=== PATIENT | male | born 1975 | race Two or more races ===

== ENCOUNTER 2019-02-28 23:09 | Observation (INO) ==
[2019-02-28] MEDS ORDERED: HydrALAZINE HCL 20 MG/ML VIAL IV STA (23:28)
[2019-02-28 23:38] LABS: Basophils # (auto) 0.03 K/uL (0-0.2); Basophils % (auto) 0.3 %; Eosinophils # (auto) 0.47 K/uL (0-0.5); Eosinophils % (auto) 5.4 %; Hematocrit (blood only) 46.1 % (42-52); Immature Granulocytes # (auto) 0.04 K/uL (0.00-0.02); Immature Granulocytes % (auto) 0.5 %; Lymphocytes # (auto) 2.58 K/uL (1.2-3.4); Lymphocytes % (auto) 29.5 %; Mean Corpuscular Hgb Conc 34.7 g/dL (32-36); Mean Corpuscular Volume 92.2 fL (80-100); Mean Platelet Volume 10.7 fL (7.4-10.4); Monocytes # (auto) 0.52 K/uL (0.11-0.59); Monocytes % (auto) 5.9 %; Neutrophils % (auto) 58.4 %; Platelet Count 258 K/uL (130-400); RDW Coefficient of Variation 12.7 % (11.5-14.5); RDW Standard Deviation 42.5 fL (36.4-46.3); White Blood Count 8.74 K/uL (4.8-10.8)
[2019-03-01 00:19] LABS: Albumin Globulin Ratio 0.9 (0.9-2); Albumin Level 3.8 gm/dl (3.4-5.0); BUN Creatinine Ratio 14.2 (10-20); Bilirubin,Total 0.5 mg/dl (0.2-1); Calcium 8.9 mg/dl (8.5-10.1); Creatinine Clr Calc Pharmacy 115.6 ml/min; Est GFR (African American) 94.8; Est GFR (Non-African American) 81.8; Globulin 4.1 gm/dl (2.5-4.0); Magnesium 2.1 mg/dl (1.8-2.4); Potassium 4.1 mmol/L (3.5-5.1); Thyroid Stimulating Hormone 2.21 uIu/ml (0.300-4.500); Total Protein 7.9 gm/dl (6.4-8.2); Troponin I 0.088 ng/ml (0-0.045)
[2019-03-01] MEDS ORDERED: HydrALAZINE HCL 20 MG/ML VIAL IV STA (00:20)
[2019-03-01] MEDS ORDERED: OPTIRAY 320 125ml IV PRN (00:57)
[2019-03-01] MEDS ORDERED: LOSARTAN POTASSIUM 25 MG TAB PO STA ×2 (01:12→03:48)
[2019-03-01 01:22] LABS: Appearance Urine Clear (Clear); Bilirubin Urine Negative (Negative); Blood Urine Negative (Negative); Color Urine Yellow; Glucose Urine UA Negative (Negative); Ketones Urine Negative (Negative); Leukocyte Esterase Urine Negative (Negative); Nitrite Urine Negative (Negative); Protein Urine Negative (Negative); Specific Gravity Urine > 1.045 (1.000-1.030); Urobilinogen Urine Negative (Negative); pH Urine 7.5 (4.5-7.5)
[2019-03-01 01:26] LABS: Partial Thromboplastin Ratio 0.9; Partial Thromboplastin Time 24.7 Seconds (21.0-31.0)
[2019-03-01 01:42] LABS: Amphetamines+Metham, Urine Neg (Neg); Barbiturates, Urine Neg (Neg); Benzodiazepine, Urine Neg (Neg); Cocaine, Urine Neg (Neg); MDMA (Ecstacy), Urine Neg (Neg); Methadone, Urine Neg (Neg); Opiate, Urine Neg (Neg); Phencyclidine, Urine Neg (Neg)
--- NOTE | 2019-03-01 01:54 | Emergency Department Note ---
History of Present Illness General Chief complaint: Dizziness Stated complaint: TIGHTNESS IN CHEST History of Present Illness This 43-year-old presents to the ER complaining of high blood pressure, headache, lightheaded, dizzy, not feeling right and leg tingling Location: Generalized Quality: Lightheaded Severity: Moderate Duration: Tonight Timing: Symptoms started tonight Context: Patient was confused and brought him in Modifying factors: better with nothing; worse with activity Patient has not taken his blood pressure medicines for the past 3 days. He was hospitalized last year in [place] for hypertensive encephalopathy. Symptoms feel somewhat similar. He was told he had some abnormality with his heart but is unsure. Patient states he felt off and felt lightheaded and his head started hurting and felt tingling in his legs and some mild discomfort in his chest. He sat down felt slightly better but symptoms got worse and he came here. He was confused for a few minutes but that has now resolved. Patient denies current chest pain, dyspnea, abdominal pain, localized numbness or tingling or weakness. Patient denies any other medical problems besides his high blood pressure. They just moved to the area 3 months ago. Home Medications Home Medications Medication Instructions Recorded Confirmed Type losartan 25 mg PO DAILY 02/28/19 02/28/19 History metoprolol succinate 25 mg PO DAILY 02/28/19 02/28/19 History nebivolol [Bystolic] 10 mg PO DAILY 02/28/19 02/28/19 History nifedipine 10 mg PO DAILY 02/28/19 02/28/19 History Allergies Allergy/AdvReac Type Severity Reaction Status Date / Time No Known Allergies Allergy Unverified 02/28/19 23:39 Past Med/Surg History Medical History (Updated 03/01/19 @ 04:09 by Rebeca Zamora PA-C) High blood pressure Surgical History No pertinent past surgical history Social History Preferred Language: Romansh Communication Ability: Effective Beliefs That Will Affect Care: None Current Living Situation: Spouse Feels Safe at Home: Yes Safety Concerns: Feels Safe At This Time Smoking Status: Never smoker Hx Alcohol Use: No Hx Substance Use: No Review of Systems A total of 10 systems reviewed and were otherwise negative Physical Exam Vital Signs Vital Signs - 24 hr 02/28/19 23:12 02/28/19 23:28 02/28/19 23:37 Temperature 36.4 C L Temperature Source Oral Pulse Rate 62 Pulse Rate [Apical] 65 Pulse Rate from SpO2 Sensor Respiratory Rate 16 18 Respiratory Effort / Characteristics Non-Labored Spontaneous Respiratory Depth Normal Blood Pressure 247/145 H Blood Pressure [Left Arm] 167/114 H Blood Pressure Mean 179 Blood Pressure Mean [Left Arm] 131 Pulse Oximetry 97 98 97 Oxygen Delivery Method Room Air Room Air Room Air Sepsis Recent Fever Within 48 Hours No Sepsis New/Unexplained Change in Mental Status No Sepsis Action Taken by Nursing No Action Required 02/28/19 23:45 02/28/19 23:56 03/01/19 00:28 Temperature Temperature Source Pulse Rate Pulse Rate [Apical] 67 67 74 Pulse Rate from SpO2 Sensor Respiratory Rate 18 18 18 Respiratory Effort / Characteristics Non-Labored Spontaneous Non-Labored Spontaneous Non-Labored Spontaneous Respiratory Depth Normal Normal Normal Blood Pressure Blood Pressure [Left Arm] 172/125 H 215/136 H 158/108 H Blood Pressure Mean Blood Pressure Mean [Left Arm] 140 162 124 Pulse Oximetry 98 97 96 Oxygen Delivery Method Room Air Room Air Room Air Sepsis Recent Fever Within 48 Hours Sepsis New/Unexplained Change in Mental Status Sepsis Action Taken by Nursing 03/01/19 00:57 03/01/19 01:34 03/01/19 02:27 Temperature Temperature Source Pulse Rate Pulse Rate [Apical] 72 70 57 L Pulse Rate from SpO2 Sensor Respiratory Rate 18 18 16 Respiratory Effort / Characteristics Non-Labored Spontaneous Non-Labored Spontaneous Non-Labored Spontaneous Respiratory Depth Normal Normal Normal Blood Pressure Blood Pressure [Left Arm] 163/105 H 169/107 H 140/106 H Blood Pressure Mean Blood Pressure Mean [Left Arm] 124 127 117 Pulse Oximetry 97 97 96 Oxygen Delivery Method Room Air Room Air Room Air Sepsis Recent Fever Within 48 Hours Sepsis New/Unexplained Change in Mental Status Sepsis Action Taken by Nursing 03/01/19 02:30 03/01/19 02:45 03/01/19 03:01 Temperature Temperature Source Pulse Rate 60 73 65 Pulse Rate [Apical] Pulse Rate from SpO2 Sensor 66 Respiratory Rate 18 21 21 Respiratory Effort / Characteristics Respiratory Depth Blood Pressure 145/97 H 154/93 H 142/93 H Blood Pressure [Left Arm] Blood Pressure Mean 108 105 103 Blood Pressure Mean [Left Arm] Pulse Oximetry 95 96 96 Oxygen Delivery Method Room Air Room Air Room Air Sepsis Recent Fever Within 48 Hours Sepsis New/Unexplained Change in Mental Status Sepsis Action Taken by Nursing VITALS: Vitals are noted on the nurse's note and reviewed by myself. Vital signs hypertensive. GENERAL: Pleasant male, in no acute distress, nondiaphoretic, well-developed well-nourished. SKIN: The skin was without rashes, erythema, edema, or bruising. There is no tenting of the skin. Capillary reflex less than 2 seconds. HEAD: Normocephalic atraumatic. EARS: External auditory canals clear EYES: Pupils equal round and reactive to light and accommodation. Conjunctivae without injection, sclerae without icterus. Extraocular movements intact. NOSE: Patent, turbinates without inflammation or discharge. MOUTH: Mucous membranes moist. Pharynx without erythema or exudate. Uvula midline. Airway patent. Tongue does not deviate. NECK: Supple without nuchal rigidity. No lymphadenopathy. No thyromegaly. Cervical spine is nontender. No JVD. HEART: Regular rate and rhythm LUNGS: Clear to auscultation bilaterally without wheezes, rales or rhonchi. No retractions or accessory muscle use. ABDOMEN: Positive bowel sounds x 4. Normal tympanic percussion. Soft, nontender, without masses or organomegaly. Block sign negative. No guarding or rebound tenderness. No CVA tenderness MUSCULOSKELETAL: No muscle atrophy, erythema, or edema noted. 5 out of 5 strength throughout. NEURO: Patient was alert and oriented to person place and time. Normal sensation to light and sharp touch. No focal neurological deficits. Cranial nerves II through XII grossly intact. No pronator. Cerebellar exam intact. Course Administered Medications Lactated Ringer's (Lr) 1,000 mls @ 40 mls/hr IV .Q24H ONE Stop: 03/02/19 03:47 Last Admin: 03/01/19 03:58 Dose: 40 mls/hr Documented by: [id number] Discontinued Medications Hydralazine HCl (Hydralazine Hcl) 10 mg IV NOW STA Stop: 02/28/19 23:29 Last Admin: 02/28/19 23:33 Dose: 10 mg Documented by: [id number] Hydralazine HCl (Hydralazine Hcl) 10 mg IV NOW STA Stop: 03/01/19 00:21 Last Admin: 03/01/19 01:37 Dose: Not Given Documented by: [id number] Ioversol (Optiray 320 125ml) 125 ml IV ONCE PRN PRN Reason: Interaction Checking Stop: 03/05/19 00:56 Last Admin: 03/01/19 00:58 Dose: 117 ml Documented by: [id number] Losartan Potassium (Cozaar) 25 mg PO NOW STA Stop: 03/01/19 01:13 Last Admin: 03/01/19 01:34 Dose: 25 mg Documented by: [id number] Losartan Potassium (Cozaar) 75 mg PO NOW STA Stop: 03/01/19 03:49 Last Admin: 03/01/19 04:07 Dose: 75 mg Documented by: [id number] Critical Care Time Critical Care Time: Yes Total Critical Care Time: 30 I have personally spent greater than 30 minutes of critical care time in the direct management of this patient. This includes bedside care, interpretation of diagnostic studies, and testing, discussion with consultants, patient, and family members, and other required patient management activities. This 30 minutes is in excess of all separately billable procedures. Medical Decision Making Medical Records Attestation: I reviewed the patient's medical records. Home Medications Current Medication List: was personally reviewed by me Laboratory Data Attestation: I reviewed the patient's lab results. Result diagrams: 02/28/19 23:25 02/28/19 23:25 Lab Results 02/28/19 02/28/19 02/28/19 Range/Units 23:25 23:25 23:25 WBC 8.74 (4.8-10.8) K/uL RBC 5.00 (4.7-6.1) M/uL Hgb 16.0 (14.0-18.0) g/dL Hct 46.1 (42-52) % MCV 92.2 (80-100) fL MCH 32.0 (25-34) pg MCHC 34.7 (32-36) g/dL RDW Std Deviation 42.5 (36.4-46.3) fL RDW Coeff of Shabana 12.7 (11.5-14.5) % Plt Count 258 (130-400) K/uL MPV 10.7 H (7.4-10.4) fL Immature Gran % (Auto) 0.5 % Neut % (Auto) 58.4 % Lymph % (Auto) 29.5 % Mccormick % (Auto) 5.9 % Eos % (Auto) 5.4 % Baso % (Auto) 0.3 % Immature Gran # (Auto) 0.04 H (0.00-0.02) K/uL Neut # (Auto) 5.10 (1.4-6.5) K/uL Lymph # (Auto) 2.58 (1.2-3.4) K/uL Mccormick # (Auto) 0.52 (0.11-0.59) K/uL Eos # (Auto) 0.47 (0-0.5) K/uL Baso # (Auto) 0.03 (0-0.2) K/uL APTT 24.7 (21.0-31.0) Seconds PTT Ratio 0.9 Sodium 140 (136-145) mmol/L Potassium 4.1 (3.5-5.1) mmol/L Chloride 108 H (98-107) mmol/L Carbon Dioxide 29 (21-32) mmol/L Anion Gap 3.0 (3-11) BUN 16 (7-18) mg/dl Creatinine 1.10 (0.6-1.4) mg/dl Est Cr Clr Drug Dosing 115.6 ml/min Est GFR ( Amer) 94.8 Est GFR (Non-Af Amer) 81.8 BUN/Creatinine Ratio 14.2 (10-20) Glucose 128 H (70-99) mg/dl Calcium 8.9 (8.5-10.1) mg/dl Magnesium 2.1 (1.8-2.4) mg/dl Total Bilirubin 0.5 (0.2-1) mg/dl AST 26 (15-37) U/L ALT 52 (12-78) U/L Alkaline Phosphatase 76 (45-117) U/L Troponin I 0.088 H* (0-0.045) ng/ml Total Protein 7.9 (6.4-8.2) gm/dl Albumin 3.8 (3.4-5.0) gm/dl Globulin 4.1 H (2.5-4.0) gm/dl Albumin/Globulin Ratio 0.9 (0.9-2) TSH 2.210 (0.300-4.500) uIu/ml Urine Color Urine Appearance (Clear) Urine pH (4.5-7.5) Ur Specific [place] (1.000-1.030) Urine Protein (Negative) Urine Glucose (UA) (Negative) Urine Ketones (Negative) Urine Blood (Negative) Urine Nitrite (Negative) Urine Bilirubin (Negative) Urine Urobilinogen (Negative) Ur Leukocyte Esterase (Negative) Urine Opiates Screen (Neg) Ur Methadone, Qual (Neg) Urine Barbiturates (Neg) Ur Phencyclidine (PCP) (Neg) U Amphetamin/Meth Scrn (Neg) MDMA (Ecstasy) Screen (Neg) U Benzodiazepines Scrn (Neg) Ur Cocaine Metabolite (Neg) U Marijuana (THC) Screen (Neg) Ethyl Alcohol mg/dL (0-3) mg/dl 03/01/19 03/01/19 03/01/19 Range/Units 01:15 01:15 02:17 WBC (4.8-10.8) K/uL RBC (4.7-6.1) M/uL Hgb (14.0-18.0) g/dL Hct (42-52) % MCV (80-100) fL MCH (25-34) pg MCHC (32-36) g/dL RDW Std Deviation (36.4-46.3) fL RDW Coeff of Shabana (11.5-14.5) % Plt Count (130-400) K/uL MPV (7.4-10.4) fL Immature Gran % (Auto) % Neut % (Auto) % Lymph % (Auto) % Mccormick % (Auto) % Eos % (Auto) % Baso % (Auto) % Immature Gran # (Auto) (0.00-0.02) K/uL Neut # (Auto) (1.4-6.5) K/uL Lymph # (Auto) (1.2-3.4) K/uL Mccormick # (Auto) (0.11-0.59) K/uL Eos # (Auto) (0-0.5) K/uL Baso # (Auto) (0-0.2) K/uL APTT (21.0-31.0) Seconds PTT Ratio Sodium (136-145) mmol/L Potassium (3.5-5.1) mmol/L Chloride (98-107) mmol/L Carbon Dioxide (21-32) mmol/L Anion Gap (3-11) BUN (7-18) mg/dl Creatinine (0.6-1.4) mg/dl Est Cr Clr Drug Dosing ml/min Est GFR ( Amer) Est GFR (Non-Af Amer) BUN/Creatinine Ratio (10-20) Glucose (70-99) mg/dl Calcium (8.5-10.1) mg/dl Magnesium (1.8-2.4) mg/dl Total Bilirubin (0.2-1) mg/dl AST (15-37) U/L ALT (12-78) U/L Alkaline Phosphatase (45-117) U/L Troponin I 0.090 H* (0-0.045) ng/ml Total Protein (6.4-8.2) gm/dl Albumin (3.4-5.0) gm/dl Globulin (2.5-4.0) gm/dl Albumin/Globulin Ratio (0.9-2) TSH (0.300-4.500) uIu/ml Urine Color Yellow Urine Appearance Clear (Clear) Urine pH 7.5 (4.5-7.5) Ur Specific [place] > 1.045 H (1.000-1.030) Urine Protein Negative (Negative) Urine Glucose (UA) Negative (Negative) Urine Ketones Negative (Negative) Urine Blood Negative (Negative) Urine Nitrite Negative (Negative) Urine Bilirubin Negative (Negative) Urine Urobilinogen Negative (Negative) Ur Leukocyte Esterase Negative (Negative) Urine Opiates Screen Neg (Neg) Ur Methadone, Qual Neg (Neg) Urine Barbiturates Neg (Neg) Ur Phencyclidine (PCP) Neg (Neg) U Amphetamin/Meth Scrn Neg (Neg) MDMA (Ecstasy) Screen Neg (Neg) U Benzodiazepines Scrn Neg (Neg) Ur Cocaine Metabolite Neg (Neg) U Marijuana (THC) Screen Neg (Neg) Ethyl Alcohol mg/dL (0-3) mg/dl 03/01/19 Range/Units 02:17 WBC (4.8-10.8) K/uL RBC (4.7-6.1) M/uL Hgb (14.0-18.0) g/dL Hct (42-52) % MCV (80-100) fL MCH (25-34) pg MCHC (32-36) g/dL RDW Std Deviation (36.4-46.3) fL RDW Coeff of Shabana (11.5-14.5) % Plt Count (130-400) K/uL MPV (7.4-10.4) fL Immature Gran % (Auto) % Neut % (Auto) % Lymph % (Auto) % Mccormick % (Auto) % Eos % (Auto) % Baso % (Auto) % Immature Gran # (Auto) (0.00-0.02) K/uL Neut # (Auto) (1.4-6.5) K/uL Lymph # (Auto) (1.2-3.4) K/uL Mccormick # (Auto) (0.11-0.59) K/uL Eos # (Auto) (0-0.5) K/uL Baso # (Auto) (0-0.2) K/uL APTT (21.0-31.0) Seconds PTT Ratio Sodium (136-145) mmol/L Potassium (3.5-5.1) mmol/L Chloride (98-107) mmol/L Carbon Dioxide (21-32) mmol/L Anion Gap (3-11) BUN (7-18) mg/dl Creatinine (0.6-1.4) mg/dl Est Cr Clr Drug Dosing ml/min Est GFR ( Amer) Est GFR (Non-Af Amer) BUN/Creatinine Ratio (10-20) Glucose (70-99) mg/dl Calcium (8.5-10.1) mg/dl Magnesium (1.8-2.4) mg/dl Total Bilirubin (0.2-1) mg/dl AST (15-37) U/L ALT (12-78) U/L Alkaline Phosphatase (45-117) U/L Troponin I (0-0.045) ng/ml Total Protein (6.4-8.2) gm/dl Albumin (3.4-5.0) gm/dl Globulin (2.5-4.0) gm/dl Albumin/Globulin Ratio (0.9-2) TSH (0.300-4.500) uIu/ml Urine Color Urine Appearance (Clear) Urine pH (4.5-7.5) Ur Specific [place] (1.000-1.030) Urine Protein (Negative) Urine Glucose (UA) (Negative) Urine Ketones (Negative) Urine Blood (Negative) Urine Nitrite (Negative) Urine Bilirubin (Negative) Urine Urobilinogen (Negative) Ur Leukocyte Esterase (Negative) Urine Opiates Screen (Neg) Ur Methadone, Qual (Neg) Urine Barbiturates (Neg) Ur Phencyclidine (PCP) (Neg) U Amphetamin/Meth Scrn (Neg) MDMA (Ecstasy) Screen (Neg) U Benzodiazepines Scrn (Neg) Ur Cocaine Metabolite (Neg) U Marijuana (THC) Screen (Neg) Ethyl Alcohol mg/dL < 3.0 (0-3) mg/dl Imaging Data Attestation: I personally reviewed and interpreted this imaging study as follows: Blood Pressure Blood Pressure Findings: Elevated blood pressure Blood Pressure Disposition: further management by hospitalist [facility] Narrative Prior records/ancillary studies reviewed regarding the history above. Triage Nursing notes reviewed. Additional history obtained from the family. The patient's history was concerning for hypertension. Differential diagnosis: Etiologies such as benign hypertension, hypertensive emergency, cardiovascular pathology, pheochromocytoma, electrolyte abnormality, renal disease, endorgan damage, as well as others were entertained. Physical examination: As above. No signs of end organ damage. ER treatment provided: Hydralazine On reassessment the patient felt better. Diagnostic interpretation by me: The electrocardiogram was normal sinus, normal intervals, Q wave in lead III, no acute ST-T changes, rate of 58. Impression sinus bradycardia interpreted by myself. Repeat EKG is unchanged as patient's troponin was elevated. I think arrhythmia is unlikely. EKG shows normal sinus rhythm with no interval abnormalities such as QT prolongation or WPW. There are no findings to suggest Brugada syndrome. Cardiac monitoring in the emergency department reveals no tachycardic or bradycardic dysrhythmia. Hypertrophic cardiomyopathy was considered but there are no clear historical elements pointing toward this. EKG is not suggestive. The QRS voltage is not extremely large and there are no suggestive Q waves. The labs revealed elevated troponin. Stable H&H Imaging studies: Chest x-ray shows cardiomegaly without acute consolidation, pneumothorax or free air. Possible mildly enlarged mediastinum per my interpretation. CT CHEST Without Contrast: No acute abnormality identified in the chest. Borderline size of the cardiac silhouette. Nonspecific small mediastinal lymph nodes which may be reactive. Mild bilateral gynecomastia. CTA CHEST: No pulmonary embolus identified. No aortic aneurysm or dissection. No acute pulmonary parenchymal abnormality identified. Borderline size of the cardiac silhouette. Nonspecific small mediastinal lymph nodes which may be reactive. Mild bilateral gynecomastia. Radiologist: Sylvia Veloz M.D. CT HEAD: No ICH, mass effect or edema. No evidence of acute cortical stroke. Visualized sinuses and mastoid air cells are clear. Radiologist: Walt Grimm MD Consultation: A consultation was placed with Dr Swartz, hospitalist. The case was discussed and diagnostics were reviewed. The patient was evaluated in the ER for further treatment. TIA Score: Age > 60:(1) 0 BP >140 >90 (1): 1 Clinical features (unilateral weakness) (2): 0 CF speech disturbance (1): 1 Duration of symptoms 10-60min (1): 1 Duration >60min (2): 0 Diabetes (1): 0 Score @ 2days @ 7days @ 90days 0-3 low 1% 1.2% 3.1% 4-5 mod 4.1% 5.9% 9.8% 6-7 high 8.1% 11.7% 17.8% Total: 3 This appears to be consistent with hypertensive emergency with TIA symptoms. Patient's blood pressure came down after being medicated as above. He was reassessed multiple times. His symptoms were improving. His troponin was elevated. Repeat EKG is unchanged. Patient had a brief episode of discomfort in his chest but none currently. Patient is agreeable treatment plan of admission. TIA score is 3 which is low risk. Patient has been noncompliant with his blood pressure medicines. I did ask for the records from his hospital in [place] to be sent here. They have not come yet. Medicine was consulted and will evaluate the patient for admission. By the evaluation outlined above emergent etiologies such as pheochromocytoma, endorgan damage, aortic dissection, pulmonary embolism, pneumonia, pneumothorax, infections, gastrointestinal, as well as others were deemed relatively unlikely. The pt informed about the findings as listed above. All questions were answered and pleased with the treatment. Case reviewed with my attending The chart was completed utilizing [employer] voice recognition software. Grammatical errors, random word insertions, pronoun errors, and incomplete sentences are an occassional consequence of this system due to software limitations, ambient noise, and hardware issues. Any formal questions or concerns about the content, text, or information contained within the body of this dictation should be directly addressed to the physician restaurant assistant manager for clarification. Impression & Plan Hypertensive emergency, Elevated troponin, Light-headed, Numbness and tingling of leg, Headache Discharge Plan Visit Data *Final* Discharge Date/Time: 03/01/19 03:20 Chief Complaint: Dizziness Stated Complaint: TIGHTNESS IN CHEST ED Provider: Sari Campbell ED Midlevel Provider: Rebeca Zamora Discharge Problem: Hypertensive emergency, Elevated troponin, Light-headed, Numbness and tingling of leg, Headache Patient Disposition: Admitted As Inpatient Discharge Instructions Interventions: ED Discharge Assessment Last Done: 03/01/19 03:20
--- NOTE | 2019-03-01 03:01 | History & Physical Report ---
Date of Service March 01, 2019 Assessment & Plan (1) Hypertensive crisis: Secondary to medication noncompliance Rule out NEO Troponin elevation secondary to uncontrolled BP Hyperglycemia rule out DM OBS PCU Continue losartan, Lopressor, nifedipine at current doses, add Norvasc if uncontrolled Stop Bystolic (Patient previous PCP for [place] had contemplated stopping Bystolic given concurrent Lopressor Rx.) Outpatient sleep study Follow troponin, TTE if with progression Check hemoglobin A1c DVT prophylaxis. Lovenox subcu Full code History of Present Illness Chief Complaint: Headache Primary Care Provider: Dr. Martinez (Patient still has not meet him .) History obtained from patient, family, and records. Medical history significant for hypertension. Patient and family relocated to [facility] from [place], [place] about 5 months ago for 's new job at [employer]. Patient has yet to establish care with [facility] PCP at [facility]. Last year, patient admitted at a hospital in [place] for uncontrolled blood pressure. Patient required ICU admission. Discharged on 4 blood pressure medications (Metoprolol, Bystolic, Losartan, and Nifedipine.). 3 days ago, patient stopped taking blood pressure medications because he was feeling lazy. Yesterday, patient noted lightheadedness, achy headache symptoms with transient squeezing discomfort of the chest. No shortness of breath, no cough. Patient does not take BP at home. Misplaced BP machine during recent move. No unusual stress at home. No inordinate caffeine, NSAID intake. Patient thinks he might have sleep apnea. No prior sleep studies. SBP noted to be 210s at the highest at the ER. IV hydralazine given at the ER. SBP currently 160s. Patient feeling much better. 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 Allergies Allergy/AdvReac Type Severity Reaction Status Date / Time No Known Allergies Allergy Unverified 02/28/19 23:39 Home Medications Home Medications Medication Instructions Recorded Confirmed Type losartan 25 mg PO DAILY 02/28/19 02/28/19 History nebivolol [Bystolic] 10 mg PO DAILY 02/28/19 02/28/19 History nifedipine 10 mg PO DAILY 02/28/19 02/28/19 History metoprolol tartrate 25 mg PO BID 03/01/19 03/01/19 History Past Med/Surg History Medical History (Updated 03/01/19 @ 06:40 by Alfonso Swartz MD) High blood pressure Surgical History No pertinent past surgical history Social History Preferred Language: Slovenian Communication Ability: Effective Beliefs That Will Affect Care: None Current Living Situation: Spouse Feels Safe at Home: Yes Safety Concerns: Feels Safe At This Time Smoking Status: Never smoker Hx Alcohol Use: No Hx Substance Use: No Review of Systems Review of Systems: As per HPI, all 10 systems reviewed, all other ROS negative Physical Exam Physical Exam: GENERAL: Slightly uncomfortable, obese, no respiratory distress SKIN: Normal color, warm HEENT: Bespectacled, [place] palpebral conjunctivae, no ptosis, dry buccal mucosa NECK : Supple, short neck, no tenderness CHEST : CTA, no tenderness HEART : RRR, no obvious murmurs ABDOMEN: Some distention, nontender EXTREMITIES : No LE swelling/tenderness, no other conspicuous deformities noted NEUROLOGIC : Coherent, no facial asymmetry, no other gross focality Results & Data Vital Signs (Past 12 Hours) Vital Signs Temp Pulse Pulse Resp BP BP Pulse Ox 03/01/19 02:45 73 21 154/93 H 96 03/01/19 02:30 60 18 145/97 H 95 03/01/19 02:27 57 L 16 140/106 H 96 03/01/19 01:34 70 18 169/107 H 97 03/01/19 00:57 72 18 163/105 H 97 03/01/19 00:28 74 18 158/108 H 96 02/28/19 23:56 67 18 215/136 H 97 02/28/19 23:45 67 18 172/125 H 98 02/28/19 23:37 65 18 167/114 H 97 02/28/19 23:28 98 02/28/19 23:12 36.4 C L 62 16 247/145 H 97 Laboratory Results Laboratory Results WBC 8.74 K/uL (4.8-10.8) 02/28/19 23:25 RBC 5.00 M/uL (4.7-6.1) 02/28/19 23:25 Hgb 16.0 g/dL (14.0-18.0) 02/28/19 23:25 Hct 46.1 % (42-52) 02/28/19 23:25 MCV 92.2 fL (80-100) 02/28/19 23:25 MCH 32.0 pg (25-34) 02/28/19 23:25 MCHC 34.7 g/dL (32-36) 02/28/19 23:25 RDW Std Deviation 42.5 fL (36.4-46.3) 02/28/19 23:25 RDW Coeff of Shabana 12.7 % (11.5-14.5) 02/28/19 23: Plt Count 258 K/uL (130-400) 02/28/19 23: MPV 10.7 fL (7.4-10.4) H 02/28/19 23:25 Immature Gran % (Auto) 0.5 % 02/28/19 23:25 Neut % (Auto) 58.4 % 02/28/19 23:25 Lymph % (Auto) 29.5 % 02/28/19 23:25 [place] % (Auto) 5.9 % 02/28/19 23:25 Eos % (Auto) 5.4 % 02/28/19 23:25 Baso % (Auto) 0.3 % 02/28/19 23: Immature Gran # (Auto) 0.04 K/uL (0.00-0.02) H 02/28/19 23:25 Neut # (Auto) 5.10 K/uL (1.4-6.5) 02/28/19 23:25 Lymph # (Auto) 2.58 K/uL (1.2-3.4) 02/28/19 23:25 [place] # (Auto) 0.52 K/uL (0.11-0.59) 02/28/19 23:25 Eos # (Auto) 0.47 K/uL (0-0.5) 02/28/19 23:25 Baso # (Auto) 0.03 K/uL (0-0.2) 02/28/19 23:25 APTT 24.7 Seconds (21.0-31.0) 02/28/19 23:25 PTT Ratio 0.9 01/01/20 23:25 Sodium 140 mmol/L (136-145) 02/28/19 23:25 Potassium 4.1 mmol/L (3.5-5.1) 02/28/19 23:25 Chloride 108 mmol/L (98-107) H 02/28/19 23:25 Carbon Dioxide 29 mmol/L (21-32) 02/28/19 23:25 Anion Gap 3.0 (3-11) 02/28/19 23:25 BUN 16 mg/dl (7-18) 02/28/19 23:25 Creatinine 1.10 mg/dl (0.6-1.4) 02/28/19 23:25 Est Cr Clr Drug Dosing 115.6 ml/min 02/28/19 23:25 Est GFR ( Amer) 94.8 02/28/19 23:25 Est GFR (Non-Af Amer) 81.8 02/28/19 23:25 BUN/Creatinine Ratio 14.2 (10-20) 02/28/19 23:25 Glucose 128 mg/dl (70-99) H 02/28/19 23:25 Calcium 8.9 mg/dl (8.5-10.1) 02/28/19 23:25 Magnesium 2.1 mg/dl (1.8-2.4) 02/28/19 23:25 Total Bilirubin 0.5 mg/dl (0.2-1) 02/28/19 23:25 AST 26 U/L (15-37) 02/28/19 23:25 ALT 52 U/L (12-78) 02/28/19 23:25 Alkaline Phosphatase 76 U/L (45-117) 02/28/19 23:25 Troponin I 0.088 ng/ml (0-0.045) H* 02/28/19 23:25 Total Protein 7.9 gm/dl (6.4-8.2) 02/28/19 23:25 Albumin 3.8 gm/dl (3.4-5.0) 02/28/19 23:25 Globulin 4.1 gm/dl (2.5-4.0) H 02/28/19 23:25 Albumin/Globulin Ratio 0.9 (0.9-2) 02/28/19 23:25 TSH 2.210 uIu/ml (0.300-4.500) 02/28/19 23:25 Urine Color Yellow 03/01/19 01:15 Urine Appearance Clear (Clear) 03/01/19 01:15 Urine pH 7.5 (4.5-7.5) 03/01/19 01:15 Ur Specific [place] > 1.045 (1.000-1.030) H 03/01/19 01:15 Urine Protein Negative (Negative) 03/01/19 01:15 Urine Glucose (UA) Negative (Negative) 03/01/19 01:15 Urine Ketones Negative (Negative) 03/01/19 01:15 Urine Blood Negative (Negative) 03/01/19 01:15 Urine Nitrite Negative (Negative) 03/01/19 01:15 Urine Bilirubin Negative (Negative) 03/01/19 01:15 Urine Urobilinogen Negative (Negative) 03/01/19 01:15 Ur Leukocyte Esterase Negative (Negative) 03/01/19 01:15 Urine Opiates Screen Neg (Neg) 03/01/19 01:15 Ur Methadone, Qual Neg (Neg) 03/01/19 01:15 Urine Barbiturates Neg (Neg) 03/01/19 01:15 Ur Phencyclidine (PCP) Neg (Neg) 03/01/19 01:15 U Amphetamin/Meth Scrn Neg (Neg) 03/01/19 01:15 MDMA (Ecstasy) Screen Neg (Neg) 03/01/19 01:15 U Benzodiazepines Scrn Neg (Neg) 03/01/19 01:15 Ur Cocaine Metabolite Neg (Neg) 03/01/19 01:15 U Marijuana (THC) Screen Neg (Neg) 03/01/19 01:[address] head initial read: No ICH, mass-effect, or edema. No evidence of acute cortical stroke. CT chest initial read: No pulmonary embolus identified. No aortic aneurysm/dissection. Borderline cardiomegaly. Nonspecific small mediastinal lymph nodes may be reactive. Mild bilateral gynecomastia. EKG as per my interpretation rate 70, NSR, LAD, LAFB, incomplete RBBB, LVH, T wave abnormalities inferior leads
[2019-03-01] MEDS ORDERED: LORazepam 0.5 MG/1 ML VIAL IV PRN (03:48)
[2019-03-01] MEDS ORDERED: TRAMADOL HCL 50 MG TABLET PO PRN (03:48)
[2019-03-01] MEDS ORDERED: NITROGLYCERIN SL 0.4 MG/TAB TAB SL PRN (03:48)
[2019-03-01] MEDS ORDERED: LACTATED RINGER'S 1,000 ML IV ONE (03:48)
[2019-03-01] MEDS ORDERED: PROMETHAZINE HCL 12.5 MG in SODIUM CHLORIDE 0.9% 50 ML IV PRN (03:48)
[2019-03-01] MEDS: METOPROLOL TARTRATE 25 MG TAB PO SCH ×2 (05:49→20:47)
[2019-03-01 06:14] LABS: Estimated Average Glucose 103 mg/dl; Hemoglobin A1C 5.2 % (4.5-5.6)
[2019-03-01 06:19] LABS: Basophils # (auto) 0.04 K/uL (0-0.2); Basophils % (auto) 0.5 %; Eosinophils # (auto) 0.55 K/uL (0-0.5); Eosinophils % (auto) 6.2 %; Hematocrit (blood only) 43.6 % (42-52); Hemoglobin 15.1 g/dL (14.0-18.0); Immature Granulocytes # (auto) 0.03 K/uL (0.00-0.02); Immature Granulocytes % (auto) 0.3 %; Lymphocytes % (auto) 28.3 %; Mean Corpuscular Hgb Conc 34.6 g/dL (32-36); Mean Corpuscular Volume 92.4 fL (80-100); Mean Platelet Volume 10.5 fL (7.4-10.4); Monocytes # (auto) 0.54 K/uL (0.11-0.59); Monocytes % (auto) 6.1 %; Neutrophils # (auto) 5.18 K/uL (1.4-6.5); Neutrophils % (auto) 58.6 %; Platelet Count 234 K/uL (130-400); RDW Coefficient of Variation 12.8 % (11.5-14.5); RDW Standard Deviation 43.1 fL (36.4-46.3); Red Blood Count 4.72 M/uL (4.7-6.1); White Blood Count 8.84 K/uL (4.8-10.8)
[2019-03-01 06:44] LABS: BUN Creatinine Ratio 16.4 (10-20); Calcium 9.3 mg/dl (8.5-10.1); Creatinine Clr Calc Pharmacy 135.9 ml/min; Est GFR (African American) 116.1; Est GFR (Non-African American) 100.2; Potassium 3.8 mmol/L (3.5-5.1)
--- NOTE | 2019-03-01 06:47 | CT Scan Report ---
CT ANGIOGRAPHY OF THE CHEST DISSECTION PROTOCOL CLINICAL HISTORY: weak, HTN emergency, + trop COMPARISON STUDY: Chest radiograph February 28, 2019. TECHNIQUE: Before and following the IV administration of 117 mL of [id number]-[id number], helical axial images of the chest were obtained. Maximal intensity projections and sagittal and coronal reformats were vi ewed on an independent 3D workstation. IV contrast was administered without complication. Automated exposure control was utilized for the study. A dose lowering technique was utilized adhering to the principles of ALARA. CT DOSE: 1968.79 mGy.cm FINDINGS: The caliber of the thoracic aorta is normal. There is no intramural hematoma or dissection within the thoracic aorta. The heart is mildly enlarged. There is no pericardial effusion. No enlarg ed thoracic lymph nodes are present. The central airways are patent. There is no pneumothorax or pleu ral effusion. There is no consolidation or evidence for pulmonary edema. Bony thorax is unremarkable. Upper abdomen is unremarkable. IMPRESSION: 1. No thoracic aortic dissection. 2. No acute findings within the chest. 3. Mild cardiomegaly. ACT 112: Negative or not required by law. Electronically signed by: Alan Salgado M.D. 03/01/2019 6:45 AM
--- NOTE | 2019-03-01 06:50 | CT Scan Report ---
CT OF THE HEAD WITHOUT CONTRAST CLINICAL HISTORY: Hypertension, confused COMPARISON STUDY: No previous studies for comparison. CT DOSE: 614.27 mGy.cm TECHNIQUE: Helical axial images of the head were obtained without IV contrast. Automated exposure con trol was utilized for the study. A dose lowering technique was utilized adhering to the principles o f ALARA. FINDINGS: No acute intracranial hemorrhage, midline shift or mass effect is present. The ventricular system is unremarkable. The basilar cisterns are patent. No extra-axial collections are present. Ther e are no findings to suggest acute dural sinus thrombosis or acute territorial infarct. No significan t calvarial abnormalities are present. Visualized portions of the sinuses and mastoid air cells are c lear. IMPRESSION: No acute intracranial findings. ACT 112: Negative or not required by law. Electronically signed by: Alan Salgado M.D. 03/01/2019 6:48 AM
[2019-03-01 06:51] LABS: Troponin I 0.085 ng/ml (0-0.045)
--- NOTE | 2019-03-01 07:23 | XRay Report ---
XR chest 1V portable HISTORY: Hypertension COMPARISON: None. FINDINGS: There are low lung volumes. No pleural effusions. No pneumothorax. Small left basilar linea r densities likely representing atelectasis or scarring. The lungs are otherwise clear. The heart is mildly enlarged. IMPRESSION: Mild cardiomegaly. ACT 112: Negative or not required by law. Electronically signed by: Willie Bass M.D. 03/01/2019 7:22 AM
[2019-03-01] MEDS: NIFEdipine EXTENDED REL 30 MG TABCR PO SCH (08:20)
[2019-03-01] MEDS: ENOXAPARIN INJ 40 MG/0.4 ML SYR SQ SCH (08:21)
[2019-03-01] MEDS ORDERED: METOPROLOL TARTRATE 25 MG TAB PO SCH (09:00)
[2019-03-01] MEDS: ACETAMINOPHEN 325 MG TAB PO PRN ×2 (14:55→20:46)
--- NOTE | 2019-03-01 15:15 | Hospitalist Progress Note ---
Date of Service March 01, 2019 Assessment & Plan (1) Hypertensive crisis: Uncontrolled hypertension Secondary to medication noncompliance CT Head:No acute intracranial findings. CTA:No thoracic aortic dissection. No acute findings within the chest. Mild cardiomegaly. 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 May need to rule out NEO as outpatient with sleep study Elevated Troponin Likely demand ischemia due to uncontrolled BP ECHO: Mild concentric LVH, left ventricular wall motion is normal, right ventricle systolic function is normal Grossly normal valvular structure and function Currently denies any chest pain, shortness of breath Monitor Hyperlipidemia Started on lipitor Hyperglycemia Hb A1C:5.2 DM ruled out H/O Gout Takes indomethacin as needed DVT Px: Lovenox SQ Code Status Full code Disposition Expect to discharge home when medically stable Subjective Patient is seen and examined at bedside Headache better today Chest pain/discomfort resolved Denies any change in vision, dizziness, SOB, abd pain Offers no other complaints Review of Systems Review of Systems: All systems reviewed & are unremarkable except as noted in HPI & below Physical Exam Physical Exam: Physical Exam: Vitals signs as noted above General Appearance:Obese, no apparent distress Head: normocephalic, Atraumatic Eyes: normal inspection, EOMI Neck: supple, Trachea midline Respiratory/Chest: Normal breath sounds, CTA Cardiovascular: S1, S2, No murmur Abdomen/GI:Soft, Non tender, Bowel sounds present Extremities/Musculoskelatal:normal inspection, no edema Neurologic/Psych:AAOX3, grossly no focal neurological deficits Skin: normal color, warm Results & Data Vital Signs (Past 12 Hours) Vital Signs Temp Pulse Pulse Resp BP BP Pulse Ox 03/01/19 11:30 36.7 C 18 155/92 H 98 03/01/19 08:05 36.5 C 62 18 142/91 H 97 03/01/19 03:30 36.5 C 61 18 168/118 H 98 03/01/19 03:15 64 16 132/90 96 03/01/19 03:01 65 21 142/93 H 96 Laboratory Results Short CBC 02/28/19 03/01/19 Range/Units 23:25 05:50 WBC 8.74 8.84 (4.8-10.8) K/uL Hgb 16.0 15.1 (14.0-18.0) g/dL Hct 46.1 43.6 (42-52) % Plt Count 258 234 (130-400) K/uL BMP 02/28/19 03/01/19 23:25 05:50 Sodium 140 141 Potassium 4.1 3.8 Chloride 108 H 109 H Carbon Dioxide 29 25 BUN 16 15 Creatinine 1.10 0.93 Glucose 128 H 100 H Calcium 8.9 9.3 Cardiac Enzymes 02/28/19 03/01/19 03/01/19 Range/Units 23:25 02:17 05:50 Troponin I 0.088 H* 0.090 H* 0.085 H* (0-0.045) ng/ml Liver Function 02/28/19 Range/Units 23:25 Total Bilirubin 0.5 (0.2-1) mg/dl AST 26 (15-37) U/L ALT 52 (12-78) U/L Alkaline Phosphatase 76 (45-117) U/L Albumin 3.8 (3.4-5.0) gm/dl Urine 03/01/19 Range/Units 01:15 Urine Color Yellow Urine Appearance Clear (Clear) Urine pH 7.5 (4.5-7.5) Ur Specific [place] > 1.045 H (1.000-1.030) Urine Protein Negative (Negative) Urine Glucose (UA) Negative (Negative)
[2019-03-01] MEDS ORDERED: ATORVASTATIN 10 MG TAB PO SCH (21:00)
[2019-03-02 06:40] LABS: BUN Creatinine Ratio 17.6 (10-20); Calcium 9.3 mg/dl (8.5-10.1); Creatinine Clr Calc Pharmacy 130.3 ml/min; Est GFR (African American) 110.4; Est GFR (Non-African American) 95.2; Magnesium 2.1 mg/dl (1.8-2.4); Potassium 3.9 mmol/L (3.5-5.1)
--- NOTE | 2019-03-02 08:14 | Electrocardiogram Report ---
Test Reason : Blood Pressure : / mmHG Vent. Rate : 068 BPM Atrial Rate : 068 BPM P-R Int : 200 ms QRS Dur : 106 ms QT Int : 416 ms P-R-T Axes : 013 -25 007 degrees QTc Int : 442 ms Normal sinus rhythm Incomplete right bundle branch block Moderate voltage criteria for LVH, may be normal variant Borderline ECG When compared with ECG of 28-FEB-2019 23:20, (unconfirmed) QRS axis Shifted left Confirmed by Sean Acevedo ([id number]) on 03/01/2019 5:36:50 PM Referred By: REFERRED SELF Confirmed By:Ry Acevedo
--- NOTE | 2019-03-02 08:14 | Electrocardiogram Report ---
Test Reason : Blood Pressure : / mmHG Vent. Rate : 058 BPM Atrial Rate : 058 BPM P-R Int : 192 ms QRS Dur : 108 ms QT Int : 420 ms P-R-T Axes : 050 088 051 degrees QTc Int : 412 ms Sinus bradycardia Incomplete right bundle branch block Abnormal ECG No previous ECGs available Confirmed by Sean Acevedo ([id number]) on 03/01/2019 5:36:13 PM Referred By: REFERRED SELF Confirmed By:Ry Acevedo
[2019-03-02] MEDS: METOPROLOL TARTRATE 25 MG TAB PO SCH (08:22)
[2019-03-02] MEDS: NIFEdipine EXTENDED REL 30 MG TABCR PO SCH (08:22)
[2019-03-02] MEDS: ENOXAPARIN INJ 40 MG/0.4 ML SYR SQ SCH (08:23)
[2019-03-02] MEDS ORDERED: LOSARTAN POTASSIUM 50 MG TAB PO SCH (09:00)
--- NOTE | 2019-03-02 12:55 | Hospitalist Progress Note ---
Date of Service March 02, 2019 Assessment & Plan (1) Hypertensive crisis: Uncontrolled hypertension Secondary to medication noncompliance CT Head:No acute intracranial findings. CTA:No thoracic aortic dissection. No acute findings within the chest. Mild cardiomegaly. 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 May need to rule out NEO as outpatient with sleep study BP much improved Elevated Troponin Likely demand ischemia due to uncontrolled BP ECHO: Mild concentric LVH, left ventricular wall motion is normal, right ventricle systolic function is normal Grossly normal valvular structure and function Denies any chest pain, shortness of breath Monitor Hyperlipidemia Contiue on Lipitor Hyperglycemia Hb A1C:5.2 DM ruled out H/O Gout Takes indomethacin as needed DVT Px: Lovenox SQ Code Status Full code Disposition Plan to discharge home today Subjective Patient is seen and examined at bedside Doing much better today Headache resolved Denies any change in vision, dizziness, SOB, abd pain, chest pain Offers no other complaints Review of Systems Review of Systems: All systems reviewed & are unremarkable except as noted in HPI & below Physical Exam Physical Exam: Physical Exam: Vitals signs as noted above General Appearance:Obese, no apparent distress Head: normocephalic, Atraumatic Eyes: normal inspection, EOMI Neck: supple, Trachea midline Respiratory/Chest: Normal breath sounds, CTA Cardiovascular: S1, S2, No murmur Abdomen/GI:Soft, Non tender, Bowel sounds present Extremities/Musculoskelatal:normal inspection, no edema Neurologic/Psych:AAOX3, grossly no focal neurological deficits Skin: normal color, warm Results & Data Vital Signs (Past 12 Hours) Vital Signs Temp Pulse Resp BP Pulse Ox 03/02/19 11:09 36.5 C 55 L 18 127/86 97 03/02/19 07:53 36.4 C L 72 18 147/94 H 96 03/02/19 03:41 37 C 69 20 132/79 96 Laboratory Results [facility] 03/02/19 06:00 Sodium 138 Potassium 3.9 Chloride 108 H Carbon Dioxide 27 BUN 17 Creatinine 0.97 Glucose 89 Calcium 9.3
--- NOTE | 2019-03-02 13:01 | Discharge Summary ---
Date of Service March 02, 2019 Admission HPI Per Admitting Provider History obtained from patient, family, and records. Medical history significant for hypertension. Patient and family relocated to [facility] from [place], [place] about 5 months ago for 's new job at [employer]. Patient has yet to establish care with Juanito PCP at [facility]. Last year, patient admitted at a hospital in [place] for uncontrolled blood pressure. Patient required ICU admission. Discharged on 4 blood pressure medications (Metoprolol, Bystolic, Losartan, and Nifedipine.). 3 days ago, patient stopped taking blood pressure medications because he was feeling lazy. Yesterday, patient noted lightheadedness, achy headache symptoms with transient squeezing discomfort of the chest. No shortness of breath, no cough. Patient does not take BP at home. Misplaced BP machine during recent move. No unusual stress at home. No inordinate caffeine, NSAID intake. Patient thinks he might have sleep apnea. No prior sleep studies. SBP noted to be 210s at the highest at the ER. IV hydralazine given at the ER. SBP currently 160s. Patient feeling much better. 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 Admission Exam Per Admitting Provider GENERAL: Slightly uncomfortable, obese, no respiratory distress SKIN: Normal color, warm HEENT: Bespectacled, [place] palpebral conjunctivae, no ptosis, dry buccal mucosa NECK : Supple, short neck, no tenderness CHEST : CTA, no tenderness HEART : RRR, no obvious murmurs ABDOMEN: Some distention, nontender EXTREMITIES : No LE swelling/tenderness, no other conspicuous deformities noted NEUROLOGIC : Coherent, no facial asymmetry, no other gross focality Principal Diagnosis Hypertensive urgency Hyperlipidemia Discharge Data Allergies Allergy/AdvReac Type Severity Reaction Status Date / Time No Known Allergies Allergy Unverified 02/28/19 23:39 Consultations 03/01/19 01:32 ED Decision to Admit Stat 03/01/19 01:33 ED Decision to Admit Stat Procedures Performed CT Head:No acute intracranial findings. CTA:No thoracic aortic dissection. No acute findings within the chest. Mild cardiomegaly. Ordered Studies 02/28/19 23:28 CT head/brain wo con [facility] 03/01/19 00:30 CT angio chest dissec wo/w con [facility] Hospital Course (1) Hypertensive crisis: Uncontrolled hypertension Secondary to medication noncompliance CT Head:No acute intracranial findings. CTA:No thoracic aortic dissection. No acute findings within the chest. Mild cardiomegaly. 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 May need to rule out NEO as outpatient with sleep study BP much improved Elevated Troponin Likely demand ischemia due to uncontrolled BP ECHO: Mild concentric LVH, left ventricular wall motion is normal, right ventricle systolic function is normal Grossly normal valvular structure and function Denies any chest pain, shortness of breath Monitor Hyperlipidemia Contiue on Lipitor Hyperglycemia Hb A1C:5.2 DM ruled out H/O Gout Takes indomethacin as needed DVT Px: Lovenox SQ Code Status Full code Disposition Plan to discharge home today Total Time Total Time Spent Total Time Spent (In Minutes): 28 minutes Total Time Includes: Examination of the Patient, Discharge Planning, Medication Reconciliation, Communication With Other Providers and Other Discharge Plan Discharge Items Patient Disposition: Home - Self-Care Reason For Visit: CP Discharge Diagnosis: Uncontrolled Hypertension Hyperlipidemia Activity: Resume your previous activity Exercise/Sports: Gradually increase as tolerated Non-emergency contact: Primary Care Provider Call non-emergency contact if: you have any medication questions, your symptoms worsen, your pain is not controlled, your pain is worsening, your pain is unusual for you, your pain is concerning for you and you have a fever Follow-up/Referrals: PCP,NO [Primary Care Provider] - Diet: Heart Healthy Addtl Attending Provider Instructions: Follow up with your Primary Care Physician on Mar 05, 2019 at 12:45 PM Check your Blood pressure regularly and exercise regularly as advised. Futher adjustment of your Blood pressure medications as per your primary care physician Seek immediate medical attention if your symptoms reoccur or worsen Pending Studies at Discharge: No Stand-Alone Forms: My [employer], Smoking Cessation Medications and DC Order Prescriptions: New atorvastatin 10 mg Tablet 10 mg PO HS Qty: 30 RF: 1 losartan 100 mg tablet 100 mg PO DAILY Qty: 30 RF: 0 nifedipine 60 mg tablet extended release 60 mg PO DAILY Qty: 30 RF: 0 Continued metoprolol tartrate 25 mg Tablet 25 mg PO BID RF: 0 Discontinued nifedipine 10 mg Capsule 10 mg PO DAILY RF: 0 losartan 25 mg Tablet 25 mg PO DAILY RF: 0 Bystolic 10 mg Tablet 10 mg PO DAILY RF: 0 Discharge Orders: Discharge Order (Routine); Ordered 03/02/19 Ordered By: Jordon Rosario Admission Data Admit Date/Time: 03/01/19 03:05 Attending Provider: Jordon Rosario Admit Provider: Alfonso Swartz Primary Care Provider: PCP,NO Other Providers: Alfonso Swartz Other Interventions: Discharge Summary Assessment (RN) Last Done: 03/02/19 13:04 DC Date/Time DO NOT enter until pt leaves facility: 03/02/19 14:12
--- NOTE | 2019-03-03 07:34 | Electrocardiogram Report ---
Test Reason : Blood Pressure : / mmHG Vent. Rate : 059 BPM Atrial Rate : 059 BPM P-R Int : 200 ms QRS Dur : 106 ms QT Int : 422 ms P-R-T Axes : 025 -17 010 degrees QTc Int : 417 ms Sinus bradycardia Voltage criteria for left ventricular hypertrophy Borderline ECG When compared with ECG of 01-MAR-2019 00:25, No significant change was found Confirmed by Sean Acevedo ([id number]) on 03/03/2019 7:34:10 AM Referred By: REFERRED SELF Confirmed By:Ry Acevedo
== END 2019-03-02 14:12 | disposition home or self-care (01) ==
LOC: 2S 23:09 → ED 23:09 → 2S 03-01 03:20

== ENCOUNTER 2019-12-13 21:02 | Observation (INO) ==
[2019-12-13] MEDS ORDERED: LORazepam 1 MG/2 ML VIAL IV STA (21:29)
[2019-12-13 22:05] LABS: Basophils # (auto) 0.03 K/uL (0-0.2); Basophils % (auto) 0.3 %; Eosinophils # (auto) 0.41 K/uL (0-0.5); Eosinophils % (auto) 3.8 %; Hematocrit (blood only) 48.4 % (42-52); Hemoglobin 16.8 g/dL (14.0-18.0); Immature Granulocytes # (auto) 0.02 K/uL (0.00-0.02); Immature Granulocytes % (auto) 0.2 %; Mean Corpuscular Hemoglobin 31.5 pg (25-34); Mean Corpuscular Hgb Conc 34.7 g/dL (32-36); Mean Corpuscular Volume 90.8 fL (80-100); Mean Platelet Volume 10.6 fL (7.4-10.4); Monocytes % (auto) 4.6 %; Neutrophils # (auto) 7.67 K/uL (1.4-6.5); Neutrophils % (auto) 70.1 %; Platelet Count 295 K/uL (130-400); RDW Coefficient of Variation 12.6 % (11.5-14.5); RDW Standard Deviation 41.6 fL (36.4-46.3); Red Blood Count 5.33 M/uL (4.7-6.1); White Blood Count 10.93 K/uL (4.8-10.8)
[2019-12-13 22:39] LABS: Calcium 10.2 mg/dl (8.5-10.1); Creatinine Clr Calc Pharmacy 95.1 ml/min; Est GFR (African American) 74.8; Est GFR (Non-African American) 64.6; Potassium 3.9 mmol/L (3.5-5.1)
[2019-12-13 22:44] LABS: Troponin I 0.391 ng/ml (0-0.045)
[2019-12-13 22:46] LABS: INR 1.1 (0.9-1.1); Partial Thromboplastin Time 26.8 Seconds (21.0-31.0); Prothrombin Time 11.4 Seconds (9.0-12.0)
--- NOTE | 2019-12-13 23:50 | Emergency Department Note ---
History of Present Illness General Chief complaint: Hypertension Stated complaint: HYPERTENSION 180/100 Time Seen by Provider: 12/13/19 21:12 History of Present Illness Provider complaint: Hypertension headache weakness Onset (ago): day(s) 1 Location: head Radiation: non-radiation Severity: mild Pain Consistency: + constant Maximum Pain Intensity: 2 Current Pain Intensity: 2 Quality: + aching and + dull Relieved By: + none Exacerbated By: + none Associated symptoms: + headaches and + weakness; no chest pain, no naus ea/vomiting and no shortness of breath 44-year-old male with history of hypertension presents emergency department for hypertension and headache. Patient states today he felt headache, and fatigue. He states he took his blood pressure and his systolic blood pressure was greater than 220 so he came to the emergency department. Patient states he is not taking any of his home medications for the last week. Patient states he is supposed to be on atorvastatin, losartan, and metoprolol. He states he is not taking his medications because he does not feel like he needs them and has a soft time remembering to take them. He states he has been feeling increasing amount of stress lately because of his job. Patient and family member at bedside state that this is happened to him in the past and he has needed to be admitted to the hospital. He stated that he needed to be admitted to the hospital once here before and in the past has needed to be admitted to an ICU in [place] due to his blood pressure being out of control. Home Medications Home Medications Medication Instructions Recorded Confirmed Type metoprolol tartrate 25 mg PO BID 03/01/19 12/13/19 History atorvastatin 10 mg PO HS #30 tab 03/02/19 12/13/19 Rx losartan 100 mg PO DAILY #30 tab 03/02/19 12/13/19 Rx nifedipine 60 mg PO DAILY #30 tab 03/02/19 12/13/19 Rx chlorthalidone 25 mg PO DAILY 12/13/19 12/13/19 History Allergies Allergy/AdvReac Type Severity Reaction Status Date / Time No Known Allergies Allergy Verified 12/13/19 22:53 Past Med/Surg History Medical History (Updated 12/14/19 @ 00:01 by Kyle Lang) Elevated troponin High blood pressure HLD (hyperlipidemia) Hypertensive crisis Hypertensive emergency No pertinent family history Surgical History No pertinent past surgical history Social History Smoking Status: Never smoker Hx Alcohol Use: No Hx Substance Use: No Preferred Language: Vietnamese Communication Ability: Effective Beliefs That Will Affect Care: None Current Living Situation: Spouse Feels Safe at Home: Yes Assistive Devices: None Review of Systems A total of 10 systems reviewed and were otherwise negative Physical Exam Vital Signs Vital Signs - 24 hr 12/13/19 21:06 12/13/19 21:18 12/13/19 21:26 Temperature 37.4 C Temperature Source Oral Pulse Rate 80 80 Pulse Rate [Apical] 81 Pulse Rate from SpO2 Sensor 81 Pulse Rhythm Regular Pulse Strength Normal Respiratory Rate 18 22 18 Respiratory Effort / Characteristics Non-Labored Spontaneous Respiratory Depth Normal Respiratory Pattern Regular Blood Pressure 210/131 H 215/136 H Blood Pressure [Left Arm] 215/136 H Blood Pressure Mean 157 146 Blood Pressure Mean [Left Arm] 162 Blood Pressure Position Sitting Pulse Oximetry 95 95 94 Oxygen Delivery Method Room Air Room Air Room Air Sepsis Recent Fever Within 48 Hours No Sepsis New/Unexplained Change in Mental Status N/A Sepsis Action Taken by Nursing No Action Required 12/13/19 21:29 12/13/19 22:00 12/13/19 22:31 Temperature Temperature Source Pulse Rate 78 74 Pulse Rate [Apical] Pulse Rate from SpO2 Sensor 79 76 Pulse Rhythm Pulse Strength Respiratory Rate 13 18 Respiratory Effort / Characteristics Respiratory Depth Respiratory Pattern Blood Pressure 182/114 H 161/118 H Blood Pressure [Left Arm] Blood Pressure Mean 136 129 Blood Pressure Mean [Left Arm] Blood Pressure Position Pulse Oximetry 97 95 Oxygen Delivery Method Room Air Room Air Room Air Sepsis Recent Fever Within 48 Hours Sepsis New/Unexplained Change in Mental Status Sepsis Action Taken by Nursing 12/13/19 23:01 Temperature Temperature Source Pulse Rate 78 Pulse Rate [Apical] Pulse Rate from SpO2 Sensor 83 Pulse Rhythm Pulse Strength Respiratory Rate 14 Respiratory Effort / Characteristics Respiratory Depth Respiratory Pattern Blood Pressure 164/115 H Blood Pressure [Left Arm] Blood Pressure Mean 136 Blood Pressure Mean [Left Arm] Blood Pressure Position Pulse Oximetry 95 Oxygen Delivery Method Room Air Sepsis Recent Fever Within 48 Hours Sepsis New/Unexplained Change in Mental Status Sepsis Action Taken by Nursing Physical Exam GENERAL: He is oriented to person, place, and time. He appears well-developed and well-nourished. He does not appear distressed. HENT: Exam performed. - Head: Normocephalic and atraumatic. - Right Ear: External ear normal. No mastoid tenderness. - Left Ear: External ear normal. No mastoid tenderness. - Mouth/Throat: The oropharynx is clear and moist. No trismus in the jaw. No dental abscesses or uvula swelling. No oropharyngeal exudate or tonsillar abscesses. EYES: Conjunctivae and EOM are normal. Pupils are equal, round, and reactive to light. Right eye exhibits no discharge. Left eye exhibits no discharge. No scleral icterus. NECK: Normal range of motion. Neck supple. No JVD present. No spinous process tenderness present. No carotid bruit present. No rigidity. No tracheal deviation and normal range of motion present. No Brudzinski's sign and no Kernig's sign noted. CV: Normal rate, regular rhythm, normal heart sounds and intact distal pulses. There is no peripheral edema. Palpable radial pulses bue. PULM/CHEST: Effort normal and breath sounds normal. No respiratory distress. No stridor. He has no wheezes. He has no rales. - Chest Wall: He exhibits no tenderness. ABD: The abdomen is soft. Bowel sounds are normal. He has no distension. No mass is present. There is no tenderness. There is no rebound, no guarding, no Block's sign and no tenderness at McBurney's point. Rovsig negative. MUSC/SKEL: Normal range of motion. There is no peripheral edema, tenderness or deformity. LYMPH: No cervical adenopathy. NEURO: He is alert and oriented to person, place, and time. He has normal strength. No cranial nerve deficit or sensory deficit. Coordination and gait normal. GCS eye subscore is 4. GCS verbal subscore is 5. GCS motor subscore is 6. Cerebellar tests wnl. SKIN: Skin is warm and dry. He is not diaphoretic. PSYCH: He has a normal mood and affect. Behavior is normal. Judgment and thought content normal. Course Course 2111: The patient was evaluated in room A3. A complete history and physical exam was performed. Cardiac monitoring: An order was placed for continuous cardiac monitoring. The monitor shows a rate of 80 with sinus rhythm EKG showed sinus rhythm with a rate of 76. SD QRS and QTc intervals within normal limits. Mild ST elevation in lead V2 and V3. No reciprocal changes. Patient denies any chest pain at this time. EMR reviewed. Patient was admitted to the hospital in February 2019 for similar episode where he stopped taking his blood pressure medication and then had to be admitted for hypertensive crisis. His EKG done today showed no significant change from his EKG done in February 2019. Patient's troponin in February range between 0.088 and 0.09. 2258: Vital signs stable. Patient was given Ativan 1 mg IV push due to his having increased stress. After patient received the Ativan 1 mg IV push, the patient's blood pressure improved. Patient states his headache has also improved. Labs show a troponin of 0.391, creatinine within normal limits. Troponin is significantly higher than previous admission. Given the patient's elevated troponin and blood pressure elevation, he will be admitted to the [facility] Hospitalist service. Dr. Mckenna. Administered Medications Discontinued Medications Lorazepam (Ativan) 1 mg in 2 mls @ 2 mls/min IV NOW STA Stop: 12/13/19 21:30 Last Admin: 12/13/19 21:52 Dose: 2 mls/min Documented by: [id number] Medical Decision Making Laboratory Data Result diagrams: 12/13/19 21:43 12/13/19 21:43 Lab Results 12/13/19 12/13/19 12/13/19 Range/Units 21:43 21:43 21:43 WBC 10.93 H (4.8-10.8) K/uL RBC 5.33 (4.7-6.1) M/uL Hgb 16.8 (14.0-18.0) g/dL Hct 48.4 (42-52) % MCV 90.8 (80-100) fL MCH 31.5 (25-34) pg MCHC 34.7 (32-36) g/dL RDW Std Deviation 41.6 (36.4-46.3) fL RDW Coeff of Shabana 12.6 (11.5-14.5) % Plt Count 295 (130-400) K/uL MPV 10.6 H (7.4-10.4) fL Immature Gran % (Auto) 0.2 % Neut % (Auto) 70.1 % Lymph % (Auto) 21.0 % [place] % (Auto) 4.6 % Eos % (Auto) 3.8 % Baso % (Auto) 0.3 % Neut # (Auto) 7.67 H (1.4-6.5) K/uL Lymph # (Auto) 2.30 (1.2-3.4) K/uL [place] # (Auto) 0.50 (0.11-0.59) K/uL Eos # (Auto) 0.41 (0-0.5) K/uL Baso # (Auto) 0.03 (0-0.2) K/uL Immature Gran # (Auto) 0.02 (0.00-0.02) K/uL PT 11.4 (9.0-12.0) Seconds INR 1.1 (0.9-1.1) APTT 26.8 (21.0-31.0) Seconds PTT Ratio 1.0 Sodium 139 (136-145) mmol/L Potassium 3.9 (3.5-5.1) mmol/L Chloride 104 (98-107) mmol/L Carbon Dioxide 30 (21-32) mmol/L Anion Gap 5.0 (3-11) BUN 16 (7-18) mg/dl Creatinine 1.33 (0.6-1.4) mg/dl Est Cr Clr Drug Dosing 95.1 ml/min Est GFR ( Amer) 74.8 Est GFR (Non-Af Amer) 64.6 BUN/Creatinine Ratio 12.0 (10-20) Glucose 107 H (70-99) mg/dl Calcium 10.2 H (8.5-10.1) mg/dl Troponin I 0.391 H* (0-0.045) ng/ml Lipase 129 (73-393) U/L Specimen Hemolysis Imaging Data My Impression: Chest x-ray negative. Airway clear. No pneumothorax. No consolidation. No cardiomegaly or cephalization.. No free air under the windy phragm. No fractures of the skeletal structures. Radiologist's Impression: PreliminaryFindingsOnly See Final Report For Complete Findings CT HEAD: Comparison 02/28/2019. No acute intracranial hemorrhage, edema or mass. No extra-axial fluid collection. No calvarial fracture. Obits, paranasal sinuses and mastoids are unremarkable. Radiologist: Tony Sun M.D. Study ready at 22:14 and initial results transmitted at 22:27 ECG Data Additional Comments: EKG #1 at 2112: Sinus rhythm with a rate of 73. SD QRS and QTc intervals within normal limits. ST elevation in leads V2 and V3. No reciprocal changes. When compared to EKG done in February 2019 there is no significant change. EKG #2 at 2127: Sinus rhythm with a rate of 76. SD QRS and QTc intervals are within normal limits. ST elevation in leads V2 and V3. No reciprocal changes. When compared to EKG done earlier today and EKGs done in February 2019 there is no significant change. [facility] Narrative 2111: The patient was evaluated in room A3. A complete history and physical exam was performed. Cardiac monitoring: An order was placed for continuous cardiac monitoring. The monitor shows a rate of 80 with sinus rhythm EKG showed sinus rhythm with a rate of 76. SD QRS and QTc intervals within normal limits. Mild ST elevation in lead V2 and V3. No reciprocal changes. Patient denies any chest pain at this time. EMR reviewed. Patient was admitted to the hospital in February 2019 for similar episode where he stopped taking his blood pressure medication and then had to be admitted for hypertensive crisis. His EKG done today showed no significant change from his EKG done in February 2019. Patient's troponin in February range between 0.088 and 0.09. 2258: Vital signs stable. Patient was given Ativan 1 mg IV push due to his having increased stress. After patient received the Ativan 1 mg IV push, the patient's blood pressure improved. Patient states his headache has also improved. Labs show a troponin of 0.391, creatinine within normal limits. Troponin is significantly higher than previous admission. Given the patient's elevated troponin and blood pressure elevation, he will be admitted to the [facility] Hospitalist service. Dr. Mckenna. Impression & Plan Hypertensive emergency, Elevated troponin Discharge Plan Visit Data Chief Complaint: Hypertension Stated Complaint: HYPERTENSION 180/100 ED Provider: Kyle Lang Discharge Problem: Hypertensive emergency, Elevated troponin Patient Disposition: Admitted As Inpatient Forms Stand Alone Forms: [facility], Virtual Emergency Department, Important Visit Information Prescriptions Prescriptions: No Action metoprolol tartrate 25 mg Tablet 25 mg PO BID RF: 0 atorvastatin 10 mg Tablet 10 mg PO HS Qty: 30 RF: 1 losartan 100 mg tablet 100 mg PO DAILY Qty: 30 RF: 0 nifedipine 60 mg tablet extended release 60 mg PO DAILY Qty: 30 RF: 0 chlorthalidone 25 mg tablet 25 mg PO DAILY RF: 0 Referrals Referrals: Grzegorz Martinez DO [Primary Care Provider] -
--- NOTE | 2019-12-14 02:02 | History and Physical Report ---
DATE OF ADMISSION: 12/14/2019 CHIEF COMPLAINT: Hypertensive urgency. HISTORY OF PRESENT ILLNESS: This is a 44-year-old male with past medical history significant for hypertension, hyperlipidemia, morbid obesity, sleep apnea, noncompliant with CPAP, presents with headache and some crampy feeling in the legs and blood pressure found to be in 210/131. The patient says he is on 4 different kind of blood pressure medications, but he says he just takes them on and off, main thing is he forgets to take them. He was also diagnosed with sleep apnea, supposed to be on CPAP, but he says since he is claustrophobic not using CPAP machine. Denies any chest pain, no shortness of breath, no blurred vision, no earache, no runny nose, no sore throat, no cough, no fever, no chills, no nausea, no abdominal pain. Normal bowel and bladder movements. No swelling in the legs, no rash. Currently resting comfortable and hemodynamically stable. ALLERGIES: LATEX. PAST MEDICAL HISTORY: As mentioned above. PAST SURGICAL HISTORY: None. MEDICATIONS: The patient is on atorvastatin 10 mg p.o. daily, chlorthalidone 25 mg p.o. daily, losartan 100 mg p.o. daily, metoprolol tartrate 25 mg p.o. b.i.d., nifedipine 60 mg p.o. daily. FAMILY HISTORY: No known problems of father or mother as per records. SOCIAL HISTORY: . No smoking, no alcohol, no drug use. REVIEW OF SYMPTOMS: As per HPI. Rest of review of symptoms negative. PHYSICAL EXAMINATION: GENERAL: The patient is morbidly obese, not in acute distress. VITAL SIGNS: Temperature 37.4, pulse 76, respiratory rate 21, blood pressure was 210/131 when he came in, currently 165/108, oxygen 98% room air. HEENT: Pupils equal, round, reactive to light. Oral mucosa moist. NECK: No JVD, no neck masses. CARDIOVASCULAR: S1, S2 heard, regular rate and rhythm, no murmur, no gallop. RESPIRATORY SYSTEM: Normal AP diameter. No accessory muscle use. No wheezing, no crackles. ABDOMEN: Soft, bowel sounds present, nontender. No distention. CENTRAL NERVOUS SYSTEM: Cranial nerves II-XII grossly intact. Nonfocal. EXTREMITIES: No edema, no erythema. LABORATORY DATA: WBC 10.9, hemoglobin 16.8, hematocrit 48.4, platelets 295. PT 11.4, INR 1.1, APTT 26.8. Sodium 139, potassium 3.9, chloride 104, bicarbonate 30, BUN 16, creatinine 1.33, serum glucose 107, calcium 10.2. Troponin I 0.39. Lipase 129. Chest x-ray, no acute findings seen. IMAGING: CT of the head, preliminary report, no acute intracranial hemorrhage, edema or mass. No extraaxial fluid collection. No calvarial fracture is seen. EKG: Normal sinus rhythm, rate of 73, left axis deviation, incomplete right bundle branch block, some J-point elevation in V2 leads, no significant change from previous EKG. ASSESSMENT AND PLAN: This is a 44-year-old male who presents with headache and lower extremity cramps and found to be in hypertensive urgency. 1. Hypertensive urgency, noncompliant with his medications, noncompliant with CPAP for sleep apnea. He says he misses the medications because he forgets them, currently received Ativan and his blood pressure has improved. Will continue his home medication of chlorthalidone, losartan, metoprolol, nifedipine and place him on IV labetalol p.r.n. We will monitor in tele floor and consult cardiology in a.m. for adjustment of his medications. 2. Mild elevation of troponin. He has chronic elevated troponin. His EKG no new changes. Currently, patient is asymptomatic, no chest pain or shortness of breath. We will trend his enzymes, most likely could be demand ischemia from his hypertensive urgency. We will follow echocardiogram. Monitor in tele floor. 3. Hyperlipidemia. Continue statin. 4. Obstructive sleep apnea, noncompliant with CPAP. Needs counseling. 5. Obesity, needs counseling. 6. Deep venous thrombosis prophylaxis, sequential compression devices. DISPOSITION: Closely monitor in tele floor. Expect to discharge home and follow with his family doctor. Level 1 full code. MTDD
[2019-12-14] MEDS ORDERED: LABETALOL HCL IV 5 MG/ML 20ML IV PRN (02:09)
[2019-12-14] MEDS ORDERED: ONDANSETRON INJ 2 MG/ML 2 ML VIAL IV PRN (02:09)
[2019-12-14] MEDS ORDERED: NITROGLYCERIN SL 0.4 MG/TAB TAB SL PRN (02:09)
[2019-12-14] MEDS ORDERED: ACETAMINOPHEN 325 MG TAB PO PRN (02:09)
[2019-12-14 04:56] LABS: Basophils # (auto) 0.03 K/uL (0-0.2); Basophils % (auto) 0.3 %; Eosinophils # (auto) 0.49 K/uL (0-0.5); Eosinophils % (auto) 4.6 %; Hematocrit (blood only) 45.5 % (42-52); Hemoglobin 15.6 g/dL (14.0-18.0); Immature Granulocytes # (auto) 0.03 K/uL (0.00-0.02); Immature Granulocytes % (auto) 0.3 %; Lymphocytes % (auto) 23.4 %; Mean Corpuscular Hemoglobin 31.1 pg (25-34); Mean Corpuscular Hgb Conc 34.3 g/dL (32-36); Mean Corpuscular Volume 90.8 fL (80-100); Mean Platelet Volume 10.6 fL (7.4-10.4); Monocytes # (auto) 0.69 K/uL (0.11-0.59); Monocytes % (auto) 6.5 %; Neutrophils # (auto) 6.94 K/uL (1.4-6.5); Neutrophils % (auto) 64.9 %; Platelet Count 239 K/uL (130-400); RDW Coefficient of Variation 12.6 % (11.5-14.5); RDW Standard Deviation 41.5 fL (36.4-46.3); Red Blood Count 5.01 M/uL (4.7-6.1); White Blood Count 10.68 K/uL (4.8-10.8)
[2019-12-14 05:22] LABS: BUN Creatinine Ratio 15.1 (10-20); Calcium 9.3 mg/dl (8.5-10.1); Creatinine Clr Calc Pharmacy 117.4 ml/min; Est GFR (African American) 96.2; Magnesium 2.3 mg/dl (1.8-2.4); Potassium 3.7 mmol/L (3.5-5.1)
[2019-12-14 05:55] LABS: Troponin I 0.339 ng/ml (0-0.045)
--- NOTE | 2019-12-14 06:36 | XRay Report ---
XR chest 1V portable HISTORY: 44 years-old Male Chest Pain acute atypical chest pain COMPARISON: Chest radiograph 02/28/2019 TECHNIQUE: Portable AP view of the chest FINDINGS: Unchanged prominence of the cardiac silhouette. No pneumothorax, pleural effusion, airspace consolida tion or overt pulmonary edema. Minimal linear subsegmental scarring/atelectasis of the left lung base , unchanged. The bones of the chest appear grossly intact. IMPRESSION: No acute process. ACT 112: Negative or not required by law. The above report was generated using voice recognition software. It may contain grammatical, syntax o r spelling errors. Electronically signed by: Abdulkadir Bronson M.D. 12/14/2019 6:35 AM
--- NOTE | 2019-12-14 06:58 | CT Scan Report ---
CT OF THE HEAD WITHOUT CONTRAST CLINICAL HISTORY: Headache. Hypertension. COMPARISON STUDY: Head CT February 28, 2019. CT DOSE: 614.27 mGy.cm TECHNIQUE: Helical axial images of the head were obtained without IV contrast. Automated exposure con trol was utilized for the study. A dose lowering technique was utilized adhering to the principles o f ALARA. FINDINGS: No acute intracranial hemorrhage, midline shift or mass effect is present. The ventricular system is unremarkable. The basilar cisterns are patent. No extra-axial collections are present. Ther e are no findings to suggest acute dural sinus thrombosis or acute territorial infarct. No significan t calvarial abnormalities are present. Visualized portions of the sinuses and mastoid air cells are c lear. IMPRESSION: No acute intracranial findings. ACT 112: Negative or not required by law. Electronically signed by: Alan Salgado M.D. 12/14/2019 6:57 AM
[2019-12-14] MEDS: NIFEdipine EXTENDED REL 30 MG TABCR PO SCH ×2 (08:05→09:59)
[2019-12-14] MEDS: CHLORTHALIDONE 25 MG TAB PO SCH ×2 (08:06→09:59)
[2019-12-14] MEDS ORDERED: LOSARTAN POTASSIUM 50 MG TAB PO SCH (09:00)
[2019-12-14] MEDS ORDERED: METOPROLOL TARTRATE 25 MG TAB PO SCH (09:00)
--- NOTE | 2019-12-14 10:29 | Electrocardiogram Report ---
Test Reason : Blood Pressure : / mmHG Vent. Rate : 073 BPM Atrial Rate : 073 BPM P-R Int : 188 ms QRS Dur : 106 ms QT Int : 382 ms P-R-T Axes : 002 -37 017 degrees QTc Int : 420 ms Normal sinus rhythm Left axis deviation Incomplete right bundle branch block Moderate voltage criteria for LVH, may be normal variant Abnormal ECG When compared with ECG of 02-MAR-2019 06:55, No significant change Confirmed by Geraldo Bernstein ([id number]) on 12/14/2019 10:29:11 AM Referred By: REFERRED SELF Confirmed By:Geraldo Bernstein
--- NOTE | 2019-12-14 10:31 | Electrocardiogram Report ---
Test Reason : Blood Pressure : / mmHG Vent. Rate : 076 BPM Atrial Rate : 076 BPM P-R Int : 196 ms QRS Dur : 106 ms QT Int : 388 ms P-R-T Axes : 014 -37 028 degrees QTc Int : 436 ms Normal sinus rhythm Left axis deviation Incomplete right bundle branch block Moderate voltage criteria for LVH, may be normal variant Abnormal ECG When compared with ECG of 13-DEC-2019 21:13, (unconfirmed) No significant change was found Confirmed by Geraldo Bernstein ([id number]) on 12/14/2019 10:31:45 AM Referred By: REFERRED SELF Confirmed By:Geraldo Bernstein
--- NOTE | 2019-12-14 14:54 | Hospitalist Progress Note ---
Date of Service December 14, 2019 Assessment & Plan (1) Hypertensive crisis: Has history of hypertension and has been on 4 different kinds of medications to control blood pressure He has not been taking his blood pressure medications for the last 1 month due to stressful situation with work He complained to have headache on admission and his blood pressure is very high at 220/131 Blood pressure seems to be improving with current medications Plan to continue all medications except chlorthalidone due to attack of gout with this medicine Mildly increased troponin Likely secondary to demand ischemia Serial troponins have been negative Echo of the heart: Moderate concentric LVH without wall motion abnormalities, LV systolic function is normal with EF 60 to 65%, diastolic dysfunction grade 2 and there is no significant valvular disease Appreciate cardiology input and recommendation (2) NEO (obstructive sleep apnea): Cannot tolerate CPAP is not a candidate for surgery Advised to lose weight (3) HLD (hyperlipidemia): Continue current medication DVT prophylaxis SDs for now Will likely be discharged this afternoon Admission and Anticipated Discharge Date Admission Date: December 14, 2019 Subjective 12/14/2019 The patient was seen and examined in telemetry unit He has been going through a stressful situation and has been missing his blood pressure medications a lot Remains free of any symptoms as of this month His blood pressure still remains high Review of Systems Review of Systems: All systems reviewed and are unremarkable except as noted below Cardiovascular: no chest pain and no palpitations Neurologic: no tremor(s) and no headache(s) Physical Exam Physical Exam: Lying in bed comfortably Constitutional: well developed, well nourished and + obese; no acute distress and not ill appearing Eyes: PERRL, conjunctivae normal, anicteric sclerae ENMT: external ear and nose normal, oropharynx normal Neck: trachea midline, no thyromegaly Respiratory: normal respiratory effort; no respiratory distress Auscultation: lungs clear to auscultation bilaterally Cardiovascular: Rate/Rhythm: regular rate and regular rhythm Heart Sounds: no murmur Gastrointestinal (Abdomen): Inspection/Auscultation: abdomen normal to inspection; abdomen not distended Percussion/Palpation: abdomen soft; abdomen nontender Musculoskeletal: No acute arthritis in any joint Neurologic: moves all extremities; no focal motor deficits Psychiatric: A+Ox3, euthymic affect Lymphatic: no cervical or axillary lymphadenopathy Results & Data Results & Data ([facility]) Vital Signs (Past 12 Hours) Vital Signs Temp Pulse Pulse Resp BP BP Pulse Ox 12/14/19 11:04 36.6 C 66 20 166/106 H 162/105 H 97 12/14/19 08:00 36.6 C 63 67 19 163/104 H 95 12/14/19 04:55 155/96 H 12/14/19 03:48 36.5 C 65 18 166/108 H 174/94 H 98 Laboratory Results Short CBC 12/13/19 12/14/19 Range/Units 21:43 04:30 WBC 10.93 H 10.68 (4.8-10.8) K/uL Hgb 16.8 15.6 (14.0-18.0) g/dL Hct 48.4 45.5 (42-52) % Plt Count 295 239 (130-400) K/uL BMP 12/13/19 12/14/19 21:43 04:30 Sodium 139 140 Potassium 3.9 3.7 Chloride 104 105 Carbon Dioxide 30 30 BUN 16 16 Creatinine 1.33 1.08 Glucose 107 H 91 Calcium 10.2 H 9.3 Cardiac Enzymes 12/13/19 12/14/19 12/14/19 Range/Units 21:43 04:30 10:48 Troponin I 0.391 H* 0.339 H* 0.312 H* (0-0.045) ng/ml Medications Administered Current Inpatient Medications Acetaminophen (Acetaminophen 325 Mg Tab) 650 mg PO Q4H PRN PRN Reason: Pain or Fever Stop: 01/13/20 02:08 Last Admin: 12/14/19 04:19 Dose: 650 mg Documented by: Atorvastatin Calcium (Atorvastatin 10 Mg Tab) 10 mg PO HS [facility] Stop: 01/13/20 20:59 Chlorthalidone (Chlorthalidone 25 Mg Tab) 25 mg PO DAILY [facility] Stop: 01/13/20 08:59 Last Admin: 12/14/19 09:59 Dose: Not Given Documented by: Labetalol HCl (Labetalol Hcl Iv 5 Mg/Ml 20ml) 10 mg IV Q4H PRN PRN Reason: Hypertension Stop: 01/13/20 02:08 Last Admin: 12/14/19 04:12 Dose: 10 mg Documented by: Losartan Potassium (Losartan Potassium 50 Mg Tab) 100 mg PO DAILY [facility] Stop: 01/13/20 08:59 Last Admin: 12/14/19 08:06 Dose: 100 mg Documented by: Metoprolol Tartrate (Metoprolol Tartrate 25 Mg Tab) 25 mg PO BID [facility] Stop: 01/13/20 08:59 Last Admin: 12/14/19 08:05 Dose: 25 mg Documented by: Nifedipine (Nifedipine Extended Rel 30 Mg Tabcr) 60 mg PO DAILY [facility] Stop: 01/13/20 08:59 Last Admin: 12/14/19 09:59 Dose: Not Given Documented by: Nitroglycerin (Nitroglycerin Sl 0.4 Mg/Tab Tab) 0.4 mg SL UD PRN PRN Reason: Chest Pain Stop: 01/13/20 02:08 Ondansetron HCl (Ondansetron Inj 2 Mg/Ml 2 Ml Vial) 4 mg IV Q6H PRN PRN Reason: Nausea Stop: 01/13/20 02:08
--- NOTE | 2019-12-14 15:47 | Cardiology Consultation ---
Date of Consultation December 14, 2019 Assessment & Plan (1) Hypertensive emergency: Patient presented with headache and severe hypertension with presenting blood pressure of 210/131. CT of the brain revealed no acute intracranial findings. EKG revealed findings of chronic left ventricular hypertrophy and right bundle branch block unchanged compared to prior. A minimal, flat elevation in serial troponin I measurements noted without anginal symptoms. In addition to receiving his home medications, he received a dose of IV labetalol at just after 4 this morning which he responded well to. At the time of my initial assessment this morning his blood pressure was much improved into the systolic range of 150s to 160s, but it does remain above goal. He states nonadherence to medications for about a month. He has been placed on his prior to hospital treatment with losartan 100 mg daily , nifedipine 60 mg daily, chlorthalidone 25 mg daily, and metoprolol tartrate 25 mg twice daily. At this time, I recommend transitioning him from metoprolol to carvedilol 6.25 mg twice daily which I think will be better from a blood pressure standpoint. History of Present Illness Attending Physician: Lalit Amaya MD History of Present Illness Michele Rojo is a 44-year-old male seen in cardiology consultation due to findings of hypertensive urgency and mild troponin elevation. Patient states he presented to the hospital due to headache, and a pain in his legs. He denies chest discomfort or shortness of breath. He has a longstanding history of hypertension for which he is on 4 medications as an outpatient. He does not follow with cardiology as an outpatient. 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 He has also not been compliant with his positive pressure ventilation related to his history of sleep apnea. Allergies Allergy/AdvReac Type Severity Reaction Status Date / Time No Known Allergies Allergy Verified 12/13/19 22:53 Home Medications Home Medications Medication Instructions Recorded Confirmed Type metoprolol tartrate 25 mg PO BID 03/01/19 12/13/19 History atorvastatin 10 mg PO HS #30 tab 03/02/19 12/13/19 Rx losartan 100 mg PO DAILY #30 tab 03/02/19 12/13/19 Rx nifedipine 60 mg PO DAILY #30 tab 03/02/19 12/13/19 Rx chlorthalidone 25 mg PO DAILY 12/13/19 12/13/19 History Patient History Medical History (Updated 12/14/19 @ 14:49 by Lalit Aamya MD) Elevated troponin High blood pressure HLD (hyperlipidemia) Hypertensive crisis Hypertensive emergency No pertinent family history Surgical History No pertinent past surgical history Social History Smoking Status: Never smoker Second Hand Exposure: No; Do You Dip or Chew Tobacco: No; Hx Alcohol Use: No Hx Substance Use: No Preferred Language: Mohawk Communication Ability: Effective Marketing Development Representative Required: No Beliefs That Will Affect Care: Mormon Mormon Beliefs: Christianity - no pork Current Living Situation: Spouse Other Information That Helps Us Care for You: No Feels Safe at Home: Yes Safety Concerns: Feels Safe At This Time Assistive Devices: None Review of Systems Review of Systems: All systems reviewed & are unremarkable except as noted in HPI & below Physical Exam Physical Exam: Temp Pulse Resp BP Pulse Ox 36.6 C 66 20 166/106 H 97 12/14/19 11:04 12/14/19 11:04 12/14/19 11:04 12/14/19 11:04 12/14/19 11:04 Constitutional: WD/WN, vitals as above Respiratory: normal respiratory effort, lungs clear to auscultation Cardiovascular: RRR, no murmur, no edema Gastrointestinal (Abdomen): normal bowel sounds, soft, nontender, no hepatosplenomegaly Neurologic: PERRL, EOMI, accommodation nl, no face palsy, no dysarthria Results & Data ([facility]) Vital Signs (Past 12 Hours) Vital Signs Temp Pulse Pulse Resp BP BP Pulse Ox 12/14/19 11:04 36.6 C 66 20 166/106 H 162/105 H 97 12/14/19 08:00 36.6 C 63 67 19 163/104 H 95 12/14/19 04:55 155/96 H 12/14/19 03:48 36.5 C 65 18 166/108 H 174/94 H 98 Laboratory Results Cardiac Enzymes 12/13/19 12/14/19 12/14/19 Range/Units 21:43 04:30 10:48 Troponin I 0.391 H* 0.339 H* 0.312 H* (0-0.045) ng/ml Coagulation 12/13/19 Range/Units 21:43 PT 11.4 (9.0-12.0) Seconds APTT 26.8 (21.0-31.0) Seconds CBC 12/13/19 12/14/19 Range/Units 21:43 04:30 WBC 10.93 H 10.68 (4.8-10.8) K/uL RBC 5.33 5.01 (4.7-6.1) M/uL Hgb 16.8 15.6 (14.0-18.0) g/dL Hct 48.4 45.5 (42-52) % Plt Count 295 239 (130-400) K/uL Neut # (Auto) 7.67 H 6.94 H (1.4-6.5) K/uL Lymph # (Auto) 2.30 2.50 (1.2-3.4) K/uL Fleming # (Auto) 0.50 0.69 H (0.11-0.59) K/uL Eos # (Auto) 0.41 0.49 (0-0.5) K/uL Baso # (Auto) 0.03 0.03 (0-0.2) K/uL Comprehensive Metabolic Panel 12/13/19 12/14/19 Range/Units 21:43 04:30 Sodium 139 140 (136-145) mmol/L Potassium 3.9 3.7 (3.5-5.1) mmol/L Chloride 104 105 (98-107) mmol/L Carbon Dioxide 30 30 (21-32) mmol/L BUN 16 16 (7-18) mg/dl Creatinine 1.33 1.08 (0.6-1.4) mg/dl Glucose 107 H 91 (70-99) mg/dl Calcium 10.2 H 9.3 (8.5-10.1) mg/dl Intake and Output 12/14/19 12/14/19 12/14/19 06:59 14:59 22:59 Intake Total 395 / 395 Balance 395 / 395 Intake: Oral 395 / 395 Other: Other Intake Source NPO Weight 128.3 kg Weight Measurement Method Standing Scale Diagnostic Findings EKG tracings performed 12/13/2019 revealed sinus rhythm at 76 bpm with incomplete right bundle branch block, voltage criteria for LVH, J-point elevation in lead V2 which is chronic. Echocardiogram revealed moderate concentric left ventricular hypertrophy with no regional wall motion abnormalities LVEF 60 to 65%, grade 2 diastolic dysfunction, no significant valvular heart disease.
[2019-12-14] MEDS ORDERED: carvediloL 6.25 MG TAB PO ONE (17:00)
[2019-12-14] MEDS ORDERED: ATORVASTATIN 10 MG TAB PO SCH (21:00)
--- NOTE | 2019-12-15 08:33 | Discharge Summary ---
Date of Service December 15, 2019 Admission HPI Per Admitting Provider DICTATED BY: Josiah Mckenna MD DATE OF ADMISSION: 12/14/2019 CHIEF COMPLAINT: Hypertensive urgency. HISTORY OF PRESENT ILLNESS: This is a 44-year-old male with past medical history significant for hypertension, hyperlipidemia, morbid obesity, sleep apnea, noncompliant with CPAP, presents with headache and some crampy feeling in the legs and blood pressure found to be in 210/131. The patient says he is on 4 different kind of blood pressure medications, but he says he just takes them on and off, main thing is he forgets to take them. He was also diagnosed with sleep apnea, supposed to be on CPAP, but he says since he is claustrophobic not using CPAP machine. Denies any chest pain, no shortness of breath, no blurred vision, no earache, no runny nose, no sore throat, no cough, no fever, no chills, no nausea, no abdominal pain. Normal bowel and bladder movements. No swelling in the legs, no rash. Currently resting comfortable and hemodynamically stable. Admission Exam Per Admitting Provider GENERAL: The patient is morbidly obese, not in acute distress. VITAL SIGNS: Temperature 37.4, pulse 76, respiratory rate 21, blood pressure was 210/131 when he came in, currently 165/108, oxygen 98% room air. HEENT: Pupils equal, round, reactive to light. Oral mucosa moist. NECK: No JVD, no neck masses. CARDIOVASCULAR: S1, S2 heard, regular rate and rhythm, no murmur, no gallop. RESPIRATORY SYSTEM: Normal AP diameter. No accessory muscle use. No wheezing, no crackles. ABDOMEN: Soft, bowel sounds present, nontender. No distention. CENTRAL NERVOUS SYSTEM: Cranial nerves II-XII grossly intact. Nonfocal. EXTREMITIES: No edema, no erythema. Principal Diagnosis Hypertensive crisis, obstructive sleep apnea with intolerance to CPAP, hyperlipidemia Discharge Exam Constitutional well developed, well nourished and + obese; no acute distress and not ill appearing Eyes PERRL, conjunctivae normal, anicteric sclerae ENMT external ear and nose normal, oropharynx normal Neck trachea midline, no thyromegaly Respiratory normal respiratory effort; no respiratory distress Auscultation: lungs clear to auscultation bilaterally Cardiovascular Rate/Rhythm: regular rate and regular rhythm Heart Sounds: no murmur Gastrointestinal (Abdomen) Inspection/Auscultation: abdomen normal to inspection; abdomen not distended Percussion/Palpation: abdomen soft; abdomen nontender Neurologic moves all extremities; no focal motor deficits Psychiatric A+Ox3, euthymic affect Lymphatic no cervical or axillary lymphadenopathy Discharge Data Allergies Allergy/AdvReac Type Severity Reaction Status Date / Time No Known Allergies Allergy Verified 12/13/19 22:53 Consultations 12/13/19 22:58 ED Decision to Admit Stat 12/14/19 08:00 Consult Cardiology Routine Ordered Studies 12/13/19 21:30 CT head/brain wo con Urgent Hospital Course (1) Hypertensive crisis: Has history of hypertension and has been on 4 different kinds of medications to control blood pressure He has not been taking his blood pressure medications for the last 1 month due to stressful situation with work He complained to have headache on admission and his blood pressure is very high at 220/131 Blood pressure seems to be improving with current medications Plan to continue all medications except chlorthalidone due to attack of gout with this medicine Mildly increased troponin Likely secondary to demand ischemia Serial troponins have been negative Echo of the heart: Moderate concentric LVH without wall motion abnormalities, LV systolic function is normal with EF 60 to 65%, diastolic dysfunction grade 2 and there is no significant valvular disease Appreciate cardiology input and recommendation (2) NEO (obstructive sleep apnea): Cannot tolerate CPAP is not a candidate for surgery Advised to lose weight (3) HLD (hyperlipidemia): Continue current medication DVT prophylaxis SDs for now Will likely be discharged this afternoon Total Time Total Time Spent Total Time Spent (In Minutes): 35 minutes Total Time Includes: Examination of the Patient, Discharge Planning, Medication Reconciliation and Communication With Other Providers Discharge Plan Discharge Items Patient Disposition: Home - Self-Care Reason For Visit: HYPERTENSION Discharge Diagnosis: Hypertensive crisis, obstructive sleep apnea with intolerance to CPAP, hyperlipidemia Condition on Discharge: Good Activity: Resume your previous activity Non-emergency contact: Primary Care Provider Call non-emergency contact if: you have any medication questions and your symptoms worsen Follow-up/Referrals: Grzegorz Martinez DO [Primary Care Provider] - (Date & Time 12/18/2019 11:20 AM Provider Grzegorz Martinez DO Department [facility] ) Diet: Heart Healthy and Low Sodium (2gm) Addtl Attending Provider Instructions: Please take your medications regularly Please continue to work on reducing weight Pending Studies at Discharge: No Stand-Alone Forms: [facility], Smoking Cessation Medications and DC Order Prescriptions: New carvedilol 6.25 mg Tablet 6.25 mg PO BID Qty: 60 RF: 0 Continued atorvastatin 10 mg Tablet 10 mg PO HS Qty: 30 RF: 1 losartan 100 mg tablet 100 mg PO DAILY Qty: 30 RF: 0 nifedipine 60 mg tablet extended release 60 mg PO DAILY Qty: 30 RF: 0 Discontinued metoprolol tartrate 25 mg Tablet 25 mg PO BID RF: 0 chlorthalidone 25 mg tablet 25 mg PO DAILY RF: 0 Discharge Orders: Discharge Order (Routine); Ordered 12/14/19 Ordered By: Lalit Amaya Admission Data Admit Date/Time: 12/14/19 00:05 Attending Provider: Lalit Amaya Admit Provider: Josiah Mckenna Primary Care Provider: Grzegorz Martinez Other Providers: Josiah Mckenna ; Demarcus Culp Other Interventions: Discharge Summary Assessment (RN) Last Done: 12/14/19 16:52
[2019-12-15] MEDS ORDERED: carvediloL 6.25 MG TAB PO SCH (09:00)
== END 2019-12-14 17:27 | disposition home or self-care (01) ==
LOC: ED 21:02 → INTOOBSV 12-14 00:05 → 2S 12-14 00:05

== ENCOUNTER 2021-12-22 13:25 | Observation (INO) ==
[2021-12-22 14:04] LABS: Basophils # (auto) 0.05 K/uL (0-0.2); Basophils % (auto) 0.6 %; Eosinophils # (auto) 0.37 K/uL (0-0.50); Eosinophils % (auto) 4.5 %; Hematocrit (blood only) 49.2 % (40.1-51.0); Hemoglobin 17.3 g/dl (14.0-18.0); Immature Granulocytes # (auto) 0.03 K/uL (0.00-0.02); Immature Granulocytes % (auto) 0.4 %; Lymphocytes % (auto) 19.4 %; Mean Corpuscular Hemoglobin 32.1 pg (25.0-34.0); Mean Corpuscular Hgb Conc 35.2 g/dL (32.0-36.0); Mean Corpuscular Volume 91.3 fL (80.0-100.0); Mean Platelet Volume 10.4 fL (9.4-12.4); Monocytes # (auto) 0.45 K/uL (0.24-0.82); Monocytes % (auto) 5.4 %; Neutrophils # (auto) 5.76 K/uL (1.4-6.5); Neutrophils % (auto) 69.7 %; Platelet Count 270 K/uL (130-400); RDW Coefficient of Variation 12.7 % (11.5-14.5); RDW Standard Deviation 42.1 fL (36.4-46.3); Red Blood Count 5.39 M/uL (4.63-6.08); White Blood Count 8.26 K/ul (4.8-10.8)
--- NOTE | 2021-12-22 14:25 | XRay Report ---
TWO VIEW CHEST CLINICAL HISTORY: Atypical chest pain. FINDINGS: PA and lateral chest radiographs are compared to study dated 03/20/2021. Correlation is made with chest CT dated 03/01/2019. The heart is mildly enlarged. The lungs and pleural spaces are clear noting mild bibasilar atelectasis. There is no pneumothorax. The bony thorax appears intact. IMPRESSION: No active disease in the chest. ACT 112: Negative or not required by law. Electronically signed by: Varun Domínguez M.D. 12/22/2021 2:24 PM
[2021-12-22 14:34] LABS: Alanine Aminotransferase 31 U/L (7-52); Albumin Globulin Ratio 1.1 (0.9-2); Albumin Level 4.6 gm/dl (3.4-5.0); Alkaline Phosphatase 78 U/L (34-104); Anion Gap 9 (3-11); Blood Urea Nitrogen 18 mg/dl (6-23); Calcium 10.5 mg/dl (8.5-10.1); Carbon Dioxide 26 mmol/L (21-32); Chloride 104 mmol/L (98-107); Creatinine Clr Calc Pharmacy 162.4 ml/min; Est GFR (African American) 127.5 ml/min; Globulin 4.1 gm/dl (2.5-4.0); Glucose 113 mg/dl (70-99(Fasting)); Sodium 139 mmol/L (136-145); Total Protein 8.7 gm/dl (6.0-8.3)
[2021-12-22] MEDS ORDERED: METOCLOPRAMIDE HCL INJ 5 MG/ML 2 ML VIAL IV STA (14:59)
[2021-12-22] MEDS ORDERED: diphenhydrAMINE 50 MG/ML VIAL IV STA (14:59)
[2021-12-22] MEDS ORDERED: SODIUM CHLORIDE 0.9% 1000ML 500 ML IV ONE (14:59)
--- NOTE | 2021-12-22 15:03 | Emergency Department Note ---
Impression & Plan Hypertensive emergency, Headache ADMIT ED Provider Note HPI: The patient is a 46-year-old male who presents the emergency department with multiple issues. Patient states over the past 2 days he has had intermittent chest discomfort that does not follow a particular pattern, states he is had a moderate headache that has been constant nature. Patient also states he has had some cramping in his left lower extremity. Patient states he did recently travel via flight to [place] and back. Patient states he went to urgent care and he was referred to the emergency department for further assessment. On arrival the patient's vital signs show tachycardia 118, he is also hypertensive at 162/117. On my initial assessment he is in mild distress secondary to hea dache but otherwise is without focal deficits, he is alert, he is saturating well on room air. ROS: -Neuro: Headache x2 days -MSK: Left lower extremity cramping/pain -Cardio: Intermittent chest discomfort *10 point review systems was conducted and is otherwise negative unless stated above *Outpatient medications and allergy history reviewed PE: General: Alert HEENT: Normocephalic, trachea midline Eyes: Extraocular eye movement is intact, no scleral erythema Pulmonary: Clear to auscultation bilaterally, no wheezing Cardio: Tachycardic rate and regular rhythm GI: Abdomen is soft, nontender : No suprapubic tenderness MSK: No evidence of trauma or malformation of the extremities, no edema Skin: No evidence of rash Neuro: Alert, no focal deficits Psychiatric: Cooperative youth nutritional monitor: - An order was placed for continuous cardiac monitoring - Patient was noted to be in sinus rhythm with a rate of 110 EKG: Rate: 95 Rhythm: Normal sinus rhythm Intervals: Within normal limits ST changes: No ST elevation Time: 1336 Interventions provided in ED: -IV Reglan, IV Benadryl, IV fluid bolus Medical Decision Making: Patient presented to the emergency department with chief complaint of headache, intermittent chest discomfort, also complained of some left leg cramping. On arrival the patient is hypertensive, IV was established, lab work obtained, patient was placed on quality assurance monitor. CT imaging of the head including CT angiography was obtained that does not show any evidence of any acute intracranial process, no evidence of any acute intracranial bleeding. Patient has no fever or leukocytosis, I have low suspicion for infectious etiology as a source of his headache, therefore LP was not performed. Lab work shows a mildly elevated troponin level at 34, EKG does not show any acute ischemic changes, CT angiography of the chest was obtained that does not show any evidence of pulmonary embolism. Patient complained of some myalgias and generalized weakness after recent travel, viral panel testing was obtained and is negative. Patient is negative for Lyme, Anaplasma, and Babesia. He mentioned that he had some left leg discomfort that he was concerned was related to an insect bite prior to his trip to [place] on business. No evidence of bull's-eye lesion or skin rashes noted. Ultrasound imaging for DVT was obtained that does not show any evidence of DVT in the left lower extremity. On my reassessment following Reglan, Benadryl, IV fluids, and IV labetalol the patient's blood pressure is improved however he remains mildly symptomatic. He states that his headache is much better but he still does not feel back to baseline. Given his elevated troponin and hypertension I do feel that he is fit for admission and case was discussed with the admitting hospitalist for the [facility], Dr. Rosario, and the patient was admitted in improved condition for further care. * CRITICAL CARE TIME: (39) minutes - Time spent at the bedside, independent of any procedures, in management of patient with complex medical issues including hypertensive emergency requiring IV medications for improvement, time spent with interpretation of diagnostic studies, discussion with patient, and other physicians, and arrangement of admission Diagnosis: 1. Hypertensive emergency 2. Elevated troponin 3. Headache, acute 4. Left lower extremity cramping/pain, acute 5. Generalized weakness Disposition: Admission Blas Colby DO Emergency Medicine Past Med/Surg History Medical History (Updated 12/22/21 @ 22:15 by Blas Colby DO) Acquired deviated nasal septum Elevated troponin HLD (hyperlipidemia) HTN (hypertension) No pertinent family history Surgical History No pertinent past surgical history Family History Other Heart disease Social History Smoking Status: Never smoker Second Hand Exposure: No; Hx Alcohol Use: No Hx Substance Use: No Preferred Language: Persian Communication Ability: Effective Mental Health Therapist Required: No Beliefs That Will Affect Care: Hoahaoism Hoahaoism Beliefs: Amish - no pork Current Living Situation: Spouse Feels Safe at Home: Yes Assistive Devices: None Allergies Allergies Allergy/AdvReac Type Severity Reaction Status Date / Time latex Allergy Mild Rash Verified 12/22/21 16:31 Home Meds Home Medications Medication Instructions Recorded Confirmed amoxicillin 875 mg tablet 825 mg PO BID 12/22/21 12/22/21 atorvastatin 10 mg tablet 10 mg PO HS 12/22/21 12/22/21 losartan 100 mg tablet 100 mg PO DAILY 12/22/21 12/22/21 metformin 500 mg tablet,extended 500 mg PO BID 12/22/21 12/22/21 release 24 hr metoprolol tartrate 25 mg tablet 25 mg PO BID 12/22/21 12/22/21 naltrexone 8 mg-bupropion 90 mg 1 tab PO DIRECTED 12/22/21 12/22/21 tablet,extended release (Contrave) nifedipine 60 mg tablet,extended 60 mg PO DAILY 12/22/21 12/22/21 release 24 hr ondansetron HCl 4 mg tablet 4 mg PO Q8 PRN Nausea 12/22/21 12/22/21 valacyclovir 500 mg tablet 500 mg PO DAILY 12/22/21 12/22/21 Results & Data (ED) Vital Signs Vital Signs - 24 hr 12/22/21 13:29 12/22/21 15:57 12/22/21 17:57 Temperature 36.8 C Temperature Source Temporal Artery Scan Pulse Rate 118 H Pulse Rate [Apical] 77 76 Pulse Rhythm Regular Pulse Strength Normal Respiratory Rate 20 20 20 Respiratory Effort / Characteristics Non-Labored Spontaneous Non-Labored Respiratory Depth Normal Normal Respiratory Pattern Regular Blood Pressure 162/117 H Blood Pressure [Right Arm] 172/115 H 158/106 H Blood Pressure Mean 132 Blood Pressure Mean [Right Arm] 134 123 Blood Pressure Position Sitting Pulse Oximetry 96 95 95 Oxygen Delivery Method Room Air Room Air Room Air Sepsis Recent Fever Within 48 Hours No Sepsis New/Unexplained Change in Mental Status No Sepsis Action Taken by Nursing No Action Required Laboratory Data Result diagrams: 12/22/21 13:43 12/22/21 15:22 Lab Results 12/22/21 12/22/21 12/22/21 Range/Units 13:43 13:43 13:43 WBC 8.26 (4.8-10.8) K/ul RBC 5.39 (4.63-6.08) M/uL Hgb 17.3 (14.0-18.0) g/dl Hct 49.2 (40.1-51.0) % MCV 91.3 (80.0-100.0) fL MCH 32.1 (25.0-34.0) pg MCHC 35.2 (32.0-36.0) g/dL RDW Std Deviation 42.1 (36.4-46.3) fL RDW Coeff of Shabana 12.7 (11.5-14.5) % Plt Count 270 (130-400) K/uL MPV 10.4 (9.4-12.4) fL Immature Gran % (Auto) 0.4 % Neut % (Auto) 69.7 % Lymph % (Auto) 19.4 % [place] % (Auto) 5.4 % Eos % (Auto) 4.5 % Baso % (Auto) 0.6 % Neut # (Auto) 5.76 (1.4-6.5) K/uL Lymph # (Auto) 1.60 (1.2-3.4) K/uL [place] # (Auto) 0.45 (0.24-0.82) K/uL Eos # (Auto) 0.37 (0-0.50) K/uL Baso # (Auto) 0.05 (0-0.2) K/uL Immature Gran # (Auto) 0.03 H (0.00-0.02) K/uL PT Cancelled INR Cancelled APTT Cancelled PTT Ratio Cancelled Sodium 139 (136-145) mmol/L Potassium TNP Chloride 104 (98-107) mmol/L Carbon Dioxide 26 (21-32) mmol/L Anion Gap 9 (3-11) BUN 18 (6-23) mg/dl Creatinine 0.75 (0.6-1.4) mg/dl Est Cr Clr Drug Dosing 162.4 ml/min Est GFR ( Amer) 127.5 ml/min Est GFR (Non-Af Amer) 110.0 ml/min BUN/Creatinine Ratio 24.0 H (10-20) Glucose 113 H (70-99(Fasting)) mg/dl Calcium 10.5 H (8.5-10.1) mg/dl Total Bilirubin 1.0 (0.2-1.0) mg/dl AST TNP ALT 31 (7-52) U/L Alkaline Phosphatase 78 (34-104) U/L Troponin I High Sens 34.0 H (0-20) pg/ml Total Protein 8.7 H (6.0-8.3) gm/dl Albumin 4.6 (3.4-5.0) gm/dl Globulin 4.1 H (2.5-4.0) gm/dl Albumin/Globulin Ratio 1.1 (0.9-2) Adenovirus (PCR) (NotDetected) Anaplasma Smear Babesia Smear B. pertussis DNA (PCR) (NotDetected) B.parapertussis DNA PCR (NotDetected) Lyme Disease IgG Ab (Negative) Lyme Disease IgM Ab (Negative) C. pneumoniae DNA (PCR) (NotDetected) Coronavirus OC43 (PCR) (NotDetected) Coronavirus HKU1 (PCR) (NotDetected) Coronavirus 229E (PCR) (NotDetected) SARS-CoV-2 (PCR) (NotDetected) Coronavirus NL63 (PCR) (NotDetected) Human Metapneumovir PCR (NotDetected) Influenza Type A (PCR) (NotDetected) Influenza Type B (PCR) (NotDetected) M. pneumoniae (PCR) (NotDetected) Parainfluenza 1 (PCR) (NotDetected) Parainfluenza 2 (PCR) (NotDetected) Parainfluenza 3 (PCR) (NotDetected) Parainfluenza 4 (PCR) (NotDetected) RSV (PCR) (NotDetected) Entero/Rhino (PCR) (NotDetected) 12/22/21 12/22/21 12/22/21 Range/Units 15:22 15:22 15:22 WBC (4.8-10.8) K/ul RBC (4.63-6.08) M/uL Hgb (14.0-18.0) g/dl Hct (40.1-51.0) % MCV (80.0-100.0) fL MCH (25.0-34.0) pg MCHC (32.0-36.0) g/dL RDW Std Deviation (36.4-46.3) fL RDW Coeff of Shabana (11.5-14.5) % Plt Count (130-400) K/uL MPV (9.4-12.4) fL Immature Gran % (Auto) % Neut % (Auto) % Lymph % (Auto) % [place] % (Auto) % Eos % (Auto) % Baso % (Auto) % Neut # (Auto) (1.4-6.5) K/uL Lymph # (Auto) (1.2-3.4) K/uL [place] # (Auto) (0.24-0.82) K/uL Eos # (Auto) (0-0.50) K/uL Baso # (Auto) (0-0.2) K/uL Immature Gran # (Auto) (0.00-0.02) K/uL PT 11.4 INR 1.1 APTT 25.5 PTT Ratio 0.9 Sodium (136-145) mmol/L Potassium 3.9 Chloride (98-107) mmol/L Carbon Dioxide (21-32) mmol/L Anion Gap (3-11) BUN (6-23) mg/dl Creatinine (0.6-1.4) mg/dl Est Cr Clr Drug Dosing ml/min Est GFR ( Amer) ml/min Est GFR (Non-Af Amer) ml/min BUN/Creatinine Ratio (10-20) Glucose (70-99(Fasting)) mg/dl Calcium (8.5-10.1) mg/dl Total Bilirubin (0.2-1.0) mg/dl AST 20 ALT (7-52) U/L Alkaline Phosphatase (34-104) U/L Troponin I High Sens (0-20) pg/ml Total Protein (6.0-8.3) gm/dl Albumin (3.4-5.0) gm/dl Globulin (2.5-4.0) gm/dl Albumin/Globulin Ratio (0.9-2) Adenovirus (PCR) (NotDetected) Anaplasma Smear See Comment Babesia Smear See Comment B. pertussis DNA (PCR) (NotDetected) B.parapertussis DNA PCR (NotDetected) Lyme Disease IgG Ab (Negative) Lyme Disease IgM Ab (Negative) C. pneumoniae DNA (PCR) (NotDetected) Coronavirus OC43 (PCR) (NotDetected) Coronavirus HKU1 (PCR) (NotDetected) Coronavirus 229E (PCR) (NotDetected) SARS-CoV-2 (PCR) (NotDetected) Coronavirus NL63 (PCR) (NotDetected) Human Metapneumovir PCR (NotDetected) Influenza Type A (PCR) (NotDetected) Influenza Type B (PCR) (NotDetected) M. pneumoniae (PCR) (NotDetected) Parainfluenza 1 (PCR) (NotDetected) Parainfluenza 2 (PCR) (NotDetected) Parainfluenza 3 (PCR) (NotDetected) Parainfluenza 4 (PCR) (NotDetected) RSV (PCR) (NotDetected) Entero/Rhino (PCR) (NotDetected) 12/22/21 12/22/21 12/22/21 Range/Units 15:22 15:22 18:22 WBC (4.8-10.8) K/ul RBC (4.63-6.08) M/uL Hgb (14.0-18.0) g/dl Hct (40.1-51.0) % MCV (80.0-100.0) fL MCH (25.0-34.0) pg MCHC (32.0-36.0) g/dL RDW Std Deviation (36.4-46.3) fL RDW Coeff of Shabana (11.5-14.5) % Plt Count (130-400) K/uL MPV (9.4-12.4) fL Immature Gran % (Auto) % Neut % (Auto) % Lymph % (Auto) % [place] % (Auto) % Eos % (Auto) % Baso % (Auto) % Neut # (Auto) (1.4-6.5) K/uL Lymph # (Auto) (1.2-3.4) K/uL [place] # (Auto) (0.24-0.82) K/uL Eos # (Auto) (0-0.50) K/uL Baso # (Auto) (0-0.2) K/uL Immature Gran # (Auto) (0.00-0.02) K/uL PT INR APTT PTT Ratio Sodium (136-145) mmol/L Potassium Chloride (98-107) mmol/L Carbon Dioxide (21-32) mmol/L Anion Gap (3-11) BUN (6-23) mg/dl Creatinine (0.6-1.4) mg/dl Est Cr Clr Drug Dosing ml/min Est GFR ( Amer) ml/min Est GFR (Non-Af Amer) ml/min BUN/Creatinine Ratio (10-20) Glucose (70-99(Fasting)) mg/dl Calcium (8.5-10.1) mg/dl Total Bilirubin (0.2-1.0) mg/dl AST ALT (7-52) U/L Alkaline Phosphatase (34-104) U/L Troponin I High Sens 31.7 H (0-20) pg/ml Total Protein (6.0-8.3) gm/dl Albumin (3.4-5.0) gm/dl Globulin (2.5-4.0) gm/dl Albumin/Globulin Ratio (0.9-2) Adenovirus (PCR) Not Detected (NotDetected) Anaplasma Smear Babesia Smear B. pertussis DNA (PCR) Not Detected (NotDetected) B.parapertussis DNA PCR Not Detected (NotDetected) Lyme Disease IgG Ab Negative (Negative) Lyme Disease IgM Ab Negative (Negative) C. pneumoniae DNA (PCR) Not Detected (NotDetected) Coronavirus OC43 (PCR) Not Detected (NotDetected) Coronavirus HKU1 (PCR) Not Detected (NotDetected) Coronavirus 229E (PCR) Not Detected (NotDetected) SARS-CoV-2 (PCR) Not Detected (NotDetected) Coronavirus NL63 (PCR) Not Detected (NotDetected) Human Metapneumovir PCR Not Detected (NotDetected) Influenza Type A (PCR) Not Detected (NotDetected) Influenza Type B (PCR) Not Detected (NotDetected) M. pneumoniae (PCR) Not Detected (NotDetected) Parainfluenza 1 (PCR) Not Detected (NotDetected) Parainfluenza 2 (PCR) Not Detected (NotDetected) Parainfluenza 3 (PCR) Not Detected (NotDetected) Parainfluenza 4 (PCR) Not Detected (NotDetected) RSV (PCR) Not Detected (NotDetected) Entero/Rhino (PCR) Not Detected (NotDetected) Administered Medications Amlodipine Besylate (Amlodipine Besylate 5 Mg Tab) 2.5 mg PO BID MONICA Stop: 01/21/22 20:59 Last Admin: 12/22/21 21:33 Dose: 2.5 mg Documented By: OO Amoxicillin (Amoxicillin 250 Mg Cap) 750 mg PO BID MONICA Stop: 01/01/22 21:59 Last Admin: 12/22/21 21:33 Dose: 750 mg Documented By: OO Atorvastatin Calcium (Atorvastatin 10 Mg Tab) 10 mg PO HS MONICA Stop: 01/21/22 20:59 Last Admin: 12/22/21 21:34 Dose: 10 mg Documented By: OO Metoprolol Tartrate (Metoprolol Tartrate 50 Mg Tab) 50 mg PO BID MONICA Stop: 01/21/22 20:59 Last Admin: 12/22/21 21:34 Dose: 50 mg Documented By: OO Discontinued Medications Aspirin (Aspirin Chew 324 Mg) 324 mg PO NOW STA Stop: 12/22/21 18:27 Last Admin: 12/22/21 18:42 Dose: 324 mg Documented By: ES Diphenhydramine HCl (Diphenhydramine 50 Mg/Ml Vial) 25 mg IV NOW STA Stop: 12/22/21 15:00 Last Admin: 12/22/21 15:15 Dose: 25 mg Documented By: ED Sodium Chloride (Nss 1000ml) 500 mls @ 999 mls/hr IV .Q31M ONE Stop: 12/22/21 15:29 Last Infusion: 12/22/21 15:53 Dose: 0 mls/hr Documented By: Admin: 12/22/21 15:13 Dose: 999 mls/hr Documented By: ED Enalaprilat 0.625 mg/ Syringe 10 mls @ 2 mls/min IV ONE ONE Stop: 12/22/21 20:19 Last Admin: 12/22/21 21:32 Dose: 2 mls/min Documented By: OO Ioversol (Optiray 320 500ml) 104 ml IV ONCE ONE Stop: 12/22/21 15:49 Last Admin: 12/22/21 15:48 Dose: 104 ml Documented By: DG Labetalol HCl (Labetalol Hcl Iv 5 Mg/Ml 20ml) 10 mg IV NOW STA Stop: 12/22/21 15:57 Last Admin: 12/22/21 16:03 Dose: 10 mg Documented By: ES Co-signed By: QGV Metoclopramide HCl (Metoclopramide Hcl Inj 5 Mg/Ml 2 Ml Vial) 10 mg IV NOW STA Stop: 12/22/21 15:00 Last Admin: 12/22/21 15:15 Dose: 10 mg Documented By: ED Imaging Data Radiologist's Impression: Chest X-Ray 12/22/21 13:34 TWO VIEW CHEST CLINICAL HISTORY: Atypical chest pain. FINDINGS: PA and lateral chest radiographs are compared to study dated 03/20/2021. Correlation is made with chest CT dated 03/01/2019. The heart is mildly enlarged. The lungs and pleural spaces are clear noting mild bibasilar atelectasis. There is no pneumothorax. The bony thorax appears intact. IMPRESSION: No active disease in the chest. ACT 112: Negative or not required by law. Electronically signed by: Varun Domínguez M.D. 12/22/2021 2:24 PM Head CTA 12/22/21 14:59 CT angio head wo/w CLINICAL HISTORY: Headache. COMPARISON STUDY: Head CT and CTA of the head December 19, 2019. TECHNIQUE: Unenhanced and arterial phase imaging of the head was performed. Intravenous injection of 104 cc of Optiray 320 IV was uneventful. Sagittal and coronal reconstructions were viewed as well as maximal intensity projections on an independent 3-D workstation. Automated exposure control was utilized for the study. A dose lowering technique was utilized adhering to the principles of ALARA. FINDINGS: No acute intracranial hemorrhage, midline shift or mass effect is present. Ventricular system is normal. Basal cisterns are patent. There are no extra-axial collections. There are no findings to suggest acute dural sinus thrombosis or acute territorial infarct. The appearance of the brain is unchanged. There are no significant calvarial abnormalities. The bilateral M1, M2, A1 and A2 segments are patent. The posterior circulation is intact. There is no intracranial aneurysm. No central vessel occlusion is present. Major dural sinuses are patent. IMPRESSION: 1. No acute intracranial findings. 2. Unremarkable CTA of the head. ACT 112: Negative or not required by law. Electronically signed by: Alan Salgado M.D. 12/22/2021 4:15 PM Chest CTA 12/22/21 15:22 CT ANGIOGRAPHY OF THE CHEST, PULMONARY EMBOLUS PROTOCOL CLINICAL HISTORY: Atypical chest pain. COMPARISON STUDY: Chest radiograph performed earlier today. Chest CT March 01, 2019. TECHNIQUE: Following IV administration of 104 mL of Optiray, helical axial images of the chest were obtained utilizing the pulmonary embolus protocol. Maximal intensity projections and sagittal and coronal reformats were viewed on an independent 3D workstation. IV contrast was administered without complicatio n. Automated exposure control was utilized for the study. A dose lowering technique was utilized adhering to the principles of ALARA. CT DOSE: 2067.56 mGy.cm FINDINGS: No central or lobar pulmonary emboli are identified. The segmental and subsegmental pulmonary arteries are suboptimally assessed due to suboptimal opacification. Moderate cardiomegaly is noted. There is no pericardial effusion. No thoracic aortic dissection is present. There is no thoracic lymphadenopathy. No pneumothorax or pleural effusion is present. There is no consolidation to suggest pneumonia. Groundglass opacities favor atelectasis. There is mild mosaic attenuation. No acute fracture within the visualized bony thorax is noted. The CTA of the head will be reported separate. Major vasculature of the neck appears patent. There is no cervical lymphadenopathy. There is no fluid collection within the neck. IMPRESSION: 1. No central or lobar pulmonary emboli. Remainder of pulmonary arteries suboptimally assessed due to suboptimal opacification. 2. No acute intrathoracic findings. 3. Moderate cardiomegaly. ACT 112: Negative or not required by law. Electronically signed by: Alan Salgado M.D. 12/22/2021 4:11 PM Venous Doppler Study 12/22/21 15:23 LEFT LOWER EXTREMITY VENOUS DOPPLER CLINICAL HISTORY: Left leg pain. Evaluate for deep venous thrombus. COMPARISON STUDY: No previous studies for comparison. TECHNIQUE: Sonography of the deep venous system of the left lower extremity was performed. Compression and augmentation were evaluated. FINDINGS: The left common femoral, superficial femoral and popliteal veins were compressible. Augmentation was normal. Flow was shown within the deep calf vessels. IMPRESSION: No evidence of deep venous thrombus within the left lower extremity. ACT 112: Negative or not required by law. Electronically signed by: Alan Salgado M.D. 12/22/2021 5:10 PM Discharge Plan Visit Data Chief Complaint: Headache Stated Complaint: ABNORMAL LAB, CHEST PAIN ED Provider: Blas Colby Discharge Problem: Hypertensive emergency, Headache Patient Disposition: Admitted As Inpatient Discharge Instructions Interventions: ED Discharge Assessment Last Done: 12/22/21 20:13
[2021-12-22] MEDS ORDERED: OPTIRAY 320 500ml IV ONE (15:48)
[2021-12-22 15:49] LABS: INR 1.1 (0.9-1.1); Partial Thromboplastin Ratio 0.9; Partial Thromboplastin Time 25.5 Seconds (21.0-31.0); Prothrombin Time 11.4 Seconds (9.0-12.0)
[2021-12-22] MEDS ORDERED: LABETALOL HCL IV 5 MG/ML 20ML IV STA (15:56)
[2021-12-22 15:59] LABS: Potassium 3.9 mmol/L (3.5-5.1)
--- NOTE | 2021-12-22 16:12 | CT Scan Report ---
CT ANGIOGRAPHY OF THE CHEST, PULMONARY EMBOLUS PROTOCOL CLINICAL HISTORY: Atypical chest pain. COMPARISON STUDY: Chest radiograph performed earlier today. Chest CT March 01, 2019. TECHNIQUE: Following IV administration of 104 mL of Optiray, helical axial images of the chest were o btained utilizing the pulmonary embolus protocol. Maximal intensity projections and sagittal and cor onal reformats were viewed on an independent 3D workstation. IV contrast was administered without co mplication. Automated exposure control was utilized for the study. A dose lowering technique was ut ilized adhering to the principles of ALARA. CT DOSE: 2067.56 mGy.cm FINDINGS: No central or lobar pulmonary emboli are identified. The segmental and subsegmental pulmon lanre arteries are suboptimally assessed due to suboptimal opacification. Moderate cardiomegaly is note d. There is no pericardial effusion. No thoracic aortic dissection is present. There is no thoracic l ymphadenopathy. No pneumothorax or pleural effusion is present. There is no consolidation to suggest pneumonia. Groundglass opacities favor atelectasis. There is mild mosaic attenuation. No acute fractu re within the visualized bony thorax is noted. The CTA of the head will be reported separate. Major v asculature of the neck appears patent. There is no cervical lymphadenopathy. There is no fluid collec tion within the neck. IMPRESSION: 1. No central or lobar pulmonary emboli. Remainder of pulmonary arteries suboptimally assessed due to suboptimal opacification. 2. No acute intrathoracic findings. 3. Moderate cardiomegaly. ACT 112: Negative or not required by law. Electronically signed by: Alan Salgado M.D. 12/22/2021 4:11 PM
--- NOTE | 2021-12-22 16:17 | CT Scan Report ---
CT angio head wo/w CLINICAL HISTORY: Headache. COMPARISON STUDY: Head CT and CTA of the head December 19, 2019. TECHNIQUE: Unenhanced and arterial phase imaging of the head was performed. Intravenous injection of 104 cc of Optiray 320 IV was uneventful. Sagittal and coronal reconstructions were viewed as well as maximal intensity projections on an independent 3-D workstation. Automated exposure control was utili [employer] for the study. A dose lowering technique was utilized adhering to the principles of ALARA. FINDINGS: No acute intracranial hemorrhage, midline shift or mass effect is present. Ventricular syst em is normal. Basal cisterns are patent. There are no extra-axial collections. There are no findings to suggest acute dural sinus thrombosis or acute territorial infarct. The appearance of the brain is unchanged. There are no significant calvarial abnormalities. The bilateral M1, M2, A1 and A2 segments are patent. The posterior circulation is intact. There is no intracranial aneurysm. No central vesse l occlusion is present. Major dural sinuses are patent. IMPRESSION: 1. No acute intracranial findings. 2. Unremarkable CTA of the head. ACT 112: Negative or not required by law. Electronically signed by: Alan Salgado M.D. 12/22/2021 4:15 PM
[2021-12-22 16:25] LABS: Adenovirus PCR Not Detected (NotDetected); Bordetella parapertussis PCR Not Detected (NotDetected); Bordetella pertussis PCR Not Detected (NotDetected); Chlamydia pneumoniae PCR Not Detected (NotDetected); Coronavirus 229E PCR Not Detected (NotDetected); Coronavirus CoV-2 (COVID19)PCR Not Detected (NotDetected); Coronavirus HKU1 PCR Not Detected (NotDetected); Coronavirus NL63 PCR Not Detected (NotDetected); Coronavirus OC43PCR Not Detected (NotDetected); Human Metapneumovirus PCR Not Detected (NotDetected); Influenza A PCR Not Detected (NotDetected); Influenza B PCR Not Detected (NotDetected); Lyme Ab IgG w/WB Rflx Negative (Negative); Lyme Ab IgM w/WB Rflx Negative (Negative); Mycoplasma pneumoniae PCR Not Detected (NotDetected); Parainfluenza Virus 1 PCR Not Detected (NotDetected); Parainfluenza Virus 2 PCR Not Detected (NotDetected); Parainfluenza Virus 3 PCR Not Detected (NotDetected); Parainfluenza Virus 4 PCR Not Detected (NotDetected); Respiratory Syncytial VirusPCR Not Detected (NotDetected); Rhinovirus/Enterovirus PCR Not Detected (NotDetected)
--- NOTE | 2021-12-22 17:11 | Ultrasound Report ---
LEFT LOWER EXTREMITY VENOUS DOPPLER CLINICAL HISTORY: Left leg pain. Evaluate for deep venous thrombus. COMPARISON STUDY: No previous studies for comparison. TECHNIQUE: Sonography of the deep venous system of the left lower extremity was performed. Compressi on and augmentation were evaluated. FINDINGS: The left common femoral, superficial femoral and popliteal veins were compressible. Augmen tation was normal. Flow was shown within the deep calf vessels. IMPRESSION: No evidence of deep venous thrombus within the left lower extremity. ACT 112: Negative or not required by law. Electronically signed by: Alan Salgado M.D. 12/22/2021 5:10 PM
[2021-12-22] MEDS ORDERED: ASPIRIN CHEW 324 MG PO STA (18:26)
--- NOTE | 2021-12-22 18:59 | History & Physical Report ---
Date of Service December 22, 2021 Assessment & Plan (1) Hypertensive urgency: (2) Elevated troponin: (3) Suppurative otitis media of left ear without rupture of tympanic membrane: (4) NEO (obstructive sleep apnea): (5) HLD (hyperlipidemia): (6) HTN (hypertension): Plan This is a 46-year-old male with past medical history of uncontrolled hypertension, NEO not on CPAP, dyslipidemia, venous stasis of bilateral lower extremities and other medical problems listed below who presents with headache that started yesterday and was found to have hypertensive urgency. Hypertensive urgency Headache Atypical chest pain BP 162/117 on admission -given IV labetalol and enalapril in ED States he is compliant with home regimen of losartan 100 mg, metoprolol tartrate 25 twice daily, nifedipine 60 mg daily. Was on chlorthalidone in the past but stopped due to gout episode History of hypertensive urgency in the past, last admitted in 2019 CTA head/neck unremarkable CTA chest negative for PE. Moderate cardiomegaly noted Will increase metoprolol to tartrate to 50 mg twice daily, add amlodipine 2.5 mg twice daily, as needed labetalol 10 mg every 6 hours as needed for SBP > 180 or DBP > 110 Appreciate cardiology recommendations Elevated troponin Likely demand ischemia 2/2 hypertensive urgency Has atypical chest pain presenting as constant burning High sensitive troponin initially 34 -> 31.7 Continue to trend troponins overnight, monitor on telemetry Echo from 2019 with moderate concentric LVH without wall motion abnormalities, preserved EF of 60-65%, grade 2 diastolic dysfunction NPO @ [place] Otitis media of left ear URI Seen in urgent care today, started on amoxicillin course BID through 01/01. Continue Upper resp panel negative for covid, flu, rsv, parainfluenza, rhinovirus Hyperlipidemia Continue atorvastatin Morbid obesity BMI 39. Following with Weight mgmt clinic, currently on Contrave, metformin. Hold both medications for now DVT Ppx: SCDs for now given elevated BP Code status: FULL PCP: [facility] Dispo: PCU Patient seen in collaboration with Dr. Rosario. Please see addendum. History of Present Illness Chief Complaint: headache Primary Care Provider: Grzegorz Martinez DO This is a 46-year-old male with past medical history of uncontrolled hypertension, NEO not on CPAP, dyslipidemia, venous stasis of bilateral lower extremities and other medical problems listed below who presents with headache that started yesterday. Pain is throbbing and mainly located on back side of head. Associated nausea and burning across his chest that is constant and nonradiating. Also endorses rhinorrhea, congestion and sore throat over the past few days. Was seen at convenient care earlier today for burning in chest, nausea, headache and ear pain. Was started on amoxicillin earlier today for left ear infection and directed to ED for further evaluation of chest discomfort, nausea. Denies any fever, chills, SOB, vomiting, abdominal pain, dysuria, diarrhea or constipation. Endorses taking his medications as prescribed including 3 antihypertensives. Diagnosed with NEO in the past but could not tolerate CPAP 2/2 claustrophobia. Patient is a non-smoker. Father with history of CAD. Of note, patient was admitted in 2019 for hypertensive crisis in setting of medication noncompliance. At that time 2D echo with moderate concentric LVH without wall motion abnormalities, preserved EF of 60 to 65% and grade 2 diastolic dysfunction. Allergies Allergy/AdvReac Type Severity Reaction Status Date / Time latex Allergy Mild Rash Verified 12/22/21 16:31 Home Medications Medication Instructions Recorded Confirmed Type amoxicillin 875 mg tablet 825 mg PO BID 12/22/21 12/22/21 History atorvastatin 10 mg tablet 10 mg PO HS 12/22/21 12/22/21 History losartan 100 mg tablet 100 mg PO DAILY 12/22/21 12/22/21 History metformin 500 mg tablet,extended 500 mg PO BID 12/22/21 12/22/21 History release 24 hr metoprolol tartrate 25 mg tablet 25 mg PO BID 12/22/21 12/22/21 History naltrexone 8 mg-bupropion 90 mg 1 tab PO DIRECTED 12/22/21 12/22/21 History tablet,extended release (Contrave) nifedipine 60 mg tablet,extended 60 mg PO DAILY 12/22/21 12/22/21 History release 24 hr ondansetron HCl 4 mg tablet 4 mg PO Q8 PRN Nausea 12/22/21 12/22/21 History valacyclovir 500 mg tablet 500 mg PO DAILY 12/22/21 12/22/21 History Past Med/Surg History Medical History (Updated 12/22/21 @ 19:55 by Sabrina Kim PA-C) Acquired deviated nasal septum Elevated troponin HLD (hyperlipidemia) HTN (hypertension) No pertinent family history Surgical History No pertinent past surgical history Family History Other Heart disease Social History Smoking Status: Never smoker Second Hand Exposure: No; Hx Alcohol Use: No Hx Substance Use: No Preferred Language: Sammarinese Communication Ability: Effective Dairy Helper Required: No Beliefs That Will Affect Care: Sabianism Sabianism Beliefs: Alevism - no pork Current Living Situation: Spouse Feels Safe at Home: Yes Assistive Devices: None Review of Systems Review of Systems: At least ten systems reviewed and negative except as noted in the HPI. Physical Exam Physical Exam: Please see Dr. Rosario's addendum for physical exam. Results & Data Results & Data ([facility]) Vital Signs (Past 12 Hours) Vital Signs Temp Pulse Pulse Resp BP BP Pulse Ox 12/22/21 17:57 76 20 158/106 H 95 12/22/21 15:57 77 20 172/115 H 95 12/22/21 13:29 36.8 C 118 H 20 162/117 H 96 O2 Del Method 12/22/21 17:57 Room Air 12/22/21 15:57 Room Air 12/22/21 13:29 Room Air Laboratory Results Short CBC 12/22/21 Range/Units 13:43 WBC 8.26 (4.8-10.8) K/ul Hgb 17.3 (14.0-18.0) g/dl Hct 49.2 (40.1-51.0) % Plt Count 270 (130-400) K/uL BMP 12/22/21 12/22/21 13:43 15:22 Sodium 139 Potassium TNP 3.9 Chloride 104 Carbon Dioxide 26 BUN 18 Creatinine 0.75 Glucose 113 H Calcium 10.5 H Liver Function 12/22/21 12/22/21 Range/Units 13:43 15:22 Total Bilirubin 1.0 (0.2-1.0) mg/dl AST TNP 20 ALT 31 (7-52) U/L Alkaline Phosphatase 78 (34-104) U/L Albumin 4.6 (3.4-5.0) gm/dl Diagnostic Findings Chest X-Ray 12/22/21 13:34 TWO VIEW CHEST CLINICAL HISTORY: Atypical chest pain. FINDINGS: PA and lateral chest radiographs are compared to study dated 03/20/2021. Correlation is made with chest CT dated 03/01/2019. The heart is mildly enlarged. The lungs and pleural spaces are clear noting mild bibasilar atelectasis. There is no pneumothorax. The bony thorax appears intact. IMPRESSION: No active disease in the chest. ACT 112: Negative or not required by law. Electronically signed by: Varun Domínguez M.D. 12/22/2021 2:24 PM Head CTA 12/22/21 14:59 CT angio head wo/w CLINICAL HISTORY: Headache. COMPARISON STUDY: Head CT and CTA of the head December 19, 2019. TECHNIQUE: Unenhanced and arterial phase imaging of the head was performed. Intravenous injection of 104 cc of Optiray 320 IV was uneventful. Sagittal and coronal reconstructions were viewed as well as maximal intensity projections on an independent 3-D workstation. Automated exposure control was utilized for the study. A dose lowering technique was utilized adhering to the principles of ALARA. FINDINGS: No acute intracranial hemorrhage, midline shift or mass effect is present. Ventricular system is normal. Basal cisterns are patent. There are no extra-axial collections. There are no findings to suggest acute dural sinus thrombosis or acute territorial infarct. The appearance of the brain is unchanged. There are no significant calvarial abnormalities. The bilateral M1, M2, A1 and A2 segments are patent. The posterior circulation is intact. There is no intracranial aneurysm. No central vessel occlusion is present. Major dural sinuses are patent. IMPRESSION: 1. No acute intracranial findings. 2. Unremarkable CTA of the head. ACT 112: Negative or not required by law. Electronically signed by: Alan Salgado M.D. 12/22/2021 4:15 PM Chest CTA 12/22/21 15:22 CT ANGIOGRAPHY OF THE CHEST, PULMONARY EMBOLUS PROTOCOL CLINICAL HISTORY: Atypical chest pain. COMPARISON STUDY: Chest radiograph performed earlier today. Chest CT March 01, 2019. TECHNIQUE: Following IV administration of 104 mL of Optiray, helical axial images of the chest were obtained utilizing the pulmonary embolus protocol. Maximal intensity projections and sagittal and coronal reformats were viewed on an independent 3D workstation. IV contrast was administered without complication. Automated exposure control was utilized for the study. A dose lowering technique was utilized adhering to the principles of ALARA. CT DOSE: 2067.56 mGy.cm FINDINGS: No central or lobar pulmonary emboli are identified. The segmental and subsegmental pulmonary arteries are suboptimally assessed due to suboptimal opacification. Moderate cardiomegaly is noted. There is no pericardial effusion. No thoracic aortic dissection is present. There is no thoracic lymphadenopathy. No pneumothorax or pleural effusion is present. There is no consolidation to suggest pneumonia. Groundglass opacities favor atelectasis. There is mild mosaic attenuation. No acute fracture within the visualized bony thorax is noted. The CTA of the head will be reported separate. Major vasculature of the neck appears patent. There is no cervical lymphadenopathy. There is no fluid collection within the neck. IMPRESSION: 1. No central or lobar pulmonary emboli. Remainder of pulmonary arteries suboptimally assessed due to suboptimal opacification. 2. No acute intrathoracic findings. 3. Moderate cardiomegaly. ACT 112: Negative or not required by law. Electronically signed by: Alan Salagdo M.D. 12/22/2021 4:11 PM Venous Doppler Study 12/22/21 15:23 LEFT LOWER EXTREMITY VENOUS DOPPLER CLINICAL HISTORY: Left leg pain. Evaluate for deep venous thrombus. COMPARISON STUDY: No previous studies for comparison. TECHNIQUE: Sonography of the deep venous system of the left lower extremity was performed. Compression and augmentation were evaluated. FINDINGS: The left common femoral, superficial femoral and popliteal veins were compressible. Augmentation was normal. Flow was shown within the deep calf vessels. IMPRESSION: No evidence of deep venous thrombus within the left lower extremity. ACT 112: Negative or not required by law. Electronically signed by: Alan Salgado M.D. 12/22/2021 5:10 PM ECG Additional Comments: NSR 95, no ST elevation or significant change from previous Code Status & VTE Plan VTE Prophylaxis Plan VTE Prophylaxis will be ordered: Yes Supervising Physician Co-Signing Physician Notes Patient is a 46-year-old male with history of hypertension, obstructive sleep apnea, Obesity and other medical problems presents with history of worsening headache, associated with burning sensation in his chest, nausea and nasal congestion with some sore throat. Patient admits to take his blood pressure medications regularly. He is currently using a dental device for obstructive sleep apnea but could not use CPAP due to claustrophobia. Currently he denies any chest pain. He was started on amoxicillin for a possible left ear infection today. Please review HPI for complete details of presentation. Blood work reviewed. Glucose elevated at 113, troponin 34. Blood work otherwise within normal limits. Bio fire negative. Head CTA showed no acute intracranial findings. Chest CTA showed no PE or acute intrathoracic findings but showed moderate cardiomegaly. Venous Doppler showed no DVT. EKG showed normal sinus rhythm, incomplete right bundle branch block, left anterior fascicular block. Physical Exam: Vitals signs as noted above General Appearance:Obese, no apparent distress Head: normocephalic, Atraumatic Eyes: normal inspection, EOMI Neck: supple, Trachea midline Respiratory/Chest: Normal breath sounds, CTA, No accessory muscle use Cardiovascular: S1, S2, No murmur Abdomen/GI:Soft, Non tender, Bowel sounds present Extremities/Musculoskeletal:normal inspection, no edema Neurologic/Psych:AAOX3, grossly no focal neurological deficits Skin: normal color, warm Hypertensive urgency Atypical chest pain Mild troponin elevation likely demand ischemia secondary to hypertension Patient denies phonophobia, photophobia but admits to have migraine previously States being compliant to home medications Imaging studies unremarkable Agree with echo, trending cardiac enzymes Check lipid panel, A1c Continue losartan, nifedipine. Increase metoprolol to 50 mg twice daily Started on low-dose amlodipine IV labetalol as needed Sleep apnea likely contributing I personally reviewed the record. Patient is interviewed and examined at bedside. Patient's care is coordinated with Sabrina Kim PA-C. Please refer to the documentation above for details of patient's presentation and for discussion of other issues.
[2021-12-22] MEDS ORDERED: ENALAPRILAT 0.625 MG in SYRINGE 9.5 ML IV ONE (20:15)
[2021-12-22] MEDS ORDERED: ACETAMINOPHEN 325 MG TAB PO PRN (20:39)
[2021-12-22] MEDS ORDERED: LABETALOL HCL IV 5 MG/ML 20ML IV PRN (20:39)
[2021-12-22] MEDS ORDERED: ONDANSETRON INJ 2 MG/ML 2 ML VIAL IV PRN (20:39)
[2021-12-22] MEDS ORDERED: POLYETHYLENE (MIRALAX) 17 GM PACK PO PRN (20:39)
[2021-12-22] MEDS ORDERED: ATORVASTATIN 10 MG TAB PO SCH (21:00)
[2021-12-22] MEDS: AMOXICILLIN 250 MG CAP PO SCH (21:33)
[2021-12-22] MEDS: amLODIPine BESYLATE 5 MG TAB PO SCH (21:33)
[2021-12-22] MEDS: METOPROLOL TARTRATE 50 MG TAB PO SCH (21:34)
[2021-12-23 06:48] LABS: Hematocrit (blood only) 44.9 % (40.1-51.0); Hemoglobin 15.5 g/dl (14.0-18.0); Mean Corpuscular Hgb Conc 34.5 g/dL (32.0-36.0); Mean Corpuscular Volume 92.6 fL (80.0-100.0); Mean Platelet Volume 10.4 fL (9.4-12.4); Platelet Count 263 K/uL (130-400); RDW Coefficient of Variation 12.8 % (11.5-14.5); RDW Standard Deviation 43.6 fL (36.4-46.3); Red Blood Count 4.85 M/uL (4.63-6.08); White Blood Count 8.83 K/ul (4.8-10.8)
[2021-12-23 07:42] LABS: BUN Creatinine Ratio 18.8 (10-20); Calcium 9.2 mg/dl (8.5-10.1); Chol HDL Ratio 4.2 (0-5); Creatinine Clr Calc Pharmacy 143.1 ml/min; Est GFR (African American) 121.1 ml/min; Est GFR (Non-African American) 104.5 ml/min; Potassium 3.7 mmol/L (3.5-5.1)
[2021-12-23] MEDS: AMOXICILLIN 250 MG CAP PO SCH (08:49)
[2021-12-23] MEDS: amLODIPine BESYLATE 5 MG TAB PO SCH (08:50)
[2021-12-23] MEDS: METOPROLOL TARTRATE 50 MG TAB PO SCH (08:50)
--- NOTE | 2021-12-23 08:59 | Cardiology Consultation ---
Date of Consultation December 23, 2021 Assessment & Plan (1) Hypertensive emergency: (2) Headache: (3) Elevated troponin: Plan Patient admitted for headache, chest tightness, LE calf pain. Negative chest CTA and venous duplex for PE/DVT. BP significantly elevated on arrival. Minimally elevated troponin, which remained flat, likely cardiac strain. Echo with normal LV systolic function, no wall motion abnormalities, moderate LVH. Since admission, hospitalist increased metoprolol to 50 mg BID and added amlodipine. Patient was already taking CCB with nifedipine. 2 CCB not advised. Will stop nifedipine. Titrate amlodipine as needed. He received both CCB meds this morning, so will not increase amlodipine. Add hydralazine 10 mg TID, titrate as needed. Continue metoprolol. Given future bariatric surgery, minimally elevated troponin, will benefit from outpatient nuclear stress test. will arrange upon discharge. If BP improves and feeling well later today, would anticipate discharge this afternoon. Case discussed with Dr. Smyth. Supervising Physician Co-Signing Physician Notes Patient was seen and personally examined. Presented with symptoms of head congestion chest fullness and hypertensive urgency Blood pressures are slowly improving. No evidence of acute coronary syndrome by echo and EKG with flat mild elevation of troponin. Echo and EKGs personally reviewed Plan as outlined above. Patient hemodynamically stable but needs further hypertensive control. We will discontinue nifedipine as above continue initiated amlodipine at 5 mg twice per day, hydralazine 10 mg 3 times daily to start. Patient would likely benefit from diuretic but chlorthalidone resulted in gouty flares in the past Okay for discharge with planned outpatient stress nuclear study, cardiology follow-up for hypertensive management. History of Present Illness Reason for Consultation: CP; Hypertension Requesting Physician: Dr. Hills Attending Physician: Dr. Smyth History of Present Illness Patient is a 46 year old male known to [facility], Dr. Hilario for history of Hypertension, obesity, NEO, abnormal EKG incomplete RBBB and LAFB. He was evaluated in the preop setting in September for preop bariatric surgery. He underwent echo demonstrating preserved LV systolic function, EF 60%, no significant valvular disease and mildly enlarged aortic root/ascending aorta 3.8 cm/3.9 cm respectively. Yesterday he presented to [facility] urgent care clinic with complaints of sinus congestion, chest tightness, ear pain, headache. Thought he had an upper respiratory infection. Due to his chest tightness and then reported LLE calf pain, he was sent to the ER for evaluation. He had recent extensive travel around the [facility] for work. 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 He also reports he may have missed a few doses of his medications with the travel. Per review, BP was not significantly elevated at urgent care around 140/90's. Upon arrival to ER, EKG demonstrated NSR with incomplete RBBB, LAFB and pulmonary disease pattern, unchanged from outpatient EKG. HS Troponin minimally elevated and flat. BP significantly elevated. Metoprolol was increased to 50 mg BID, losartan was continued, nifedipine was continued and amlodipine was added. He also received PRN IV labetalol, PRN IV enalapril. At time of consult, patient feeling ok. Headache still mild but improved from admission. Noted mild "chest soreness" this morning and Described as an "irritation". He denied actual chest pain or tightness. EKG was obtained without changes. BP elevated 2 hours after AM meds. He denies dizziness or lightheadedness. No sense of palpitations or tachypalpitations. No orthopnea, PND or increased lower extremity edema. Calf pain now improved. No evidence of DVT or PE on imaging on admission. Patient reports he has been exercising regularly prior to recent work travel and denied exertional chest pain or dyspnea. Allergies Allergy/AdvReac Type Severity Reaction Status Date / Time latex Allergy Mild Rash Verified 12/22/21 16:31 Home Medications Medication Instructions Recorded Confirmed Type amoxicillin 875 mg tablet 825 mg PO BID 12/22/21 12/22/21 History atorvastatin 10 mg tablet 10 mg PO HS 12/22/21 12/22/21 History losartan 100 mg tablet 100 mg PO DAILY 12/22/21 12/22/21 History metformin 500 mg tablet,extended 500 mg PO BID 12/22/21 12/22/21 History release 24 hr metoprolol tartrate 25 mg tablet 25 mg PO BID 12/22/21 12/22/21 History naltrexone 8 mg-bupropion 90 mg 1 tab PO DIRECTED 12/22/21 12/22/21 History tablet,extended release (Contrave) nifedipine 60 mg tablet,extended 60 mg PO DAILY 12/22/21 12/22/21 History release 24 hr ondansetron HCl 4 mg tablet 4 mg PO Q8 PRN Nausea 12/22/21 12/22/21 History valacyclovir 500 mg tablet 500 mg PO DAILY 12/22/21 12/22/21 History Patient History Medical History (Updated 12/22/21 @ 22:15 by Blas Colby DO) Acquired deviated nasal septum Elevated troponin HLD (hyperlipidemia) HTN (hypertension) No pertinent family history Surgical History No pertinent past surgical history Family History Other Heart disease Social History Smoking Status: Never smoker Second Hand Exposure: No; Hx Alcohol Use: No Hx Substance Use: No Preferred Language: Romansh Communication Ability: Effective Watch Assembler Required: No Beliefs That Will Affect Care: Episcopalian Episcopalian Beliefs: Roman Catholic - no pork Current Living Situation: Spouse and Family Current Living Situation Comment: Pt lives with family in 3 story home Other Information That Helps Us Care for You: No Feels Safe at Home: Yes Safety Concerns: Feels Safe At This Time Assistive Devices: None Review of Systems Review of Systems: All systems reviewed & are unremarkable except as noted in HPI & below Physical Exam Constitutional: WD/WN, vitals as above + obese; no acute distress Neck: trachea midline, no thyromegaly Respiratory: normal respiratory effort, lungs clear to auscultation Cardiovascular: Rate/Rhythm: regular rate and regular rhythm Heart Sounds: normal S1 and normal S2; no murmur Vessels: no JVD Extremities: no edema Gastrointestinal (Abdomen): normal bowel sounds, soft, nontender, no h epatosplenomegaly Skin: no rashes, warm and dry Neurologic: PERRL, EOMI, accommodation nl, no face palsy, no dysarthria Results & Data ([facility]) Vital Signs (Past 12 Hours) Vital Signs Temp Pulse Pulse Resp BP BP Pulse Ox 12/23/21 08:46 80 161/111 H 12/23/21 06:57 158/99 H 12/23/21 06:56 36.7 C 68 14 169/118 H 94 12/23/21 02:51 36.7 C 57 L 18 130/83 96 12/22/21 22:14 67 12/22/21 23:43 75 12/22/21 23:43 36.9 C 75 16 174/113 H 94 12/22/21 22:42 36.6 C 70 18 147/85 H 95 12/22/21 21:31 151/92 H O2 Del Method 12/23/21 08:46 12/23/21 06:57 12/23/21 06:56 Room Air 12/23/21 02:51 Room Air 12/22/21 22:14 12/22/21 23:43 12/22/21 23:43 Room Air 12/22/21 22:42 Room Air 12/22/21 21:31 Laboratory Results Cardiac Enzymes 12/22/21 12/22/21 12/22/21 Range/Units 13:43 15:22 18:22 AST TNP 20 Troponin I High Sens 34.0 H 31.7 H (0-20) pg/ml 12/22/21 12/23/21 Range/Units 23:56 06:08 AST Troponin I High Sens 30.8 H 30.9 H (0-20) pg/ml Coagulation 12/22/21 12/22/21 Range/Units 13:43 15:22 PT Cancelled 11.4 APTT Cancelled 25.5 Lipids 12/23/21 Range/Units 06:08 Triglycerides 194 H (0-150) mg/dl Cholesterol 186 (0-200) mg/dl HDL Cholesterol 44 mg/dl Cholesterol/HDL Ratio 4.2 (0-5) CBC 12/22/21 12/23/21 Range/Units 13:43 06:08 WBC 8.26 8.83 (4.8-10.8) K/ul RBC 5.39 4.85 (4.63-6.08) M/uL Hgb 17.3 15.5 (14.0-18.0) g/dl Hct 49.2 44.9 (40.1-51.0) % Plt Count 270 263 (130-400) K/uL Neut # (Auto) 5.76 (1.4-6.5) K/uL Lymph # (Auto) 1.60 (1.2-3.4) K/uL [place] # (Auto) 0.45 (0.24-0.82) K/uL Eos # (Auto) 0.37 (0-0.50) K/uL Baso # (Auto) 0.05 (0-0.2) K/uL Comprehensive Metabolic Panel 12/22/21 12/22/21 12/23/21 Range/Units 13:43 15:22 06:08 Sodium 139 141 (136-145) mmol/L Potassium TNP 3.9 3.7 Chloride 104 107 (98-107) mmol/L Carbon Dioxide 26 27 (21-32) mmol/L BUN 18 16 (6-23) mg/dl Creatinine 0.75 0.85 (0.6-1.4) mg/dl Glucose 113 H 87 (70-99(Fasting)) mg/dl Calcium 10.5 H 9.2 (8.5-10.1) mg/dl AST TNP 20 ALT 31 (7-52) U/L Alkaline Phosphatase 78 (34-104) U/L Total Protein 8.7 H (6.0-8.3) gm/dl Albumin 4.6 (3.4-5.0) gm/dl Intake and Output 12/22/21 12/23/21 12/23/21 22:59 06:59 14:59 Intake Total 500 / 500 Balance 500 / 500 Intake: IV 500 / 500 Sodium Chloride 0.9% 1000ML 500 500 / 500 ml @ 999 mls/hr IV .Q31M ONE Rx#:[id number] Other: Weight 123.7 kg 123.4 kg Weight Measurement Method Built in [facility] Diagnostic Findings Telemetry reviewed: NSR in the 70's. No arrhythmias Echo this admission: Normal LVEF Moderate LVH Diastolic dysfunction No significant valvular disease EKG on arrival: NSR with pulmonary disease pattern, LAFB, incomplete RBBB No change from previous Repeat EKG Normal sinus rhythm Left anterior fascicular block Minimal voltage criteria for LVH, may be normal variant No change from previous Venous duplex report reviewed - No DVT in left LE Chest CTA report reviewed: 1. No central or lobar pulmonary emboli. Remainder of pulmonary arteries suboptimally assessed due to suboptimal opacification. 2. No acute intrathoracic findings. 3. Moderate cardiomegaly. Head CTA: IMPRESSION: 1. No acute intracranial findings. 2. Unremarkable CTA of the head. Outpatient echo Oct 2021: Interpretation Summary The qualitative LV ejection fraction is 60-64% (normal). The LV wall thickness is moderately increased (concentric). The left ventricular diastolic function is moderately abnormal (grade II). Mild tricuspid regurgitation is present. The aortic root and proximal ascending aorta are borderline enlarged. Medications Administered Current Inpatient Medications Acetaminophen (Acetaminophen 325 Mg Tab) 650 mg PO Q4H PRN PRN Reason: Pain or Fever Stop: 01/21/22 20:38 Amlodipine Besylate (Amlodipine Besylate 5 Mg Tab) 2.5 mg PO BID MONICA Stop: 01/21/22 20:59 Last Admin: 12/23/21 08:50 Dose: 2.5 mg Amoxicillin (Amoxicillin 250 Mg Cap) 750 mg PO BID MONICA Stop: 01/01/22 21:59 Last Admin: 12/23/21 08:49 Dose: 750 mg Atorvastatin Calcium (Atorvastatin 10 Mg Tab) 10 mg PO HS MONICA Stop: 01/21/22 20:59 Last Admin: 12/22/21 21:34 Dose: 10 mg Labetalol HCl (Labetalol Hcl Iv 5 Mg/Ml 20ml) 10 mg IV Q6H PRN PRN Reason: SBP> 180 or DBP >100 Stop: 01/21/22 20:38 Losartan Potassium (Losartan Potassium 50 Mg Tab) 100 mg PO DAILY MONICA Stop: 01/22/22 08:59 Last Admin: 12/23/21 08:50 Dose: 100 mg Metoprolol Tartrate (Metoprolol Tartrate 50 Mg Tab) 50 mg PO BID MONICA Stop: 01/21/22 20:59 Last Admin: 12/23/21 08:50 Dose: 50 mg Ondansetron HCl (Ondansetron Inj 2 Mg/Ml 2 Ml Vial) 4 mg IV Q6H PRN PRN Reason: Nausea Stop: 01/21/22 20:38 Polyethylene Glycol (Polyethylene (Miralax) 17 Gm Pack) 17 gm PO DAILY PRN PRN Reason: Constipation Stop: 01/21/22 20:38 Valacyclovir HCl (Valacyclovir Hcl 500 Mg Tablet) 500 mg PO DAILY MONICA Stop: 01/22/22 08:59 Last Admin: 12/23/21 08:49 Dose: 500 mg (1) Headache Headache chronicity pattern: acute headache Headache type: unspecified Intractability: not intractable Qualified Code(s): R51.9 - Headache, unspecified
[2021-12-23] MEDS ORDERED: NIFEdipine EXTENDED REL 30 MG TABCR PO SCH (09:00)
[2021-12-23] MEDS ORDERED: LOSARTAN POTASSIUM 50 MG TAB PO SCH (09:00)
[2021-12-23] MEDS ORDERED: valACYclovir HCL 500 MG TABLET PO SCH (09:00)
[2021-12-23 10:24] LABS: Estimated Average Glucose 100 mg/dl; Hemoglobin A1C 5.1 % (4.5-5.6)
[2021-12-23] MEDS: hydrALAZINE 10 MG TAB PO SCH ×2 (11:16→14:18)
--- NOTE | 2021-12-23 14:07 | Discharge Summary ---
Discharge Summary Date of Service December 23, 2021 Notes For Next Care Provider Patient needs follow up with Cardiology Continue management of hypertension and other chronic medical problems Medication Changes From Visit Nifedipine stopped and amlodipine started per Foreign Exchange Services Manager recs Hydralazine added to antihypertensives Admission HPI Per Admitting Provider This is a 46-year-old male with past medical history of uncontrolled hypertension, NEO not on CPAP, dyslipidemia, venous stasis of bilateral lower extremities and other medical problems listed below who presents with headache that started yesterday. Pain is throbbing and mainly located on back side of head. Associated nausea and burning across his chest that is constant and nonradiating. Also endorses rhinorrhea, congestion and sore throat over the past few days. Was seen at [facility] earlier today for burning in chest, nausea, headache and ear pain. Was started on amoxicillin earlier today for left ear infection and directed to ED for further evaluation of chest discomfort, nausea. Denies any fever, chills, SOB, vomiting, abdominal pain, dysuria, diarrhea or constipation. Endorses taking his medications as prescribed including 3 antihypertensives. Diagnosed with NEO in the past but could not tolerate CPAP 2/2 claustrophobia. Patient is a non-smoker. Father with history o f CAD. Of note, patient was admitted in 2019 for hypertensive crisis in setting of medication noncompliance. At that time 2D echo with moderate concentric LVH without wall motion abnormalities, preserved EF of 60 to 65% and grade 2 diastolic dysfunction. Admission Exam Per Admitting Provider General Appearance:Obese, no apparent distress Head: normocephalic, Atraumatic Eyes: normal inspection, EOMI Neck: supple, Trachea midline Respiratory/Chest: Normal breath sounds, CTA, No accessory muscle use Cardiovascular: S1, S2, No murmur Abdomen/GI:Soft, Non tender, Bowel sounds present Extremities/Musculoskeletal:normal inspection, no edema Neurologic/Psych:AAOX3, grossly no focal neurological deficits Skin: normal color, warm Principal Dx & Hospital Course #1 = Principal Diagnosis (1) Hypertensive emergency: (2) Elevated troponin: (3) Suppurative otitis media of left ear without rupture of tympanic membrane: (4) NEO (obstructive sleep apnea): (5) HLD (hyperlipidemia): (6) HTN (hypertension): Plan This is a 46-year-old male with past medical history of uncontrolled hypertension, NEO not on CPAP, dyslipidemia, venous stasis of bilateral lower extremities and other medical problems listed below who presents with headache that started yesterday and was found to have hypertensive urgency. Hypertensive emergency Headache Atypical chest pain BP 162/117 on admission, peaked at 177/114 Given IV labetalol and enalapril in ED States he is compliant with home regimen of losartan 100 mg, metoprolol tartrate 25 twice daily, nifedipine 60 mg daily. Was on chlorthalidone in the past but stopped due to gout episode History of hypertensive urgency in the past, last admitted in 2019 CTA head/neck unremarkable CTA chest negative for PE. Moderate cardiomegaly noted Was evaluated by Foreign Exchange Services Manager Nifedipine discontinued. Amlodipine 10mg daily started Hydralazine 10mg TID added to regimen Elevated troponin Likely demand ischemia 2/2 hypertensive emergency Has atypical chest pain presenting as constant burning High sensitive troponin initially 34 -> 31.7 Otitis media of left ear URI Was started on amoxicillin course BID through 01/01 following urgent care visit Upper resp panel negative for covid, flu, rsv, parainfluenza, rhinovirus Hyperlipidemia Continue atorvastatin Morbid obesity BMI 39. Following with Weight mgmt clinic, currently on Contrave Discharge Exam Constitutional + well hydrated and + obese; no acute distress Eyes PERRL, conjunctivae normal, anicteric sclerae ENMT external ear and nose normal, oropharynx normal Respiratory normal respiratory effort, lungs clear to auscultation Cardiovascular Rate/Rhythm: regular rate and regular rhythm S1 S2 Gastrointestinal (Abdomen) normal bowel sounds, soft, nontender, no hepatosplenomegaly Musculoskeletal no cyanosis or clubbing, extremities motor strength 5/5 Neurologic PERRL, EOMI, accommodation nl, no face palsy, no dysarthria Psychiatric A+Ox3, euthymic affect Updated Medication List Medication Instructions Recorded Confirmed Type amoxicillin 875 mg tablet 825 mg PO BID 12/22/21 12/22/21 History atorvastatin 10 mg tablet 10 mg PO HS 12/22/21 12/22/21 History losartan 100 mg tablet 100 mg PO DAILY 12/22/21 12/22/21 History metformin 500 mg tablet,extended 500 mg PO BID 12/22/21 12/22/21 History release 24 hr metoprolol tartrate 25 mg tablet 25 mg PO BID 12/22/21 12/22/21 History naltrexone 8 mg-bupropion 90 mg 1 tab PO DIRECTED 12/22/21 12/22/21 History tablet,extended release (Contrave) ondansetron HCl 4 mg tablet 4 mg PO Q8 PRN Nausea 12/22/21 12/22/21 History valacyclovir 500 mg tablet 500 mg PO DAILY 12/22/21 12/22/21 History amlodipine 10 mg tablet 10 mg PO DAILY #30 tabs 12/23/21 Rx hydralazine 10 mg tablet 10 mg PO TID 30 days #90 tabs 12/23/21 Rx Hospital Stay Data Consultations 12/22/21 18:33 ED Decision to Admit Stat 12/23/21 07:00 Consult Cardiology Routine Diagnostic Imagining Performed 12/22/21 14:59 CT angio head wo/w Stat No acute intracranial hemorrhage, midline shift or mass effect is present. Ventricular system is normal. Basal cisterns are patent. There are no extra- axial collections. There are no findings to suggest acute dural sinus thrombosis or acute territorial infarct. The appearance of the brain is unchanged. There are no significant calvarial abnormalities. The bilateral M1, M2, A1 and A2 segments are patent. The posterior circulation is intact. There is no intracranial aneurysm. No central vessel occlusion is present. Major dural sinuses are patent. IMPRESSION: 1. No acute intracranial findings. 2. Unremarkable CTA of the head. 12/22/21 15:22 CT angio chest PE protocol Stat No central or lobar pulmonary emboli are identified. The segmental and subsegmental pulmonary arteries are suboptimally assessed due to suboptimal opacification. Moderate cardiomegaly is noted. There is no pericardial effusion. No thoracic aortic dissection is present. There is no thoracic lymphadenopathy. No pneumothorax or pleural effusion is present. There is no consolidation to suggest pneumonia. Groundglass opacities favor atelectasis. There is mild mosaic attenuation. No acute fracture within the visualized bony thorax is noted. The CTA of the head will be reported separate. Major vasculature of the neck appears patent. There is no cervical lymphadenopathy. There is no fluid collection within the neck. IMPRESSION: 1. No central or lobar pulmonary emboli. Remainder of pulmonary arteries suboptimally assessed due to suboptimal opacification. 2. No acute intrathoracic findings. 3. Moderate cardiomegaly 12/22/21 15:23 US venous doppler LE LT Stat The left common femoral, superficial femoral and popliteal veins were compressible. Augmentation was normal. Flow was shown within the deep calf vessels. IMPRESSION: No evidence of deep venous thrombus within the left lower extremity. Pending Results Patient Have Any Pending Studies at Discharge: No Discharge Instructions Given to Patient (Per Discharging Provider) Mr Alia Hamlin came to the hospital complaining of headache and some chest pain. You were evaluated and noted to have significantly elevated blood pressure. Adjustments were made to your Blood pressure medicines by the Foreign Exchange Services Manager: -Stop taking nifedipine -Start taking amlodipine -Start taking hydralazine 10mg three times a day Continue taking your Losartan and metoprolol. Please keep a record of your Home BP measurements for your Primary Doctor Please ensure follow up with your Primary Doctor and Foreign Exchange Services Manager as discussed. It was a pleasure taking care of you Total Time Total Time Spent Total Time Spent (In Minutes): 45 Total Time Includes: Examination of the Patient, Discharge Planning, Medication Reconciliation and Communication With Other Providers
--- NOTE | 2021-12-23 23:50 | Electrocardiogram Report ---
Test Reason : Blood Pressure : / mmHG Vent. Rate : 095 BPM Atrial Rate : 095 BPM P-R Int : 192 ms QRS Dur : 100 ms QT Int : 364 ms P-R-T Axes : 032 -61 034 degrees QTc Int : 457 ms Normal sinus rhythm Possible Left atrial enlargement Incomplete right bundle branch block Left anterior fascicular block Anterior infarct Abnormal ECG When compared with ECG of 20-MAR-2021 17:16, No significant change was found Confirmed by Damian Longoria ([id number]) on 12/23/2021 11:50:09 PM Referred By: Confirmed By:Damian Longoria
--- NOTE | 2021-12-24 05:22 | Electrocardiogram Report ---
Test Reason : Blood Pressure : / mmHG Vent. Rate : 054 BPM Atrial Rate : 054 BPM P-R Int : 200 ms QRS Dur : 112 ms QT Int : 436 ms P-R-T Axes : -06 -50 006 degrees QTc Int : 413 ms Sinus bradycardia Left anterior fascicular block Minimal voltage criteria for LVH, may be normal variant Poor R wave progression, consider anterior [place] vs. lead placement vs. LVH Abnormal ECG When compared with ECG of 22-DEC-2021 13:36, Vent. rate has decreased BY 41 BPM Incomplete right bundle branch block is no longer Present Confirmed by Damian Longoria ([id number]) on 12/24/2021 5:22:25 AM Referred By: REFERRED SELF Confirmed By:Damian Longoria
--- NOTE | 2021-12-24 05:42 | Electrocardiogram Report ---
Test Reason : Blood Pressure : / mmHG Vent. Rate : 066 BPM Atrial Rate : 066 BPM P-R Int : 202 ms QRS Dur : 110 ms QT Int : 418 ms P-R-T Axes : 010 -54 015 degrees QTc Int : 438 ms Normal sinus rhythm Left anterior fascicular block Minimal voltage criteria for LVH, may be normal variant Poor R wave progression, consider anterior CT vs. lead placement vs. LVH Abnormal ECG When compared with ECG of 23-DEC-2021 05:42, No significant change was found Confirmed by Damian Longoria ([id number]) on 12/24/2021 5:42:12 AM Referred By: REFERRED SELF Confirmed By:Damian Longoria
[2021-12-26 18:07] LABS: Babesia microti DNA Not Detected (Not Detected)
== END 2021-12-23 15:54 | disposition home or self-care (01) ==
LOC: ED 13:25 → 2S 18:57 → SUATTDRO 18:57 → INTOOBSV 18:57 → 2S 20:13

== ENCOUNTER 2022-03-20 02:39 | Observation (INO) ==
[2022-03-20] MEDS ORDERED: hydrALAZINE HCL 20 MG/ML VIAL IV STA (02:46)
--- NOTE | 2022-03-20 03:01 | Emergency Department Note ---
History of Present Illness General Chief complaint: Chest Pain Stated complaint: CHEST PAIN, HYPERTENSTION, PAIN IN SHOULDER/NECK Time Seen by Provider: 03/20/22 02:41 History of Present Illness Maximum Pain Intensity: 5 46-year-old male with a history of malignant hypertension is on losartan, hydralazine, amlodipine, presents emergency department with increased blood pressure at home of 180/130 today. Patient was seen in our emergency department 2 nights ago for similar presentation. Patient's recently had changes. Patient states that he took 4 doses of hydralazine his amlodipine and losartan prior to arrival. Patient continues to complain of increased blood pressure and left- sided chest pain. There are no other mitigating or alleviating factors. The patient denies shortness of breath nausea vomiting diarrhea or any other complaints Home Medications Medication Instructions Recorded Confirmed Type atorvastatin 10 mg tablet 10 mg PO HS 12/22/21 03/19/22 History losartan 100 mg tablet 100 mg PO DAILY 12/22/21 03/19/22 History metformin 500 mg tablet,extended 500 mg PO BID 12/22/21 03/19/22 History release 24 hr metoprolol tartrate 25 mg tablet 25 mg PO BID 12/22/21 03/19/22 History ondansetron HCl 4 mg tablet 4 mg PO Q8 PRN Nausea 12/22/21 03/19/22 History valacyclovir 500 mg tablet 500 mg PO DAILY PRN breakouts 12/22/21 03/19/22 History amlodipine 10 mg tablet 10 mg PO DAILY #30 tabs 12/23/21 03/19/22 Rx hydralazine 10 mg tablet 10 mg PO TID 03/02/22 03/19/22 History Allergies Allergy/AdvReac Type Severity Reaction Status Date / Time latex Allergy Mild Rash Verified 03/02/22 22:50 Past Med/Surg History Medical History Acquired deviated nasal septum Elevated troponin HLD (hyperlipidemia) HTN (hypertension) Surgical History No pertinent past surgical history Family History Other Heart disease Social History Smoking Status: Never smoker Second Hand Exposure: No; Hx Alcohol Use: No Hx Substance Use: No Preferred Language: Haitian Communication Ability: Effective Building Maintenance Repairer Required: No Beliefs That Will Affect Care: Adventism Adventism Beliefs: Uatsdin - no pork Current Living Situation: Spouse and Family Current Living Situation Comment: Pt lives with family in 3 story home Feels Safe at Home: Yes Assistive Devices: None Review of Systems A total of 10 systems reviewed and were otherwise negative Constitutional: no fever Respiratory: no cough Cardiovascular: + chest pain Physical Exam Vital Signs Vital Signs - 24 hr 03/20/22 02:42 03/20/22 03:03 03/20/22 03:00 Temperature 37.3 C Temperature Source Temporal Artery Scan Pulse Rate 93 H 96 H Pulse Rate [Radial] Pulse Rhythm Regular Pulse Rhythm [Radial] Pulse Strength [Radial] Respiratory Rate 18 Respiratory Effort / Characteristics Non-Labored Spontaneous Respiratory Depth Normal Respiratory Pattern Blood Pressure 213/133 H Blood Pressure [Right Arm] 170/125 H Blood Pressure Mean 159 Blood Pressure Mean [Right Arm] 140 Blood Pressure Position [Right Arm] Pulse Oximetry 95 98 Oxygen Delivery Method Room Air Room Air Sepsis Recent Fever Within 48 Hours No Sepsis New/Unexplained Change in Mental Status No Sepsis Action Taken by Nursing No Action Required 03/20/22 03:32 03/20/22 03:51 Temperature Temperature Source Pulse Rate Pulse Rate [Radial] 103 H Pulse Rhythm Pulse Rhythm [Radial] Regular Pulse Strength [Radial] Normal Respiratory Rate 18 Respiratory Effort / Characteristics Non-Labored Respiratory Depth Normal Respiratory Pattern Regular Blood Pressure Blood Pressure [Right Arm] 170/105 H 155/105 H Blood Pressure Mean Blood Pressure Mean [Right Arm] 126 121 Blood Pressure Position [Right Arm] Lying Lying Pulse Oximetry 97 Oxygen Delivery Method Room Air Sepsis Recent Fever Within 48 Hours Sepsis New/Unexplained Change in Mental Status Sepsis Action Taken by Nursing GENERAL: Patient is awake alert in no acute distress patient is resting comfortably and showing no signs of anxiety EYES: The conjunctivae are clear. The pupils are round and reactive. EARS, NOSE, MOUTH AND THROAT: The nose is without any evidence of any deformity. Mucous membranes are moist. Tongue is midline. NECK: The neck is nontender and supple. RESPIRATORY: Normal respiratory effort is noted there is no evidence of wheezing rhonchi or rales CARDIOVASCULAR: Regular rate and rhythm noted there no murmurs rubs or gallops normal S1 normal S2. GASTROINTESTINAL: The abdomen is soft. Abdomen is nontender. BACK: No midline tenderness or or step-off noted range of motion in flexion extension as well as rotation no signs of muscle spasm noted MUSCULOSKELETAL/EXTREMITIES: There is no evidence of gross deformity full range of motion is noted in the hips and shoulders. SKIN: There is no obvious evidence of any rash. There are no petechiae, pallor or cyanosis noted. NEUROLOGIC: Patient is awake alert and oriented x3 strength is symmetric PSYCH: Mildly anxious Course Reevaluation(s) Reevaluation #1: Patient was given 2 doses of IV hydralazine which decreased his blood pressure. Patient was having chest pain patient was also given aspirin patient has a slight elevation in his troponin. Patient is resting comfortably on repeat examination Time: 04:50 Consultations Consultation #1: [facility] for hypertensive urgency and chest pain Time: 04:50 Administered Medications Discontinued Medications Aspirin (Aspirin Chew 324 Mg) 324 mg PO NOW STA Stop: 03/20/22 03:57 Last Admin: 03/20/22 04:30 Dose: 324 mg Documented By: LATOSHA Hydralazine HCl (Hydralazine Hcl 20 Mg/Ml Vial) 10 mg IV NOW STA Stop: 03/20/22 02:47 Last Admin: 03/20/22 02:57 Dose: 10 mg Documented By: LATOSHA Hydralazine HCl (Hydralazine Hcl 20 Mg/Ml Vial) 5 mg IV NOW ONE Stop: 03/20/22 03:28 Last Admin: 03/20/22 03:29 Dose: 5 mg Documented By: LATOSHA Critical Care Time Critical Care Time: Yes Total Critical Care Time: 35 I have personally spent greater than 35 minutes of critical care time in the direct management of this patient. This includes bedside care, interpretation of diagnostic studies, and testing, discussion with consultants, patient, and family members, and other required patient management activities. These minutes are in excess of all separately billable procedures. Medical Decision Making Medical Records Attestation: I reviewed the patient's medical records. Home Medications Current Medication List: was personally reviewed by me Laboratory Data Attestation: I reviewed the patient's lab results. Patient has a slight elevated troponin 03/20/22 02:59 03/20/22 02:59 Lab Results 03/20/22 03/20/22 03/20/22 Range/Units 02:59 02:59 03:55 WBC 8.83 (4.8-10.8) K/ul RBC 5.12 (4.63-6.08) M/uL Hgb 16.3 (14.0-18.0) g/dl Hct 46.2 (40.1-51.0) % MCV 90.2 (80.0-100.0) fL MCH 31.8 (25.0-34.0) pg MCHC 35.3 (32.0-36.0) g/dL RDW Std Deviation 39.7 (36.4-46.3) fL RDW Coeff of Shabana 12.1 (11.5-14.5) % Plt Count 278 (130-400) K/uL MPV 10.4 (9.4-12.4) fL Immature Gran % (Auto) 0.3 % Neut % (Auto) 65.1 % Lymph % (Auto) 22.5 % [place] % (Auto) 7.6 % Eos % (Auto) 3.9 % Baso % (Auto) 0.6 % Neut # (Auto) 5.75 (1.4-6.5) K/uL Lymph # (Auto) 1.99 (1.2-3.4) K/uL [place] # (Auto) 0.67 (0.24-0.82) K/uL Eos # (Auto) 0.34 (0-0.50) K/uL Baso # (Auto) 0.05 (0-0.2) K/uL Immature Gran # (Auto) 0.03 H (0.00-0.02) K/uL Sodium 139 (136-145) mmol/L Potassium 3.7 (3.5-5.1) mmol/L Chloride 105 (98-107) mmol/L Carbon Dioxide 26 (21-32) mmol/L Anion Gap 8 (3-11) BUN 15 (6-23) mg/dl Creatinine 0.87 (0.6-1.4) mg/dl Est Cr Clr Drug Dosing 130.1 ml/min Est GFR ( Amer) 120.0 ml/min Est GFR (Non-Af Amer) 103.5 ml/min BUN/Creatinine Ratio 17.2 (10-20) Glucose 134 H (70-99(Fasting)) mg/dl Calcium 9.4 (8.5-10.1) mg/dl Total Bilirubin 0.8 (0.2-1.0) mg/dl AST 20 (13-39) U/L ALT 25 (7-52) U/L Alkaline Phosphatase 77 (34-104) U/L Troponin I High Sens 35.6 H (0-20) pg/ml Total Protein 7.3 (6.0-8.3) gm/dl Albumin 4.4 (3.4-5.0) gm/dl Globulin 2.9 (2.5-4.0) gm/dl Albumin/Globulin Ratio 1.5 (0.9-2) SARS-CoV-2, RNA, NAAT NEGATIVE (NEGATIVE) Imaging Data Attestation: I personally reviewed and interpreted this imaging study as follows: My Impression: Chest x-ray interpreted by me negative for infiltrate normal mediastinum no obvious effusion ECG Data Attestation: I personally reviewed and interpreted this ECG as follows: Additional Comments: Interpreted by me normal sinus rhythm rate of 89 incomplete right bundle branch, left anterior hemiblock, left ventricular hypertrophy, no obvious ST segment elevation or depression, unchanged from prior EKG Blood Pressure Blood Pressure Findings: Elevated blood pressure (213/133) MDM Narrative Medical decision making differential diagnosis includes hypertensive emergency, urgency, malignant hypertension, pain response, cardiac event. Plan is to check labs EKG, give antihypertensive Nurses notes were reviewed and appreciated by me External medical records were reviewed by me Patient is at risk for life-threatening event due to hypertensive urgency Patient will be admitted for hypertensive urgency with chest pain Patient will need IV antihypertensives Patient has a slight elevation in his troponin Heart score is moderate Case was accepted by [facility] hospitalist I do not suspect the patient have a thoracic aortic dissection or pulmonary embolism at this time. Patient may be showing signs of end organ ischemia and therefore would benefit from inpatient admission Critical care time is 35 minutes Impression & Plan Hypertensive urgency, Chest pain Discharge Plan Visit Data Chief Complaint: Chest Pain Stated Complaint: CHEST PAIN, HYPERTENSTION, PAIN IN SHOULDER/NECK ED Provider: Marco A Stanford Discharge Problem: Hypertensive urgency, Chest pain Patient Disposition: Admitted As Inpatient Forms Stand Alone Forms: My [facility] [place] Prescriptions Prescriptions: No Action hydralazine 10 mg tablet 10 mg PO TID atorvastatin 10 mg tablet 10 mg PO HS ondansetron HCl 4 mg tablet 4 mg PO Q8 PRN (Reason: Nausea) valacyclovir 500 mg Tablet 500 mg PO DAILY PRN (Reason: breakouts) metformin 500 mg tablet extended release 24 hr 500 mg PO BID metoprolol tartrate 25 mg tablet 25 mg PO BID losartan 100 mg tablet 100 mg PO DAILY amlodipine 10 mg tablet 10 mg PO DAILY Qty: 30 0RF Referrals Referrals: Grzegorz Martinez DO [Primary Care Provider] -
[2022-03-20 03:15] LABS: Basophils # (auto) 0.05 K/uL (0-0.2); Basophils % (auto) 0.6 %; Eosinophils # (auto) 0.34 K/uL (0-0.50); Eosinophils % (auto) 3.9 %; Hematocrit (blood only) 46.2 % (40.1-51.0); Hemoglobin 16.3 g/dl (14.0-18.0); Immature Granulocytes # (auto) 0.03 K/uL (0.00-0.02); Immature Granulocytes % (auto) 0.3 %; Lymphocytes # (auto) 1.99 K/uL (1.2-3.4); Lymphocytes % (auto) 22.5 %; Mean Corpuscular Hemoglobin 31.8 pg (25.0-34.0); Mean Corpuscular Hgb Conc 35.3 g/dL (32.0-36.0); Mean Corpuscular Volume 90.2 fL (80.0-100.0); Mean Platelet Volume 10.4 fL (9.4-12.4); Monocytes # (auto) 0.67 K/uL (0.24-0.82); Monocytes % (auto) 7.6 %; Neutrophils # (auto) 5.75 K/uL (1.4-6.5); Neutrophils % (auto) 65.1 %; Platelet Count 278 K/uL (130-400); RDW Coefficient of Variation 12.1 % (11.5-14.5); RDW Standard Deviation 39.7 fL (36.4-46.3); Red Blood Count 5.12 M/uL (4.63-6.08); White Blood Count 8.83 K/ul (4.8-10.8)
[2022-03-20] MEDS ORDERED: hydrALAZINE HCL 20 MG/ML VIAL IV ONE (03:27)
[2022-03-20 03:32] LABS: Albumin Level 4.4 gm/dl (3.4-5.0); Bilirubin,Total 0.8 mg/dl (0.2-1.0); Calcium 9.4 mg/dl (8.5-10.1); Potassium 3.7 mmol/L (3.5-5.1)
[2022-03-20 03:37] LABS: Albumin Globulin Ratio 1.5 (0.9-2); BUN Creatinine Ratio 17.2 (10-20); Creatinine Clr Calc Pharmacy 130.1 ml/min; Est GFR (Non-African American) 103.5 ml/min; Globulin 2.9 gm/dl (2.5-4.0); Total Protein 7.3 gm/dl (6.0-8.3)
[2022-03-20 03:42] LABS: Troponin I High Sensitivity 35.6 pg/ml (0-20)
[2022-03-20] MEDS ORDERED: ASPIRIN CHEW 324 MG PO STA (03:56)
[2022-03-20] MEDS ORDERED: LABETALOL HCL IV 5 MG/ML 20ML IV STA (04:50)
--- NOTE | 2022-03-20 07:14 | History and Physical Report ---
DATE OF ADMISSION: 03/20/2022 CHIEF COMPLAINT: Hypertensive urgency and chest pain. HISTORY OF PRESENT ILLNESS: This is a 46-year-old male with past medical history significant for obstructive sleep apnea, seasonal allergic rhinitis, hyperlipidemia, hypertension, venous stasis of both lower extremities, obesity, right rotator cuff tendinitis, and erectile dysfunction, who presents with hypertensive urgency and chest pain. The patient says he took his medications of amlodipine, losartan, and hydralazine, but his blood pressure was running high in the 180s at home and also noted some left-sided chest pain, which was tender in that area when he came in, and later, he also had some left-sided neck pain, but that all resolved now. Currently, he is sleeping, but arousable. Denies any headache. No blurred visions. No earache. No runny nose. No sore throat. No cough. No fevers. No nausea. No abdominal pain now. No shortness of breath. Normal bowel and bladder movements. No swelling in the legs. Recently seen by cardiology on 03/18/2022 and his metoprolol was stopped because it was not helping his blood pressure and there was a plan to start on Coreg if needed. The patient had nuclear stress test in January of 2022, and as he had significant hypertension, stress test portion was not performed and it was nonischemic. ALLERGIES: LATEX. PAST MEDICAL HISTORY: As mentioned above. PAST SURGICAL HISTORY: EGD. MEDICATIONS: The patient is on amlodipine 10 mg p.o. daily, atorvastatin 10 mg p.o. at bedtime, hydralazine 25 mg p.o. t.i.d., losartan 100 mg p.o. daily, metformin 500 mg p.o. b.i.d., semaglutide 0.5 mg subcutaneous weekly, and valacyclovir 500 mg daily p.r.n. FAMILY HISTORY: Significant for no known problems in father and mother. SOCIAL HISTORY: , no smoking, no alcohol, and no drug use. REVIEW OF SYSTEMS: As per HPI. Rest of the review of systems is negative. PHYSICAL EXAMINATION: GENERAL: The patient is obese, not in acute distress. VITAL SIGNS: Temperature 37.3, pulse 80, respiratory rate 17, blood pressure was 213/133 when he came in, currently 149/99; and oxygen 93% on room air. HEENT: Pupils equal, round, and reactive to light. Oral mucosa moist. NECK: No JVD. No neck masses. CARDIOVASCULAR: S1 and S2 heard. Regular rate and rhythm. No murmur. No gallop. RESPIRATORY SYSTEM: Normal AP diameter. No accessory muscle use. No wheezing. No crackles. ABDOMEN: Soft, bowel sounds present, nontender, no distention. CENTRAL NERVOUS SYSTEM: Cranial nerves II through XII are grossly intact, nonfocal. EXTREMITIES: No edema. No erythema. LABORATORY DATA: WBC is 8.8, hemoglobin 16.3, hematocrit 46.2, and platelets 278. Sodium 139, potassium 3.7, chloride 105, bicarbonate 26, BUN 15, creatinine 0.8, serum glucose 134, and calcium 9.4. Total bilirubin 0.8, AST 20, ALT 25, and alkaline phosphatase 77. Troponin I high sensitivity 35.6. SARS-CoV-2 rapid test negative. IMAGING DATA: ECG: Normal sinus rhythm at a rate of 89, incomplete right bundle-branch block, left anterior fascicular block, no significant change was found. ASSESSMENT AND PLAN: This is a 46-year-old male, who presents with hypertensive urgency and chest pain. 1. Hypertensive urgency. The patient has a history of uncontrolled hypertension, currently on amlodipine 10 mg, hydralazine 25 mg p.o. tid, and losartan 100 mg p.o. daily. Recently, his metoprolol was stopped because it was not helping his blood pressure and there is plan to start Coreg. He received about 15 mg IV hydralazine in the ER, but still his blood pressure was still in the 180s. We will give a dose of labetalol, admit to tele floor, continue his home medication, place him on IV labetalol p.r.n., and consult cardiology for further recommendations. 2. Chest pain, currently resolved. His EKG is okay. His troponin is mildly elevated, probably demand ischemia. We will follow serial cardiac enzymes. The patient had a negative nuclear stress test. We will keep him n.p.o. until seen by cardiology. 3. Obstructive sleep apnea on dental appliance and it is working fine. He is okay to use CPAP while in the hospital. 4. History of hyperlipidemia, on statin. 5. History of diabetes. We will hold his metformin and place on sliding scale. 6. Obesity. Needs counseling. 7. Deep venous thrombosis prophylaxis, sequential compression devices for now. DISPOSITION: Admit to tele floor. Expect to discharge home and follow up with family doctor. Job ID: [id number] DIMITRI
--- NOTE | 2022-03-20 07:50 | XRay Report ---
XR chest 1V portable CLINICAL HISTORY: Chest pain, nonspecific TECHNIQUE: Single frontal radiograph of the chest was obtained. Comparison: Comparison is made to chest radiograph 03/18/2022 FINDINGS: Exam is limited by underpenetration. The cardiomediastinal silhouette is stable. The lungs are clear. No evidence of pleural effusion or pneumothorax. IMPRESSION: No acute chest disease. ACT 112: Negative or not required by law. Electronically signed by: Enrique Zepeda M.D. 03/20/2022 7:48 AM
[2022-03-20] MEDS ORDERED: CARBOHYDRATES FOR HYPOGLYCEMIA PO PRN (08:02)
[2022-03-20] MEDS ORDERED: ACETAMINOPHEN 325 MG TAB PO PRN (08:02)
[2022-03-20] MEDS ORDERED: DEXTROSE 50% 50 ML SYRINGE IV PRN (08:02)
[2022-03-20] MEDS ORDERED: NITROGLYCERIN SL 0.4 MG/TAB TAB SL PRN (08:02)
[2022-03-20] MEDS ORDERED: GLUCOSE 10 TAB/TUBE PO PRN (08:02)
[2022-03-20] MEDS ORDERED: GLUCAGON FOR INJ 1 MG VIAL SQ PRN (08:02)
[2022-03-20] MEDS ORDERED: LABETALOL HCL IV 5 MG/ML 20ML IV PRN (08:02)
[2022-03-20] MEDS ORDERED: GLUCOSE 40% GEL 15 GM TUBE PO PRN (08:02)
[2022-03-20] MEDS ORDERED: POLYETHYLENE (MIRALAX) 17 GM PACK PO PRN (08:02)
[2022-03-20 08:30] LABS: Basophils # (auto) 0.04 K/uL (0-0.2); Basophils % (auto) 0.5 %; Eosinophils # (auto) 0.31 K/uL (0-0.50); Eosinophils % (auto) 3.8 %; Hematocrit (blood only) 44.6 % (40.1-51.0); Hemoglobin 15.5 g/dl (14.0-18.0); Immature Granulocytes # (auto) 0.04 K/uL (0.00-0.02); Immature Granulocytes % (auto) 0.5 %; Lymphocytes # (auto) 1.58 K/uL (1.2-3.4); Lymphocytes % (auto) 19.3 %; Mean Corpuscular Hemoglobin 31.6 pg (25.0-34.0); Mean Corpuscular Hgb Conc 34.8 g/dL (32.0-36.0); Mean Corpuscular Volume 90.8 fL (80.0-100.0); Mean Platelet Volume 10.1 fL (9.4-12.4); Monocytes # (auto) 0.58 K/uL (0.24-0.82); Monocytes % (auto) 7.1 %; Neutrophils # (auto) 5.62 K/uL (1.4-6.5); Neutrophils % (auto) 68.8 %; Platelet Count 258 K/uL (130-400); RDW Coefficient of Variation 12.2 % (11.5-14.5); Red Blood Count 4.91 M/uL (4.63-6.08); White Blood Count 8.17 K/ul (4.8-10.8)
[2022-03-20 09:01] LABS: Troponin I High Sensitivity 36.7 pg/ml (0-20)
[2022-03-20 09:03] LABS: Potassium 3.9 mmol/L (3.5-5.1)
[2022-03-20 09:09] LABS: BUN Creatinine Ratio 16.7 (10-20); Creatinine Clr Calc Pharmacy 134.7 ml/min; Est GFR (African American) 121.7 ml/min
[2022-03-20] MEDS: INSULIN ASPART PER UNIT SC SCH ×4 (09:25→20:49)
[2022-03-20 10:11] LABS: Estimated Average Glucose 108 mg/dl; Hemoglobin A1C 5.4 % (4.5-5.6)
[2022-03-20] MEDS: amLODIPine BESYLATE 5 MG TAB PO SCH (10:19)
[2022-03-20] MEDS: hydrALAZINE HCL 25 MG TAB PO SCH ×3 (10:19→19:53)
[2022-03-20] MEDS: LOSARTAN POTASSIUM 50 MG TAB PO SCH (10:20)
--- NOTE | 2022-03-20 12:11 | Communication Note ---
Date of Service: March 20, 2022 Patient seen and examined. Patient reports chest pain is currently resolved. Reports some headache. Exam is notable for obese man in no obvious distress, no chest wall tenderness, normal sinus rhythm Lab today is unremarkable. Troponin is mildly elevated but flat Chest x-ray did not show any acute abnormalities Poorly controlled hypertension Chest pain Patient's chest pain likely related to poorly controlled hypertension. Possible concern for proper medication adherence. Reviewed outpatient cardiology office note from a few days ago. Discussed with soil fertility extension specialist Will continue educating patient on medications and need for proper blood pressure control. Continue current hypertensives including amlodipine, hydralazine, losartan and Coreg Agree with other plans as detailed in H&P this morning
--- NOTE | 2022-03-20 12:52 | Cardiology Consultation ---
Date of Consultation March 20, 2022 Assessment & Plan (1) Hypertensive emergency: (2) Headache: (3) Chest pain: (4) NEO (obstructive sleep apnea): (5) Elevated troponin: (6) Hypertensive heart disease: Plan I reviewed the patient's echocardiogram and he has changes consistent with hypertensive heart disease due to longstanding hypertension which has been undertreated. I had a long discussion with the patient and his . Continue to be on the medications that are prescribed to him. It would be helpful for him to have a diet to lose weight and an exercise program such as walking daily. Otherwise he is going to have continued progressive heart disease as well as kidney disease and probable strokes. I have added carvedilol to his current medical regiment to improve his hypertension. The other medications I believe are adequate. History of Present Illness Attending Physician: Lidia Hills MD History of Present Illness This is a 46-year-old male patient who was admitted with hypertensive urgency and malignant hypertension. The patient has had known hypertension for about a decade. He has been treated for his hypertension but admits to being frequently noncompliant with his medications. He has no prior history of heart disease, strokes or kidney disease. He is moderately obese and has a history of diabetes. He has been on multiple different diets and considered bariatric surgery at one time but then backed out. He has sleep apnea but cannot wear the mask and has a appliance made by his dentist. He has no other lab findings or history that would suggest a secondary cause of his hypertension. At this time I think were dealing with primary hypertension which has been undertreated. Allergies Allergy/AdvReac Type Severity Reaction Status Date / Time latex Allergy Mild Rash Verified 03/02/22 22:50 Home Medications Medication Instructions Recorded Confirmed Type atorvastatin 10 mg tablet 10 mg PO HS 12/22/21 03/20/22 History losartan 100 mg tablet 100 mg PO DAILY 12/22/21 03/20/22 History metformin 500 mg tablet,extended 500 mg PO BID 12/22/21 03/20/22 History release 24 hr valacyclovir 500 mg tablet 500 mg PO DAILY PRN breakouts 12/22/21 03/20/22 History amlodipine 10 mg tablet 10 mg PO DAILY #30 tabs 12/23/21 03/20/22 Rx hydralazine 25 mg PO TID 03/20/22 03/20/22 History metoprolol tartrate 25 mg tablet 25 mg PO BID 03/20/22 03/20/22 History semaglutide 1 mg/dose (4 mg/3 mL) 0.25 mg subcut WK 03/20/22 03/20/22 History subcutaneous pen injector (Ozempic) Patient History Medical History Acquired deviated nasal septum Elevated troponin HLD (hyperlipidemia) HTN (hypertension) Surgical History No pertinent past surgical history Family History Other Heart disease Social History Smoking Status: Never smoker Second Hand Exposure: No; Hx Alcohol Use: No Hx Substance Use: No Preferred Language: Malian Communication Ability: Effective Rn Coronary Care Unit Required: No Beliefs That Will Affect Care: Zoroastrian Zoroastrian Beliefs: no pork Current Living Situation: Spouse and Family Current Living Situation Comment: Pt lives with family in 3 story home Other Information That Helps Us Care for You: No Feels Safe at Home: Yes Safety Concerns: Feels Safe At This Time Assistive Devices: None Review of Systems Review of Systems: Review of Systems: See HPI for pertinent positives. All other 10 point review of systems are negative. Physical Exam Physical Exam: General: no acute distress and stated age Head: normocephalic, no masses, lesions, tenderness or abnormalities Eyes: conjunctiva are pink and non-injected, sclera clear Neck: supple, no adenopathy, no bruits, normal jugular venous pulse, no hepatojugular reflux Chest: normal shape and normal respiratory effort Lungs: clear to auscultation and percussion Cardiac Exam: - regular rate & rhythm, no murmurs gallops or rubs - normal S1, normal S2 Pulses: 2(+) throughout Abdomen: abdomen soft, non-tender, no abnormal masses and no hepatosplenomegaly Musculoskeletal: no gait disturbance, no joint inflammation, no deforming arthritis Extremities: no edema and no cyanosis Neuro: grossly normal exam Results & Data ([facility]) Vital Signs (Past 12 Hours) Vital Signs Temp Pulse Pulse Resp BP BP Pulse Ox 03/20/22 12:04 37 C 70 20 163/110 H 98 03/20/22 11:20 03/20/22 02:39 03/20/22 06:00 77 17 97 03/20/22 06:00 171/94 H 03/20/22 05:30 77 21 96 03/20/22 05:30 169/107 H 03/20/22 05:00 90 20 93 03/20/22 05:00 149/99 H 03/20/22 04:30 93 H 21 97 03/20/22 04:00 101 H 18 96 03/20/22 04:00 168/109 H 03/20/22 03:50 100 H 19 95 03/20/22 03:50 155/105 H 03/20/22 03:37 171/113 H 03/20/22 03:37 93 H 19 96 03/20/22 03:30 88 21 94 03/20/22 03:30 170/105 H 03/20/22 03:04 94 H 20 95 03/20/22 04:51 03/20/22 03:51 103 H 18 155/105 H 97 03/20/22 03:32 170/105 H 03/20/22 03:00 170/125 H 03/20/22 05:00 80 17 149/99 H 93 03/20/22 04:57 86 17 181/117 H 93 03/20/22 03:03 96 H 98 03/20/22 02:42 37.3 C 93 H 18 213/133 H 95 O2 Del Method 03/20/22 12:04 Room Air 03/20/22 11:20 Room Air 03/20/22 02:39 Room Air 03/20/22 06:00 03/20/22 06:00 03/20/22 05:30 03/20/22 05:30 03/20/22 05:00 03/20/22 05:00 03/20/22 04:30 03/20/22 04:00 03/20/22 04:00 03/20/22 03:50 03/20/22 03:50 03/20/22 03:37 03/20/22 03:37 03/20/22 03:30 03/20/22 03:30 03/20/22 03:04 03/20/22 04:51 Room Air 03/20/22 03:51 Room Air 03/20/22 03:32 03/20/22 03:00 03/20/22 05:00 Room Air 03/20/22 04:57 Room Air 03/20/22 03:03 Room Air 03/20/22 02:42 Room Air Laboratory Results Laboratory Results - last 24 hr 03/20/22 03/20/22 03/20/22 02:59 02:59 03:55 WBC 8.83 RBC 5.12 Hgb 16.3 Hct 46.2 MCV 90.2 MCH 31.8 MCHC 35.3 RDW Std Deviation 39.7 RDW Coeff of Shabana 12.1 Plt Count 278 MPV 10.4 Immature Gran % (Auto) 0.3 Neut % (Auto) 65.1 Lymph % (Auto) 22.5 Addison % (Auto) 7.6 Eos % (Auto) 3.9 Baso % (Auto) 0.6 Neut # (Auto) 5.75 Lymph # (Auto) 1.99 Addison # (Auto) 0.67 Eos # (Auto) 0.34 Baso # (Auto) 0.05 Immature Gran # (Auto) 0.03 H Sodium 139 Potassium 3.7 Chloride 105 Carbon Dioxide 26 Anion Gap 8 BUN 15 Creatinine 0.87 Est Cr Clr Drug Dosing 130.1 Est GFR ( Amer) 120.0 Est GFR (Non-Af Amer) 103.5 BUN/Creatinine Ratio 17.2 Glucose 134 H POC Glucose Estimat Average Glucose Hemoglobin A1c Calcium 9.4 Magnesium Total Bilirubin 0.8 AST 20 ALT 25 Alkaline Phosphatase 77 Troponin I High Sens 35.6 H Total Protein 7.3 Albumin 4.4 Globulin 2.9 Albumin/Globulin Ratio 1.5 SARS-CoV-2, RNA, NAAT NEGATIVE 03/20/22 03/20/22 03/20/22 08:20 08:20 08:20 WBC 8.17 RBC 4.91 Hgb 15.5 Hct 44.6 MCV 90.8 MCH 31.6 MCHC 34.8 RDW Std Deviation 40.0 RDW Coeff of Shabana 12.2 Plt Count 258 MPV 10.1 Immature Gran % (Auto) 0.5 Neut % (Auto) 68.8 Lymph % (Auto) 19.3 Addison % (Auto) 7.1 Eos % (Auto) 3.8 Baso % (Auto) 0.5 Neut # (Auto) 5.62 Lymph # (Auto) 1.58 Addison # (Auto) 0.58 Eos # (Auto) 0.31 Baso # (Auto) 0.04 Immature Gran # (Auto) 0.04 H Sodium 139 Potassium 3.9 Chloride 106 Carbon Dioxide 26 Anion Gap 7 BUN 14 Creatinine 0.84 Est Cr Clr Drug Dosing 134.7 Est GFR ( Amer) 121.7 Est GFR (Non-Af Amer) 105.0 BUN/Creatinine Ratio 16.7 Glucose 107 H POC Glucose Estimat Average Glucose 108 Hemoglobin A1c 5.4 Calcium 9.0 Magnesium 2.0 Total Bilirubin AST ALT Alkaline Phosphatase Troponin I High Sens 36.7 H Total Protein Albumin Globulin Albumin/Globulin Ratio SARS-CoV-2, RNA, NAAT 03/20/22 12:03 WBC RBC Hgb Hct MCV MCH MCHC RDW Std Deviation RDW Coeff of Shabana Plt Count MPV Immature Gran % (Auto) Neut % (Auto) Lymph % (Auto) Addison % (Auto) Eos % (Auto) Baso % (Auto) Neut # (Auto) Lymph # (Auto) Addison # (Auto) Eos # (Auto) Baso # (Auto) Immature Gran # (Auto) Sodium Potassium Chloride Carbon Dioxide Anion Gap BUN Creatinine Est Cr Clr Drug Dosing Est GFR ( Amer) Est GFR (Non-Af Amer) BUN/Creatinine Ratio Glucose POC Glucose 96 Estimat Average Glucose Hemoglobin A1c Calcium Magnesium Total Bilirubin AST ALT Alkaline Phosphatase Troponin I High Sens Total Protein Albumin Globulin Albumin/Globulin Ratio SARS-CoV-2, RNA, NAAT Medications Administered Current Inpatient Medications Acetaminophen (Acetaminophen 325 Mg Tab) 650 mg PO Q4H PRN PRN Reason: Pain or Fever Stop: 04/19/22 08:01 Amlodipine Besylate (Amlodipine Besylate 5 Mg Tab) 10 mg PO DAILY [facility] Stop: 04/19/22 08:59 Last Admin: 03/20/22 10:19 Dose: 10 mg Aspirin (Aspirin 81 Mg Ectab) 81 mg PO QAM [facility] Stop: 04/20/22 08:59 Atorvastatin Calcium (Atorvastatin 10 Mg Tab) 10 mg PO HS [facility] Stop: 04/19/22 20:59 Carvedilol (Carvedilol 6.25 Mg Tab) 6.25 mg PO BID [facility] Stop: 04/19/22 12:44 Dextrose (Dextrose 50% 50 Ml Syringe) 25 - 50 ml IV UD PRN; Protocol PRN Reason: Hypoglycemia Protocol Stop: 04/19/22 08:01 Glucagon (Glucagon For Inj 1 Mg Vial) 1 mg SQ UD PRN; Protocol PRN Reason: Hypoglycemia Protocol Stop: 04/19/22 08:01 Glucose (Glucose 40% Gel 15 Gm Tube) 15 - 30 gm PO UD PRN; Protocol PRN Reason: Hypoglycemia Protocol Stop: 04/19/22 08:01 Glucose (Glucose 10 Tab/Tube) 4 - 8 tab PO UD PRN; Protocol PRN Reason: Hypoglycemia Treatment Stop: 04/19/22 08:01 Hydralazine HCl (Hydralazine Hcl 25 Mg Tab) 25 mg PO TID MONICA Stop: 04/19/22 08:59 Last Admin: 03/20/22 10:19 Dose: 25 mg Insulin Aspart (Insulin Aspart Per Unit) 0 units SC Q6 [facility] Stop: 04/19/22 08:01 Last Admin: 03/20/22 12:47 Dose: Not Given Labetalol HCl (Labetalol Hcl Iv 5 Mg/Ml 20ml) 10 mg IV Q4H PRN PRN Reason: Hypertension SBP > 170 Stop: 04/19/22 08:01 Losartan Potassium (Losartan Potassium 50 Mg Tab) 100 mg PO DAILY [facility] Stop: 04/19/22 08:59 Last Admin: 03/20/22 10:20 Dose: 100 mg Miscellaneous (Carbohydrates For Hypoglycemia ) 15 - 30 gm PO UD PRN PRN Reason: Hypoglycemia Protocol Stop: 04/19/22 08:01 Nitroglycerin (Nitroglycerin Sl 0.4 Mg/Tab Tab) 0.4 mg SL UD PRN PRN Reason: Chest Pain Stop: 04/19/22 08:01 Polyethylene Glycol (Polyethylene (Miralax) 17 Gm Pack) 17 gm PO DAILY PRN PRN Reason: Constipation Stop: 04/19/22 08:01 (1) Headache Headache chronicity pattern: acute headache Headache type: unspecified Intractability: not intractable Qualified Code(s): R51.9 - Headache, u nspecified
[2022-03-20] MEDS: carvediloL 6.25 MG TAB PO SCH ×2 (13:28→19:53)
--- NOTE | 2022-03-20 15:19 | Electrocardiogram Report ---
Test Reason : Blood Pressure : / mmHG Vent. Rate : 089 BPM Atrial Rate : 089 BPM P-R Int : 196 ms QRS Dur : 100 ms QT Int : 376 ms P-R-T Axes : 017 -69 033 degrees QTc Int : 457 ms Poor data quality, interpretation may be adversely affected Normal sinus rhythm Incomplete right bundle branch block Left anterior fascicular block Poor R wave progression, consider anterior WA vs. lead placement vs. LVH Minimal voltage criteria for LVH, may be normal variant Abnormal ECG When compared with ECG of 18-MAR-2022 21:38, No significant change was found Confirmed by Ezequiel Shook ([id number]) on 03/20/2022 3:19:12 PM Referred By: REFERRED SELF Confirmed By:Ezequiel Shook
[2022-03-20] MEDS ORDERED: ATORVASTATIN 10 MG TAB PO SCH (21:00)
[2022-03-21 06:23] LABS: Hematocrit (blood only) 44.1 % (40.1-51.0); Hemoglobin 15.2 g/dl (14.0-18.0); Mean Corpuscular Hemoglobin 31.3 pg (25.0-34.0); Mean Corpuscular Hgb Conc 34.5 g/dL (32.0-36.0); Mean Corpuscular Volume 90.9 fL (80.0-100.0); Mean Platelet Volume 10.6 fL (9.4-12.4); Platelet Count 280 K/uL (130-400); RDW Coefficient of Variation 12.3 % (11.5-14.5); RDW Standard Deviation 40.5 fL (36.4-46.3); Red Blood Count 4.85 M/uL (4.63-6.08); White Blood Count 8.59 K/ul (4.8-10.8)
[2022-03-21 07:10] LABS: Calcium 9.1 mg/dl (8.5-10.1); Potassium 3.8 mmol/L (3.5-5.1)
[2022-03-21 07:15] LABS: BUN Creatinine Ratio 19.8 (10-20); Creatinine Clr Calc Pharmacy 124.4 ml/min; Est GFR (African American) 116.7 ml/min; Est GFR (Non-African American) 100.7 ml/min
[2022-03-21] MEDS: INSULIN ASPART PER UNIT SC SCH ×2 (08:49→11:56)
[2022-03-21] MEDS: amLODIPine BESYLATE 5 MG TAB PO SCH (08:51)
[2022-03-21] MEDS: hydrALAZINE HCL 25 MG TAB PO SCH ×2 (08:51→13:44)
[2022-03-21] MEDS: carvediloL 6.25 MG TAB PO SCH (08:51)
[2022-03-21] MEDS: LOSARTAN POTASSIUM 50 MG TAB PO SCH (08:51)
[2022-03-21] MEDS ORDERED: ASPIRIN 81 MG ECTAB PO SCH ×2 (09:00)
--- NOTE | 2022-03-21 11:00 | Electrocardiogram Report ---
Test Reason : Blood Pressure : / mmHG Vent. Rate : 059 BPM Atrial Rate : 059 BPM P-R Int : 208 ms QRS Dur : 102 ms QT Int : 464 ms P-R-T Axes : 003 -51 015 degrees QTc Int : 459 ms Sinus bradycardia Incomplete right bundle branch block Left anterior fascicular block Poor R wave progression, consider anterior MO vs. lead placement vs. LVH Minimal voltage criteria for LVH, may be normal variant Abnormal ECG When compared with ECG of 20-MAR-2022 02:51, Vent. rate has decreased BY 30 BPM Confirmed by Ezequiel Shook ([id number]) on 03/21/2022 10:59:42 AM Referred By: REFERRED SELF Confirmed By:Ezequiel Shook
--- NOTE | 2022-03-21 11:12 | Cardiology Progress Note ---
Date of Service March 21, 2022 Assessment & Plan (1) Hypertensive emergency: (2) Headache: (3) Chest pain: (4) NEO (obstructive sleep apnea): (5) Elevated troponin: (6) Hypertensive heart disease: Plan The patient is clinically stable and I think further treatment of his hyper tension and other risk factors can be done as an outpatient. The patient did request if he could have a machine and mask similar to the one in the hospital which is far better than was given to him years ago for his sleep apnea, that he feels he can utilize it. Also he like to take his blood pressure daily and has a machine but the blood pressure cuffs are too small for his arms. I have asked the shoe caser to make suggestions on where the patient can obtain a sleep apnea machine and mask similar to what we have a here in the hospital as well as a large blood pressure cuff. Admission and Anticipated Discharge Date Admission Date: March 20, 2022 Subjective The patient used the hospital nasal CPAP last night and feels exceptionally good today. Review of Systems Review of Systems: Review of Systems: See HPI for pertinent positives. All other 10 point review of systems are negative. Physical Exam Physical Exam: General: no acute distress and stated age Head: normocephalic, no masses, lesions, tenderness or abnormalities Eyes: conjunctiva are pink and non-injected, sclera clear Neck: supple, no adenopathy, no bruits, normal jugular venous pulse, no hepatojugular reflux Chest: normal shape and normal respiratory effort Lungs: clear to auscultation and percussion Cardiac Exam: - regular rate & rhythm, no murmurs gallops or rubs - normal S1, normal S2 Pulses: 2(+) throughout Abdomen: abdomen soft, non-tender, no abnormal masses and no hepatosplenomegaly Musculoskeletal: no gait disturbance, no joint inflammation, no deforming arthritis Extremities: no edema and no cyanosis Neuro: grossly normal exam Results & Data ([facility]) Vital Signs (Past 12 Hours) Vital Signs Temp Pulse Pulse Resp BP Pulse Ox O2 Del Method 03/21/22 08:12 36.6 C 59 L 18 138/83 95 CPAP 03/21/22 07:25 17 96 03/21/22 03:00 36.6 C 54 L 18 137/88 95 CPAP 03/21/22 02:50 17 97 03/21/22 00:06 73 FiO2 03/21/22 08:12 03/21/22 07:25 21 03/21/22 03:00 03/21/22 02:50 03/21/22 00:06 Laboratory Results Laboratory Results - last 24 hr 03/20/22 03/20/22 03/20/22 12:03 14:23 16:32 WBC RBC Hgb Hct MCV MCH MCHC RDW Std Deviation RDW Coeff of Shabana Plt Count MPV Sodium Potassium Chloride Carbon Dioxide Anion Gap BUN Creatinine Est Cr Clr Drug Dosing Est GFR ( Amer) Est GFR (Non-Af Amer) BUN/Creatinine Ratio Glucose POC Glucose 96 80 Calcium Troponin I High Sens 35.1 H 03/20/22 03/20/22 03/21/22 20:23 20:30 05:29 WBC 8.59 RBC 4.85 Hgb 15.2 Hct 44.1 MCV 90.9 MCH 31.3 MCHC 34.5 RDW Std Deviation 40.5 RDW Coeff of Shabana 12.3 Plt Count 280 MPV 10.6 Sodium Potassium Chloride Carbon Dioxide Anion Gap BUN Creatinine Est Cr Clr Drug Dosing Est GFR ( Amer) Est GFR (Non-Af Amer) BUN/Creatinine Ratio Glucose POC Glucose 88 Calcium Troponin I High Sens 35.0 H 03/21/22 03/21/22 05:29 07:22 WBC RBC Hgb Hct MCV MCH MCHC RDW Std Deviation RDW Coeff of Shabana Plt Count MPV Sodium 138 Potassium 3.8 Chloride 105 Carbon Dioxide 26 Anion Gap 7 BUN 18 Creatinine 0.91 Est Cr Clr Drug Dosing 124.4 Est GFR ( Amer) 116.7 Est GFR (Non-Af Amer) 100.7 BUN/Creatinine Ratio 19.8 Glucose 88 POC Glucose 89 Calcium 9.1 Troponin I High Sens Medications Administered Current Inpatient Medications Acetaminophen (Acetaminophen 325 Mg Tab) 650 mg PO Q4H PRN PRN Reason: Pain or Fever Stop: 04/19/22 08:01 Last Admin: 03/20/22 20:00 Dose: 650 mg Amlodipine Besylate (Amlodipine Besylate 5 Mg Tab) 10 mg PO DAILY [facility] Stop: 04/19/22 08:59 Last Admin: 03/21/22 08:51 Dose: 10 mg Aspirin (Aspirin 81 Mg Ectab) [facility] [place]: 04/20/22 08:59 Last Admin: 03/21/22 08:51 Dose: 81 mg Atorvastatin Calcium (Atorvastatin 10 Mg Tab) 10 mg PO HS [facility] Stop: 04/19/22 20:59 Last Admin: 03/20/22 19:53 Dose: 10 mg Carvedilol (Carvedilol 6.25 Mg Tab) 6.25 mg PO BID [facility] Stop: 04/19/22 12:44 Last Admin: 03/21/22 08:51 Dose: 6.25 mg Dextrose (Dextrose 50% 50 Ml Syringe) 25 - 50 ml IV UD PRN; Protocol PRN Reason: Hypoglycemia Protocol Stop: 04/19/22 08:01 Glucagon (Glucagon For Inj 1 Mg Vial) 1 mg SQ UD PRN; Protocol PRN Reason: Hypoglycemia Protocol Stop: 04/19/22 08:01 Glucose (Glucose 40% Gel 15 Gm Tube) 15 - 30 gm PO UD PRN; Protocol PRN Reason: Hypoglycemia Protocol Stop: 04/19/22 08:01 Glucose (Glucose 10 Tab/Tube) 4 - 8 tab PO UD PRN; Protocol PRN Reason: Hypoglycemia Treatment Stop: 04/19/22 08:01 Hydralazine HCl (Hydralazine Hcl 25 Mg Tab) 25 mg PO TID [facility] Stop: 04/19/22 08:59 Last Admin: 03/21/22 08:51 Dose: 25 mg Insulin Aspart (Insulin Aspart Per Unit) 0 units SC ACHS [facility] Stop: 04/19/22 16:29 Last Admin: 03/21/22 08:49 Dose: Not Given Labetalol HCl (Labetalol Hcl Iv 5 Mg/Ml 20ml) 10 mg IV Q4H PRN PRN Reason: Hypertension SBP > 170 Stop: 04/19/22 08:01 Losartan Potassium (Losartan Potassium 50 Mg Tab) 100 mg PO DAILY [facility] Stop: 04/19/22 08:59 Last Admin: 03/21/22 08:51 Dose: 100 mg Miscellaneous (Carbohydrates For Hypoglycemia ) 15 - 30 gm PO UD PRN PRN Reason: Hypoglycemia Protocol Stop: 04/19/22 08:01 Nitroglycerin (Nitroglycerin Sl 0.4 Mg/Tab Tab) 0.4 mg SL UD PRN PRN Reason: Chest Pain Stop: 04/19/22 08:01 Polyethylene Glycol (Polyethylene (Miralax) 17 Gm Pack) 17 gm PO DAILY PRN PRN Reason: Constipation Stop: 04/19/22 08:01 (1) Headache Headache chronicity pattern: acute headache Headache type: unspecified Intractability: not intractable Qualified Code(s): R51.9 - Headache, unspecified
--- NOTE | 2022-03-21 15:02 | Discharge Summary ---
Discharge Summary Date of Service March 21, 2022 Notes For Next Care Provider Continue to encourage medication adherence Continue to encourage lifestyle modification and weight loss Medication Changes From Visit Metoprolol changed to Carvedilol Admission HPI Per Admitting Provider 46-year-old male with past medical history significant for obstructive sleep apnea, seasonal allergic rhinitis, hyperlipidemia, hypertension, venous stasis of both lower extremities, obesity, right rotator cuff tendinitis, and erectile dysfunction, who presents with hypertensive urgency and chest pain. The patient says he took his medications of amlodipine, losartan, and hydralazine, but his blood pressure was running high in the 180s at home and also noted some left-si ded chest pain, which was tender in that area when he came in, and later, he also had some left-sided neck pain, but that all resolved now. Currently, he is sleeping, but arousable. Denies any headache. No blurred visions. No earache. No runny nose. No sore throat. No cough. No fevers. No nausea. No abdominal pain now. No shortness of breath. Normal bowel and bladder movements. No swelling in the legs. Recently seen by cardiology on 03/18/2022 and his metoprolol was stopped because it was not helping his blood pressure and there was a plan to start on Coreg if needed. The patient had nuclear stress test in January of 2022, and as he had significant hypertension, stress test portion was not performed and it was nonischemic. Admission Exam Per Admitting Provider GENERAL: The patient is obese, not in acute distress. VITAL SIGNS: Temperature 37.3, pulse 80, respiratory rate 17, blood pressure was 213/133 when he came in, currently 149/99; and oxygen 93% on room air. HEENT: Pupils equal, round, and reactive to light. Oral mucosa moist. NECK: No JVD. No neck masses. CARDIOVASCULAR: S1 and S2 heard. Regular rate and rhythm. No murmur. No gallop. RESPIRATORY SYSTEM: Normal AP diameter. No accessory muscle use. No wheezing. No crackles. ABDOMEN: Soft, bowel sounds present, nontender, no distention. CENTRAL NERVOUS SYSTEM: Cranial nerves II through XII are grossly intact, nonfocal. EXTREMITIES: No edema. No erythema. Principal Dx & Hospital Course #1 = Principal Diagnosis (1) Chest pain: (2) Hypertensive emergency: (3) Hypertensive heart disease: (4) Headache: (5) Elevated troponin: Plan Patient presented with chest pain and headache Blood pressure was elevated at 213/133 Chest XR did not show any acute abnormalities Troponin was mildly elevated due to demand ischemia Echocardiogram showed mod conc LVH, EF of 65-70%, no acute valvular pathology Patient acknowledged poor medication adherence Patient's losartan, amlodipine and hydralazine were started His metoprolol was changed to Carvedilol 6.25mg bid. His BP improved and symptoms resolved. BP at discharge was 146/97 Patient was counseled extensively about need for medication adherence and to continue lifestyle modification (weight loss and exercise) Discharge Exam Constitutional + well hydrated and + obese Eyes PERRL, conjunctivae normal, anicteric sclerae ENMT external ear and nose normal, oropharynx normal Respiratory normal respiratory effort, lungs clear to auscultation Cardiovascular RRR, no murmur, no edema Gastrointestinal (Abdomen) normal bowel sounds, soft, nontender, no hepatosplenomegaly Musculoskeletal no cyanosis or clubbing, extremities motor strength 5/5 Neurologic PERRL, EOMI, accommodation nl, no face palsy, no dysarthria Psychiatric A+Ox3, euthymic affect Updated Medication List Medication Instructions Recorded Confirmed Type atorvastatin 10 mg tablet 10 mg PO HS 12/22/21 03/20/22 History losartan 100 mg tablet 100 mg PO DAILY 12/22/21 03/20/22 History metformin 500 mg tablet,extended 500 mg PO BID 12/22/21 03/20/22 History release 24 hr valacyclovir 500 mg tablet 500 mg PO DAILY PRN breakouts 12/22/21 03/20/22 History amlodipine 10 mg tablet 10 mg PO DAILY #30 tabs 12/23/21 03/20/22 Rx hydralazine 25 mg PO TID 03/20/22 03/20/22 History semaglutide 1 mg/dose (4 mg/3 mL) 0.25 mg subcut WK 03/20/22 03/20/22 History subcutaneous pen injector (Ozempic) carvedilol 6.25 mg tablet 6.25 mg PO BID #60 tabs 03/21/22 Rx Hospital Stay Data Consultations 03/20/22 04:31 ED Decision to Admit Stat 03/20/22 08:02 Consult Cardiology Routine Pending Results Patient Have Any Pending Studies at Discharge: No Discharge Instructions Given to Patient (Per Discharging Provider) Mr Alia Hamlin came to the hospital complaining of chest pain and headache. You were noted to have significantly elevated blood pressure. Echocardiogram showed hypertensive heart disease. Your blood pressure was controlled Your metoprolol was changed to carvedilol. Please continue taking your amlodipine, losartan and hydralazine. Please follow up with your Primary Doctor and Surgical Instrument Mechanic as we discussed. It is extremely important that you take your medications as prescribed. It was a pleasure taking care of you. Total Time Total Time Spent Total Time Spent (In Minutes): 50 Total Time Includes: Examination of the Patient, Discharge Planning, Medication Reconciliation and Communication With Other Providers
== END 2022-03-21 14:31 | disposition home or self-care (01) ==
LOC: ED 02:39 → EDINP 04:55 → INTOOBSV 04:55 → 2E 08:03
DX: N52.9 Male erectile dysfunction, unspecified; I11.9 Hypertensive heart disease without heart failure; Z79.899 Other long term (current) drug therapy; E11.9 Type 2 diabetes mellitus without complications; Z79.84 Long term (current) use of oral hypoglycemic drugs; E66.9 Obesity, unspecified; Z91.040 Latex allergy status; R07.9 Chest pain, unspecified; R77.8 Other specified abnormalities of plasma proteins; E78.5 Hyperlipidemia, unspecified; G47.33 Obstructive sleep apnea (adult) (pediatric); Z20.822 Contact with and (suspected) exposure to COVID-19; I16.0 Hypertensive urgency; I87.8 Other specified disorders of veins; M75.101 Unspecified rotator cuff tear or rupture of right shoulder, not specified as traumatic; Z68.33 Body mass index [BMI] 33.0-33.9, adult; J30.2 Other seasonal allergic rhinitis